=== PATIENT | male | born 1960 | race Caucasian/White ===

== ENCOUNTER 2020-12-21 11:27 | Outpatient (CLI) | payer BC, SELFPAY ==
[2020-12-21 11:56] LABS: Hematocrit 41.3 % (42.0-52.0); Hemoglobin 14.1 g/dL (14.0-18.0); Mean Corpuscular HGB Conc 34.1 g/dl (32-36); Mean Corpuscular Volume 90.8 fl (80-100); Mean Platelet Volume 9.7 fl (7.4-10.4); Platelet Count Result 222 k/mm3 (150-375); Red Blood Count 4.55 M/mm3 (4.6-6.20); Red Cell Distribution Width 12.3 % (11.5-14.5)
[2020-12-21 12:10] LABS: Alanine Aminotransferase 42 U/L (4-50); Albumin Level 4.8 g/dL (3.5-5.1); Alkaline Phosphatase 64 U/L (38-126); Anion Gap 10 mmol/L (8-16); Aspartate Amino Transferase 41 U/L (17-59); Bilirubin,Total 1.1 mg/dL (0.2-1.3); Blood Urea Nitrogen 17 mg/dL (9-20); Calcium 9.5 mg/dL (8.4-10.2); Carbon Dioxide 25 mmol/L (22-30); Chloride 103 mmol/L (98-107); Cholesterol 132 mg/dL (0-200); Estimated Glomerular Filt Rate > 60; Glucose 162 mg/dL (75-110); HDL Direct 49 mg/dL; Potassium 4.9 mmol/L (3.4-5.0); Sodium 138 mmol/L (137-145); Triglycerides 174 mg/dL (<150)
[2020-12-21 12:21] LABS: LDL Cholesterol Direct 62 mg/dL
[2020-12-21 12:40] LABS: Prostate Specific Antigen 0.9 ng/mL (< OR = 4.0)
== END 2020-12-21 11:28 | disposition home or self-care (01) ==
LOC: ANHLAB 11:29
PROVIDERS: PCP Family Medicine; Visit Provider Nurse Practitioner Family
DX: I10 Essential (primary) hypertension (principal); Z12.5 Encounter for screening for malignant neoplasm of prostate
CPT/HCPCS: 36415; 80053; 80061; 84153; 85027; G0103

== ENCOUNTER 2021-07-31 09:08 | Outpatient (CLI) | payer BC, SELFPAY ==
[2021-07-31 09:28] LABS: Hematocrit 37.3 % (42.0-52.0); Hemoglobin 12.1 g/dL (14.0-18.0); Mean Corpuscular HGB Conc 32.4 g/dl (32-36); Mean Corpuscular Hemoglobin 30.6 pg (26-34); Mean Corpuscular Volume 94.2 fl (80-100); Mean Platelet Volume 9.6 fl (7.4-10.4); Platelet Count Result 214 k/mm3 (150-375); Red Blood Count 3.96 M/mm3 (4.6-6.20); Red Cell Distribution Width 12.9 % (11.5-14.5); White Blood Count 8.1 K/mm3 (4.5-10.0)
[2021-07-31 10:05] LABS: Anion Gap 12 mmol/L (8-16); Blood Urea Nitrogen 43 mg/dL (9-20); Calcium 9.3 mg/dL (8.4-10.2); Carbon Dioxide 20 mmol/L (22-30); Chloride 107 mmol/L (98-107); Cholesterol 145 mg/dL (0-200); Estimated Glomerular Filt Rate > 60; Glucose 183 mg/dL (65-110); HDL Direct 40 mg/dL; Sodium 139 mmol/L (137-145); Triglycerides 390 mg/dL (<150)
[2021-07-31 10:14] LABS: LDL Cholesterol Direct 48 mg/dL
[2021-07-31 10:37] LABS: Prostate Specific Antigen 0.9 ng/mL (< OR = 4.0)
== END 2021-07-31 09:09 | disposition home or self-care (01) ==
PROVIDERS: PCP Family Medicine; Visit Provider Nurse Practitioner Family
DX: N28.9 Disorder of kidney and ureter, unspecified (principal); Z12.5 Encounter for screening for malignant neoplasm of prostate; I10 Essential (primary) hypertension; F41.9 Anxiety disorder, unspecified
CPT/HCPCS: 36415; 80048; 80061; 84153; 84443; 85027

== ENCOUNTER 2021-11-13 08:01 | Outpatient (CLI) | payer BC, SELFPAY ==
[2021-11-13 09:19] LABS: Cholesterol 163 mg/dL (0-200); HDL Direct 40 mg/dL; Triglycerides 407 mg/dL (<150)
[2021-11-13 09:29] LABS: LDL Cholesterol Direct 75 mg/dL
[2021-11-13 09:52] LABS: Prostate Specific Antigen 0.8 ng/mL (< OR = 4.0)
== END 2021-11-13 08:02 | disposition home or self-care (01) ==
PROVIDERS: PCP Family Medicine; Visit Provider Nurse Practitioner Family
DX: R79.89 Other specified abnormal findings of blood chemistry (principal); E78.2 Mixed hyperlipidemia; Z12.5 Encounter for screening for malignant neoplasm of prostate
CPT/HCPCS: 36415; 80061; 84153; G0103

== ENCOUNTER 2022-07-18 09:09 | Outpatient (CLI) | payer BC, SELFPAY ==
[2022-07-18 09:58] LABS: Hematocrit 36.5 % (42.0-52.0); Mean Corpuscular HGB Conc 32.9 g/dl (32-36); Mean Corpuscular Hemoglobin 30.2 pg (26-34); Mean Corpuscular Volume 91.9 fl (80-100); Platelet Count Result 226 k/mm3 (150-375); Red Blood Count 3.97 M/mm3 (4.6-6.20); Red Cell Distribution Width 12.8 % (11.5-14.5); White Blood Count 9.8 K/mm3 (4.5-10.0)
[2022-07-18 10:10] LABS: Alanine Aminotransferase 21 U/L (6-50); Albumin Level 4.7 g/dL (3.5-5.1); Alkaline Phosphatase 63 U/L (38-126); Anion Gap 14 mmol/L (8-16); Aspartate Amino Transferase 30 U/L (17-59); Blood Urea Nitrogen 44 mg/dL (9-20); Calcium 9.2 mg/dL (8.4-10.2); Carbon Dioxide 18 mmol/L (22-30); Chloride 101 mmol/L (98-107); Cholesterol 130 mg/dL (0-200); Estimated Glomerular Filt Rate 44; Glucose 170 mg/dL (65-110); HDL Direct 35 mg/dL; Potassium 5.1 mmol/L (3.4-5.0); Sodium 133 mmol/L (137-145); Triglycerides 313 mg/dL (<150)
[2022-07-18 10:21] LABS: LDL Cholesterol Direct 37 mg/dL
[2022-07-18 10:39] LABS: Hemoglobin A1C 6.9 % (<5.7)
[2022-07-18 11:24] LABS: Creatinine Urine 113.4 mg/dL
[2022-07-18 11:29] LABS: MALB Creatinine Ratio 36.2 mg/g (0-30)
== END 2022-07-18 09:10 | disposition home or self-care (01) ==
LOC: ANHLAB 09:10
PROVIDERS: PCP Family Medicine; Visit Provider Nurse Practitioner Family
DX: E11.9 Type 2 diabetes mellitus without complications (principal); F41.1 Generalized anxiety disorder; M10.9 Gout, unspecified; Z12.5 Encounter for screening for malignant neoplasm of prostate; E78.2 Mixed hyperlipidemia; I10 Essential (primary) hypertension
CPT/HCPCS: 36415; 80053; 80061; 82043; 83036; 84153; 84443; 84550; 85027; G0103

== ENCOUNTER 2022-12-31 00:26 | Day surgery (SDC) | payer BC, SELFPAY ==
[2022-12-18 09:36] VITALS: BMI 32.8
--- NOTE | 2022-12-28 15:30 | PM.HPGS ---
History of Present Illness History of Present Illness Consent: Risks, benefits, and alternatives have been discussed and questions answered. Patient agrees to proceed with procedure. Chief complaint: neoplasm screening Narrative: Leroy Ariza is a 62 year old male Referred for colon cancer screening. His last colonoscopy was a little over 2 years ago. He states that he has had polyps removed in the past. He has also had multiple episodes of diverticulitis, most recently just a few months ago. Review of Systems Review of Systems: All systems reviewed & are unremarkable except as noted in HPI and below PMFSH Past Medical History Medical History Arthritis of shoulder region, left BMI 32.0-32.9,adult BMI 33.0-33.9,adult BMI 34.0-34.9,adult Claustrophobia Diabetes Right rotator cuff tendinitis Family History Family History Mother Hypertension Family history of Alzheimer's disease Father Family history of heart disease in male family member before age 55 Sibling Hypertension Other Cerebrovascular accident Diabetes mellitus Family history of gout Family history of malignant neoplasm Social History Social History Smoking status: Never smoker Second hand tobacco smoke exposure: Yes Alcohol intake: current Substance use: never Substance use type: does not use Lack of Transportation: No Lack of Food: Never True Current Housing: I Have Housing Concerned About Future Housing: No Difficulty Paying Gas/Electric Bills: No Difficulty Paying for Meds: No Currently Unemployed: No Education: High School Diploma/GED Difficulty w/ Childcare or Family Care: No Living arrangements: with family Occupation/Education: occupation 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 Gender identity (if verbalized by the patient): Male Spiritual care concerns: No Meds Home Medications and Allergies Home Medications Medication Instructions Recorded Confirmed Type rosuvastatin 40 mg tablet 40 mg PO DAILY #90 tabs 09/18/22 12/31/22 Rx bupropion HCl 150 mg 24 hr tablet, 150 mg PO QAM #90 tabs 10/07/22 12/31/22 Rx extended release tramadol 50 mg tablet See Rx Instructions PO .COMPLEX 12/06/22 12/31/22 Rx PRN pain #120 tabs allopurinol 100 mg tablet 100 mg PO DAILY 12/18/22 12/31/22 History carvedilol 12.5 mg tablet 12.5 mg PO BID 12/18/22 12/31/22 History meloxicam 15 mg tablet 15 mg PO DAILY 12/18/22 12/31/22 History tamsulosin 0.4 mg capsule 0.4 mg PO DAILY 12/18/22 12/31/22 History clonazepam 0.5 mg tablet 0.5 mg PO TID PRN anxiety #90 tabs 12/31/22 12/31/22 Rx icosapent ethyl 1 gram capsule 2 g PO BID #360 caps 12/31/22 12/31/22 Rx lisinopril 40 mg tablet 40 mg PO DAILY #90 tabs 12/31/22 12/31/22 Rx metformin 500 mg tablet,extended 1,000 mg PO DAILY #180 tabs 12/31/22 12/31/22 Rx release 24 hr Allergies Allergy/AdvReac Type Severity Reaction Status Date / Time codeine Allergy Unknown Unknown Verified 12/31/22 07:40 naproxen Allergy Unknown Unknown Verified 12/31/22 07:40 Exam Const: General: alert Orientation/consciousness: patient oriented x3 Resp: Auscultation: clear to auscultation bilaterally Cardio: Rhythm: regular rhythm GI: GI Palp: Yes Soft to palpation and No Tenderness to palpation present (GI) Neuro: General: patient oriented x3 Assessment and Plan Assessment and plan (1) Encounter for screening colonoscopy: Code(s): Z12.11 - Encounter for screening for malignant neoplasm of colon Status: Acute Assessment and Plan: Colonoscopy with possible biopsy or polypectomy or cautery or injection of substances.
[2022-12-31 11:15] VITALS: BP 141/86; PULSE 86; RESP 18; TEMP 36.3; O2SAT 99; BMI 32.8
[2022-12-31] MEDS: LACTATED RINGERS 1,000 ML 150 ML IV CONT (11:29)
[2022-12-31 11:30] LABS: Glucose Point of Care 181 mg/dl (65-105)
[2022-12-31 12:25] VITALS: BP 118/75; PULSE 85; RESP 20; O2SAT 96
[2022-12-31 12:35] VITALS: BP 129/85; PULSE 80; RESP 15; O2SAT 97
[2022-12-31 12:45] VITALS: BP 131/88; PULSE 78; RESP 17; O2SAT 98
== END 2022-12-31 12:55 | disposition home or self-care (01) ==
PROVIDERS: PCP Family Medicine; Visit Provider Internal Medicine Gastroenterology
PROC: 0DJD8ZZ Inspection of Lower Intestinal Tract, Via Natural or Artificial Opening Endoscopic (ICD-10-PCS; CPT 45378; principal; 2022-12-31 12:30)
DX: Z12.11 Encounter for screening for malignant neoplasm of colon (principal); K57.30 Diverticulosis of large intestine without perforation or abscess without bleeding; Z86.010 Personal history of colon polyps; E11.9 Type 2 diabetes mellitus without complications; Z79.84 Long term (current) use of oral hypoglycemic drugs
CPT/HCPCS: 45378; 82948; J2704; J7120

== ENCOUNTER 2023-05-14 08:38 | Outpatient (CLI) | payer BC, SELFPAY ==
[2023-05-14 09:04] LABS: Hematocrit 36.4 % (42.0-52.0); Hemoglobin 11.6 g/dL (14.0-18.0); Mean Corpuscular HGB Conc 31.9 g/dl (32-36); Mean Corpuscular Hemoglobin 30.1 pg (26-34); Mean Corpuscular Volume 94.5 fl (80-100); Mean Platelet Volume 9.6 fl (7.4-10.4); Platelet Count Result 199 k/mm3 (150-375); Red Blood Count 3.85 M/mm3 (4.6-6.20); Red Cell Distribution Width 12.5 % (11.5-14.5); White Blood Count 7.2 K/mm3 (4.5-10.0)
[2023-05-14 09:14] LABS: Alanine Aminotransferase 31 U/L (6-50); Albumin Level 4.8 g/dL (3.5-5.1); Alkaline Phosphatase 74 U/L (38-126); Anion Gap 11 mmol/L (8-16); Aspartate Amino Transferase 31 U/L (17-59); Bilirubin,Total 0.9 mg/dL (0.2-1.3); Blood Urea Nitrogen 31 mg/dL (9-20); Calcium 9.2 mg/dL (8.4-10.2); Carbon Dioxide 22 mmol/L (22-30); Chloride 105 mmol/L (98-107); Cholesterol 116 mg/dL (0-200); Estimated Glomerular Filt Rate > 60; Glucose 184 mg/dL (65-110); HDL Direct 40 mg/dL; Sodium 138 mmol/L (137-145); Triglycerides 255 mg/dL (<150)
[2023-05-14 09:17] LABS: Iron 98 ug/dL (49-181)
[2023-05-14 09:25] LABS: LDL Cholesterol Direct 41 mg/dL
[2023-05-14 09:27] LABS: Percent Iron Saturation 23 % (20-50)
== END 2023-05-14 08:39 | disposition home or self-care (01) ==
LOC: ANHLAB 08:39
PROVIDERS: PCP Family Medicine; Visit Provider Nurse Practitioner Family
DX: F41.9 Anxiety disorder, unspecified (principal); D64.9 Anemia, unspecified; I10 Essential (primary) hypertension; E78.2 Mixed hyperlipidemia; Z12.5 Encounter for screening for malignant neoplasm of prostate
CPT/HCPCS: 36415; 80053; 80061; 83540; 83550; 84153; 84443; 85027; G0103

== ENCOUNTER 2023-07-05 13:44 | Inpatient (IN) | payer BC, SELFPAY ==
[2023-07-05] VITALS (26 sets, daily range): BP systolic 102–132; BP diastolic 64–81; PULSE 95–112; RESP 14–28; TEMP 36.6; O2SAT 96–100; BMI 33.3
--- NOTE | ~2023-07-05 | XR_ITS ---
EXAMINATION: XR chest 2V DATE: 07/05/2023 14:43 INDICATION: Increasing shortness of breath TECHNIQUE: Frontal and lateral views of the chest are obtained COMPARISON: 07/19/2020 FINDINGS: The lungs are free of acute opacities. No pleural effusion or pneumothorax. The cardiomedia stinal silhouette is normal. There is mild thoracic spondylosis. There is advanced osteoarthritis of the left glenohumeral joint. IMPRESSION: 1. No acute cardiopulmonary abnormality. Reviewed, dictated and finalized at location F.
--- NOTE | ~2023-07-05 | XR_ITS ---
EXAMINATION: XR abdomen obstructive series DATE: 07/05/2023 14:43 INDICATION: Constipation. TECHNIQUE: Upright and supine views of the abdomen on 3 radiographs were obtained. COMPARISON: None. FINDINGS: There are no dilated loops of bowel. There is a moderate volume of stool in the colon. No f ree intraperitoneal gas. IMPRESSION: 1. Nonobstructive bowel gas pattern. Reviewed, dictated and finalized at location B.
--- NOTE | ~2023-07-05 | US_ITS ---
Renal-Bladder ultrasound Clinical History: Acute kidney injury Technique: Real-time sonographic imaging of the kidneys and urinary bladder was performed. Findings: The right kidney measures 13.2 cm in length and the left kidney measures 15.2 cm. There is no hydronephrosis or renal calculus identified. Renal cortical echogenicity is within normal limits. Prominent bilateral renal cysts are present, measuring up to 4.9 cm in diameter on the right, and 6.7 cm on the left.. The urinary bladder is partially distended at the time of this exam. No intraluminal echoes are ident ified. No abnormal wall thickening is seen. Impression: No hydronephrosis. Bilateral renal cysts, as detailed above. Reviewed, dictated and finalized at location M. Impression: No hydronephrosis. Bilateral renal cysts, as detailed above.
--- NOTE | 2023-07-05 13:52 | ECG_ITS ---
Measurements Intervals [place] Rate: 110 P: 32 ID: 156 QRS: 38 QRSD: 90 T: 26 QT: 298 QTc: 405 Interpretive Statements SINUS TACHYCARDIA ABNORMAL RHYTHM ECG NO PREVIOUS ECG AVAILABLE FOR COMPARISON Electronically Signed On 07-06-2023 8:47:29 CDT by Carla Goodwin M.D.
[2023-07-05 14:05] LABS: Basophils Absolute Auto 0.1 K/mm3 (0.0-0.1); Basophils Percent Auto 0.4 % (0.2-1.2); Eosinophils Absolute Auto 0.1 K/mm3 (0-0.3); Eosinophils Percent Auto 0.4 % (0-4.4); Hematocrit 39.7 % (42.0-52.0); Hemoglobin 13.5 g/dL (14.0-18.0); Immature Granulocyte Absolute 0.07 K/mm3 (0.00-0.031); Immature Granulocyte Percent A 0.5 % (0-0.5); Lymphocytes Absolute Auto 2.21 K/mm3 (0.9-3.2); Lymphocytes Percent Auto 15.6 % (18.3-44.2); Mean Corpuscular Hemoglobin 30.5 pg (26-34); Mean Corpuscular Volume 89.8 fl (80-100); Mean Platelet Volume 9.8 fl (7.4-10.4); Monocytes Absolute Auto 1.2 K/mm3 (0.1-0.6); Monocytes Percent Auto 8.6 % (2.6-8.5); Neutrophils Absolute Auto 10.5 K/mm3 (1.3-6.7); Neutrophils Percent Auto 74.5 % (45.5-73.1); Platelet Count Result 248 k/mm3 (150-375); Red Blood Count 4.42 M/mm3 (4.6-6.20); Red Cell Distribution Width 12.6 % (11.5-14.5); White Blood Count 14.1 K/mm3 (4.5-10.0)
[2023-07-05 14:17] LABS: Alanine Aminotransferase 33 U/L (6-50); Albumin Level 5.8 g/dL (3.5-5.1); Alkaline Phosphatase 79 U/L (38-126); Anion Gap 21 mmol/L (8-16); Aspartate Amino Transferase 32 U/L (17-59); Bilirubin,Total 1.4 mg/dL (0.2-1.3); Blood Urea Nitrogen 79 mg/dL (9-20); Calcium 10.3 mg/dL (8.4-10.2); Carbon Dioxide 14 mmol/L (22-30); Chloride 100 mmol/L (98-107); Estimated Glomerular Filt Rate 14; Glucose 194 mg/dL (65-110); Potassium 5.6 mmol/L (3.4-5.0); Sodium 135 mmol/L (137-145)
--- NOTE | 2023-07-05 14:27 | ED.GENADULT ---
HPI - General Adult General Chief complaint: Shortness of Breath/Dyspnea Stated complaint: SOB Time Seen by Provider: 07/05/23 14:08 History of Present Illness HPI narrative: 62-year-old male present to the emergency department for evaluation of shortness of breath, lower leg pain and constipation. Patient reports he has been eating and drinking okay but does admit to drinking multiple sodas a day rather than water. Patient does report having some urinary retention and decreased urinary caliber. Patient denies any new medications. Related Data Home Medications Medication Instructions Recorded Confirmed meloxicam 15 mg tablet 15 mg PO DAILY 12/18/22 07/05/23 allopurinol 100 mg tablet 100 mg PO DAILY 07/05/23 07/05/23 carvedilol 12.5 mg tablet 12.5 mg PO DAILY 07/05/23 07/05/23 Allergies Allergy/AdvReac Type Severity Reaction Status Date / Time codeine Allergy Unknown Unknown Verified 07/05/23 14:07 naproxen Allergy Unknown Unknown Verified 07/05/23 14:07 Review of Systems Review of Systems: All systems reviewed & are unremarkable except as noted in HPI and below PMFSH Past Medical History Medical History (Updated 07/05/23 @ 17:17 by Aisha Vargas NP) Anxiety disorder, unspecified Arthritis of shoulder region, left BMI 32.0-32.9,adult BMI 33.0-33.9,adult BMI 34.0-34.9,adult BPH (benign prostatic hyperplasia) Claustrophobia Diabetes Essential (primary) hypertension Gout, unspecified Iron deficiency anemia Other hyperlipidemia Right rotator cuff tendinitis Type 2 diabetes mellitus without complications Surgical History Surgical History (Updated 07/05/23 @ 17:16 by Aisha Vargas NP) H/O colonoscopy with polypectomy History of cataract surgery Family History Family History Mother Hypertension Family history of Alzheimer's disease Father Family history of heart disease in male family member before age 55 Acute myocardial infarction Sibling Hypertension Other Cerebrovascular accident Diabetes mellitus Family history of gout Family history of malignant neoplasm Social History Social History (Updated 07/05/23 @ 17:19 by Aisha Vargas NP) Social History: [employer]iam [employer] other. 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 Gender identity (if verbalized by the patient): Male Spiritual care concerns: No Exam Narrative: APPEARANCE: Well appearing, no pain, no distress, well-nourished. HEAD: normocephalic, atraumatic. EYES: PERRLA/EOMI, conjunctivae clear. NOSE: Normal no drainage EARS:TMS clear with good light reflex. THROAT: Pharynx clear, no exudate. NECK: Supple. No adenopathy, no masses. RESPIRATORY: Airway patent, respirations nonlabored. Clear to auscultation bilaterally, no rales, rhonchi, wheezing. CARDIOVASCULAR: Regular rate and rhythm without murmurs rubs or gallops. ABDOMINAL: Soft, nontender, nondistended, normal bowel sounds MUSCULOSKELETAL: Moves all extremities. Strength/ROM intact, No edema, No calf tenderness. NEURO: Alert. Cranial nerves II through XII intact. Grossly intact SKIN: Warm, dry. Normal Color Course Course Emergency Course: 62-year-old male presented the ED for evaluation of worsening chronic shoulder pain, constipation and leg cramping. Patient was found to have acute on chronic kidney
[2023-07-05] MEDS: SODIUM CHLORIDE 0.9% IV 1,000 ML 999 ML IV CONT (15:06)
[2023-07-05 15:40] LABS: Creatine Kinase 380 U/L (55-170)
[2023-07-05 15:54] LABS: Glucose Point of Care 163 mg/dl (65-105)
[2023-07-05] MEDS: SODIUM ZIRCONIUM CYCLOSILICATE 10 GM POWD.PACK PO (16:03)
[2023-07-05] MEDS: DEXTROSE 50% 25 GM/50 ML SYRINGE IV PUSH (16:03)
[2023-07-05] MEDS: HYDROmorphone HCL INJ (*CRX) 1 MG/ML SYR IV PUSH (16:03)
[2023-07-05] MEDS: INSULIN HUMAN REGULAR (*BKC) 100 UNITS/ML 7 UNITS IV PUSH (16:03)
[2023-07-05] MEDS: LACTATED RINGERS 1,000 ML 100 ML IV CONT (16:52)
--- NOTE | 2023-07-05 17:11 | PM.IMHP ---
H&P: HPI History of Present Illness Date/Time: 07/05/23 17:11 Chief Complaint: Shortness of breath Narrative: This is a 62-year-old male patient who has a history of having acute kidney injury in the past. The patient states that he was outside today working any feels that he may have gotten overheated. However the patient has been drinking several sodas instead of water today. The patient reported that he also has some urinary retention and decreased urinary output. The patient stated that he would do a little bit of work any feel short of breath and could not complete his work today. Therefore he came to the emergency room. His white count is 14.1. H&H is 13.5 and 39.7. Sodium is 134. His potassium was 5.6 is now 4.9. BUN is 79 and remained 79 creatinine was 4.4 and is now 3.4. GFR is 14 initially and now 18. Glucose is 194. Calcium was 10.3 now 9.1. Abdominal x-ray was read as nonobstructive bowel pattern. The patient is complaining of constipation since he takes narcotics for pain he has been having problems with constipation he is supposed to take MiraLax but did not. Patient has chronic left shoulder pain and has not been able to get shoulder surgery. Chest x-ray today shows no acute cardiopulmonary abnormality. The patient was given IV fluids, Dilaudid, IV insulin, Lokelma, Relistor, D50, and IV fluids in the emergency room. The patient is being admitted to observation status on the date of service of 07/05/2023. Review of Systems Review of Systems: All systems reviewed & are unremarkable except as noted in HPI and below Constitutional: Constitutional: Reports as per HPI and Reports no additional constitutional complaints Eyes: Eyes: Reports as per HPI and Reports no additional eye complaints ENT: Reports system reviewed and no additional complaints, except as documented and Reports Normal hearing present Cardiovascular: Cardiovascular: Reports no additional cardiovascular complaints Respiratory: Respiratory: Reports no additional respiratory complaints and Reports no additional respiratory complaints Gastrointestinal: Gastrointestinal: Reports as per HPI and Reports no additional gastrointestinal complaints Musculoskeletal: Musculoskeletal: Reports no additional musculoskeletal complaints Integumentary/Breasts: Skin/Breast: Reports system reviewed and no additional complaints, except as docu and Reports as per HPI Neurologic: Reports system reviewed and no additional complaints, except as documented, Reports as per HPI and Reports Normal hearing present Psychiatric: Psychiatric: Reports no additional psychiatric complaints and Reports as per HPI Endocrine: Endocrine: Reports no additional endocrine complaints Hematologic/Lymphatic: Hematologic/Lymphatic: Reports no additional hematologic/lymphatic complaints Allergic/Immunologic: Allergic/Immunologic: Reports no additional allergic/immunologic complaints [facility] Past Medical History Medical History (Updated 07/05/23 @ 23:25 by Aisha Vargas NP) Anxiety disorder, unspecified Arthritis of shoulder region, left BMI 32.0-32.9,adult BMI 33.0-33.9,adult BMI 34.0-34.9,adult BPH (benign prostatic hyperplasia) Claustrophobia Depression Diabetes Diverticulitis Essential (primary) hypertension Gout, unspecified Iron deficiency anemia Other hyperlipidemia Right rotator cuff tendinitis Type 2 diabetes mellitus without complications Surgical History Surgical History (Updated 07/05/23 @ 23:25 by Aisha Vargas NP) H/O colonoscopy with polypectomy History of cataract surgery History of removal of pigmented skin lesion BCC Family History Family History Mother Hypertension Family history of Alzheimer's disease Father Family history of heart disease in male family member before age 55 Acute myocardial infarction Sibling Hypertension Other Cerebrovascular accident D
[2023-07-05] MEDS: METHYLNALTREXONE 12 MG/0.6 ML VIAL SUB-Q (18:24)
[2023-07-05] MEDS: polyethylene glycoL 3350 17 GM POWD.PACK PO (18:26)
[2023-07-05 18:34] LABS: Glucose Point of Care 216 mg/dl (65-105)
--- NOTE | 2023-07-05 19:51 | ADMGEN ---
This patient, Leroy Ariza, was admitted to Medical Room 345-01. Patient/family oriented to hospital policies and general routines including ID bracelet, bed and alarms, visiting hours, pain management, procedures, bathroom and other care routines, personal items, smoking policy, room service/diet, and visiting hours. Information on how to activate the Rapid Response Team has been discussed. Patient/Family are encouraged to report perceived risks to care and to ask questions if they do not understand what they are told or what they should do.
[2023-07-05 19:57] LABS: Anion Gap 16 mmol/L (8-16); Blood Urea Nitrogen 79 mg/dL (9-20); Calcium 9.1 mg/dL (8.4-10.2); Carbon Dioxide 16 mmol/L (22-30); Chloride 102 mmol/L (98-107); Estimated CRCL calculation 25 ml/min; Estimated Glomerular Filt Rate 18; Glucose 201 mg/dL (65-110); Potassium 4.9 mmol/L (3.4-5.0); Sodium 134 mmol/L (137-145)
[2023-07-05 23:02] LABS: Potassium Urine Random 57.9 meq/L; Sodium Urine Random 9 meq/L
[2023-07-06] VITALS (13 sets, daily range): BP systolic 111–138; BP diastolic 58–75; PULSE 76–100; RESP 14–18; TEMP 36.7–37.1; O2SAT 96–99
--- NOTE | 2023-07-06 | ECHO_ITS ---
Patient Info Name: Leroy Ariza Age: 62 years : 1960 Gender: Male Ht: 70 in Wt: 235 lbs BSA: 2.33 m2 HR: 100 bpm BP: 116 / 64 mmHg Heart Rhythm: Sinus Rhythm Technical Quality: Good Exam Date: 07/06/2023 9:53 AM Exam Location: [facility] Patient Status: Inpatient Admit Date: 07/06/2023 Staff Ordering Physician: Aisha Vargas NP Project Geophysicist: Mack Valentine RDCS Attending Provider: Placido Ring MD Referring Physician: Sam GARCIA; Exam Type: CA echo doppler color flow Study Info Indications - murmur Complete two-dimensional, color flow and Doppler transthoracic echocardiogram is performed. Summary 1. Complete two-dimensional, color flow and Doppler transthoracic echocardiogram is performed. 2. Normal left ventricular size with mild concentric hypertrophy. Good systolic function of all segments. Ejection fraction 55-60%. Normal diastolic function. 3. Right ventricle appears mildly dilated. There is more than the average respiratory variation in right ventricular size, as well as flattening of the intraventricular septum with respiration. Consider pulmonary disease, or cardiac constriction. May be a normal variant as well. 4. Minimal pulmonic stenosis. The velocity through the pulmonic valve is mildly elevated at 1.6 m/sec (ULN 1.2 m/sec). 5. Trivial tricuspid regurgitation. 6. Unable to accurately estimate pulmonary pressure on this study. 7. Dilated inferior vena cava with <50% collapse upon inspiration consistent with elevated right atrial pressure, 10 mmHg. 8. Normal sinus rhythm. Left Ventricle Left ventricular chamber dimension is normal. Left ventricular systolic function is normal, estimated at 55-60%. There is mildly increased left ventricular wall thickness. Left ventricular septal wall motion is normal. The left ventricular diastolic function is normal. Right Ventricle Right ventricular chamber dimension is mildly enlarged. Right ventricular systolic function is normal. Left Atria Left atrial chamber dimension is normal. Right Atria Right atrial chamber dimension is normal. Aortic Valve The aortic valve is trileaflet. There is no aortic valve sclerosis. There is no aortic valve stenosis. There is no aortic valve regurgitation. Pulmonic Valve The pulmonic valve is normal. There is mild pulmonic valve stenosis. There is no pulmonic regurgitation. Mitral Valve The mitral valve has normal leaflets. There is no mitral valve stenosis. There is no mitral valve regurgitation. Tricuspid Valve The tricuspid valve leaflets are normal. There is no significant tricuspid valve stenosis. There is no tricuspid valve regurgitation. No pulmonary hypertension, estimated pulmonary arterial systolic pressure is 14 mmHg. Pericardium/Pleural The pericardium appears normal. There is no pericardial effusion. Inferior Vena Cava Dilated inferior vena cava with <50% collapse upon inspiration consistent with elevated right atrial pressure, 10 mmHg. Aorta The aortic root size at the sinus of Valsalva is normal. The prox ascending aorta size is normal. Left Ventricular Outflow Tract Name Value Normal LVOT 2D LVOT Diameter 2.1 cm LVOT Doppler LVOT Pea
[2023-07-06] MEDS: clonazePAM (*CRX) 0.5 MG TABLET PO ×2 (00:10→20:19)
[2023-07-06] MEDS: HYDROmorphone HCL INJ (*CRX) 1 MG/ML SYR 0.5 MG IV PUSH (00:11)
[2023-07-06] MEDS: LACTATED RINGERS 1,000 ML 100 ML IV CONT ×3 (03:10→20:20)
[2023-07-06 05:44] LABS: Basophils Percent Auto 0.5 % (0.2-1.2); Eosinophils Absolute Auto 0.2 K/mm3 (0-0.3); Eosinophils Percent Auto 2.5 % (0-4.4); Hematocrit 32.2 % (42.0-52.0); Hemoglobin 10.7 g/dL (14.0-18.0); Immature Granulocyte Absolute 0.05 K/mm3 (0.00-0.031); Immature Granulocyte Percent A 0.6 % (0-0.5); Lymphocytes Absolute Auto 3.04 K/mm3 (0.9-3.2); Lymphocytes Percent Auto 34.7 % (18.3-44.2); Mean Corpuscular HGB Conc 33.2 g/dl (32-36); Mean Corpuscular Hemoglobin 30.3 pg (26-34); Mean Corpuscular Volume 91.2 fl (80-100); Mean Platelet Volume 9.9 fl (7.4-10.4); Monocytes Percent Auto 10.9 % (2.6-8.5); Neutrophils Absolute Auto 4.5 K/mm3 (1.3-6.7); Neutrophils Percent Auto 50.8 % (45.5-73.1); Platelet Count Result 190 k/mm3 (150-375); Red Blood Count 3.53 M/mm3 (4.6-6.20); Red Cell Distribution Width 12.7 % (11.5-14.5); White Blood Count 8.8 K/mm3 (4.5-10.0)
[2023-07-06 06:02] LABS: Lactic Acid Reflex 0.8 mmol/L (0.7-2.0)
[2023-07-06 06:03] LABS: Alanine Aminotransferase 25 U/L (6-50); Albumin Level 4.3 g/dL (3.5-5.1); Alkaline Phosphatase 59 U/L (38-126); Anion Gap 11 mmol/L (8-16); Aspartate Amino Transferase 25 U/L (17-59); Bilirubin,Total 1.1 mg/dL (0.2-1.3); Blood Urea Nitrogen 69 mg/dL (9-20); Calcium 8.8 mg/dL (8.4-10.2); Carbon Dioxide 15 mmol/L (22-30); Chloride 106 mmol/L (98-107); Estimated CRCL calculation 34 ml/min; Estimated Glomerular Filt Rate 26; Glucose 139 mg/dL (65-110); Magnesium 1.7 mg/dL (1.6-2.3); Potassium 4.7 mmol/L (3.4-5.0); Sodium 132 mmol/L (137-145)
[2023-07-06 07:06] LABS: Hemoglobin A1C 6.8 % (<5.7)
[2023-07-06 08:06] LABS: Glucose Point of Care 174 mg/dl (65-105)
[2023-07-06] MEDS: carvediloL 12.5 MG TABLET PO ×2 (08:11→20:19)
[2023-07-06] MEDS: TAMSULOSIN HCL 0.4 MG CAPSULE PO (08:11)
[2023-07-06] MEDS: buPROPion HCL XL (24 HR) 150 MG TABCR PO (08:11)
[2023-07-06] MEDS: OMEGA 3 POLYUNSAT FATTY ACIDS 1 GM CAP 2 GM PO ×2 (08:12→16:44)
[2023-07-06] MEDS: polyethylene glycoL 3350 17 GM POWD.PACK PO (08:13)
[2023-07-06] MEDS: HYDROcodone/acetaminophen (*CRX) 5-325 MG TABLET 1 TAB PO ×2 (08:23→17:28)
[2023-07-06 12:06] LABS: Glucose Point of Care 251 mg/dl (65-105)
[2023-07-06] MEDS: INSULIN ASPART (*BKC) 100 UNITS/ML SUB-Q ×2 (12:09→17:23)
--- NOTE | 2023-07-06 13:04 | PM.IMPN ---
Progress Note: A&P Assessment and Plan (1) ADAM (acute kidney injury): Code(s): N17.9 - Acute kidney failure, unspecified Status: Acute Assessment and Plan: Patient presented to the ED due to becoming overheated. UA was found to have a BUN and creatinine of 79/4.4. Patient's baseline creatinine is between 0.8 and 1.2. The patient stated he has had 2 episodes in the past where he is had acute renal failure. Patient was started on IV fluids and today BUN and creatinine are 69/2.5 Renal ultrasound ordered The patient's allopurinol, metformin, lisinopril, and meloxicam on hold at this time into to the acute renal failure. (2) Acute hyperkalemia: Code(s): E87.5 - Hyperkalemia Status: Acute Assessment and Plan: The patient was given regular insulin, D50 and Lokelma in the emergency room now his potassium is back to normal. Continue with IV fluids. (3) Essential (primary) hypertension: Code(s): I10 - Essential (primary) hypertension Status: Acute Assessment and Plan: P.r.n. hydralazine (4) Type 2 diabetes mellitus without complications: Qualifiers: Diabetes mellitus watermaster insulin use: without watermaster use Qualified Code(s): E11.9 - Type 2 diabetes mellitus without complications Code(s): E11.9 - Type 2 diabetes mellitus without complications Status: Acute Assessment and Plan: Metformin is on hold due to the acute renal failure. Accu-Cheks AC and HS with sliding scale insulin. Hemoglobin A1c 6.8 (5) Depression: Code(s): F32.A - Depression, unspecified Status: Acute Assessment and Plan: Continue with bupropion (6) Arthritis of shoulder region, left: Code(s): M19.012 - Primary osteoarthritis, left shoulder Status: Acute Assessment and Plan: The patient is chronically on pain medication. I did give him Relistor as he was complaining of narcotic induced constipation. Subjective Date/time seen: 07/06/23 13:04 Interval history: Patient feeling much better today. Patient is having no difficulty with urinating. He has mild aching back pain but is well managed. He will most likely be able to discharge tomorrow depending on his kidney function. Is having no abdominal pain nausea or vomiting. Review of Systems Review of Systems: All systems reviewed & are unremarkable except as noted in HPI and below Exam Narrative: GENERAL: Comfortable, no acute distress HENMT: moist mucous membranes EYES: EOM intact b/l NECK: no lymphadenopathy RESPIRATORY: clear to auscultation CARDIO: RRR GI: soft, nontender, bowel sounds present SKIN: no rashes EXTREMITIES: no edema, redness or tenderness Objective Data Vital Signs Vital Signs: Vital Signs - 24 hr 07/05/23 13:47 07/05/23 13:55 07/05/23 14:24 Temperature 97.8 F Pulse Rate 112 H 111 H 104 H Respiratory Rate 28 H 23 H 17 Blood Pressure 103/80 103/80 Pulse Oximetry 96 99 98 Oxygen Delivery Room Air 07/05/23 14:47 07/05/23 15:09 07/05/23 15:10 Temperature Pulse Rate 103 H 100 100 Respiratory Rate 18 14 17 Blood Pressure Pulse Oximetry 98 100 99 Oxygen Delivery 07/05/23 15:12 07/05/23 15:19 07/05/23 15:30 Temperature Pulse Rate 98 95 97 Respiratory Rate 20 16 24 H Blood Pressure Pulse Oximetry 99 100 100 Oxygen Delivery 07/05/23 15:31 07/05/23 15:45 07/05/23 16:00 Temperature Pulse Rate 96 97 95 Respiratory Rate 17 16 17 Blood Pressure 104/71 Pulse Oximetry 100 100 99 Oxygen Delivery 07/05/23 16:01 07/05/23 16:16 07/05/23 16:30 Temperature Pulse Rate 96 98 99 Respiratory Rate 19 22 H 14 Blood Pressure 106/67 Pulse Oximetry 98 99 99 Oxygen Delivery 07/05/23 16:31 07/05/23 16:45 07/05/23 17:00 Temperature Pulse Rate 99 96 95 Respiratory Rate 23 H 18 14 Blood Pressure 106/68 Pulse Oximetry 99 99
[2023-07-06 17:14] LABS: Glucose Point of Care 254 mg/dl (65-105)
[2023-07-06] MEDS: ROSUVASTATIN 10 MG TABLET 40 MG PO (20:19)
[2023-07-06 21:51] LABS: Glucose Point of Care 187 mg/dl (65-105)
[2023-07-07] VITALS: PULSE 76
[2023-07-07] MEDS: HYDROcodone/acetaminophen (*CRX) 5-325 MG TABLET 1 TAB PO (02:28)
[2023-07-07 04:07] VITALS: PULSE 72
[2023-07-07 05:40] VITALS: BP 111/62; PULSE 81; RESP 16; TEMP 36.8; O2SAT 97
[2023-07-07 05:40] LABS: Basophils Percent Auto 0.5 % (0.2-1.2); Eosinophils Absolute Auto 0.2 K/mm3 (0-0.3); Eosinophils Percent Auto 2.6 % (0-4.4); Hematocrit 33.1 % (42.0-52.0); Hemoglobin 10.6 g/dL (14.0-18.0); Immature Granulocyte Absolute 0.03 K/mm3 (0.00-0.031); Immature Granulocyte Percent A 0.4 % (0-0.5); Lymphocytes Absolute Auto 2.61 K/mm3 (0.9-3.2); Lymphocytes Percent Auto 32.9 % (18.3-44.2); Mean Corpuscular Hemoglobin 30.2 pg (26-34); Mean Corpuscular Volume 94.3 fl (80-100); Monocytes Absolute Auto 0.8 K/mm3 (0.1-0.6); Monocytes Percent Auto 9.7 % (2.6-8.5); Neutrophils Absolute Auto 4.3 K/mm3 (1.3-6.7); Neutrophils Percent Auto 53.9 % (45.5-73.1); Platelet Count Result 185 k/mm3 (150-375); Red Blood Count 3.51 M/mm3 (4.6-6.20); Red Cell Distribution Width 12.7 % (11.5-14.5); White Blood Count 7.9 K/mm3 (4.5-10.0)
[2023-07-07 06:16] LABS: Anion Gap 12 mmol/L (8-16); Blood Urea Nitrogen 48 mg/dL (9-20); Carbon Dioxide 19 mmol/L (22-30); Chloride 109 mmol/L (98-107); Estimated CRCL calculation 60 ml/min; Estimated Glomerular Filt Rate 51; Glucose 171 mg/dL (65-110); Potassium 4.8 mmol/L (3.4-5.0); Sodium 140 mmol/L (137-145)
[2023-07-07 08:00] VITALS: PULSE 79
[2023-07-07 08:50] VITALS: BP 138/72; PULSE 73
--- NOTE | 2023-07-07 08:51 | PC.NURSE ---
Patient called RN into room and states I want to see a doctor now. I want to leave.
[2023-07-07 08:57] VITALS: PULSE 73
[2023-07-07] MEDS: TAMSULOSIN HCL 0.4 MG CAPSULE PO (08:57)
[2023-07-07] MEDS: buPROPion HCL XL (24 HR) 150 MG TABCR PO (08:57)
[2023-07-07] MEDS: carvediloL 12.5 MG TABLET PO (08:57)
[2023-07-07] MEDS: OMEGA 3 POLYUNSAT FATTY ACIDS 1 GM CAP 2 GM PO (08:59)
[2023-07-07] MEDS: LACTATED RINGERS 1,000 ML 100 ML IV CONT (09:04)
[2023-07-07 09:37] LABS: Glucose Point of Care 190 mg/dl (65-105)
--- NOTE | 2023-07-07 10:43 | PM.DS ---
DS: Admitting Diagnosis Discharge Date 07/07/23 Admitting Diagnosis ADAM DS: Discharge Diagnosis Discharge Diagnosis (1) ADAM (acute kidney injury): Code(s): N17.9 - Acute kidney failure, unspecified Status: Acute (2) Acute hyperkalemia: Code(s): E87.5 - Hyperkalemia Status: Acute (3) Essential (primary) hypertension: Code(s): I10 - Essential (primary) hypertension Status: Acute (4) Type 2 diabetes mellitus without complications: Qualifiers: Diabetes mellitus oil heaterman insulin use: without care home use Qualified Code(s): E11.9 - Type 2 diabetes mellitus without complications Code(s): E11.9 - Type 2 diabetes mellitus without complications Status: Acute (5) Depression: Code(s): F32.A - Depression, unspecified Status: Acute (6) Arthritis of shoulder region, left: Code(s): M19.012 - Primary osteoarthritis, left shoulder Status: Acute DS: Summary Hospital Course Hospital Course: This is a 62-year-old male with past medical history of multiple acute kidney injuries due to dehydration. He presented to the ER on 07/05/2023 due to having decreased urine output. Patient had been drinking several sodas that day. He also experience feelings of shortness of breath and fatigue. His BUN and creatinine on presentation was 79 /4.4. he was also hypokalemic with a potassium of 5.6 Abdominal x-ray read as nonobstructive bowel pattern. Renal ultrasound ordered and he was started on IV fluids, pain medication p.r.n. and Lokelma. Patient's labs improved significantly over 48 hours. Patient's meloxicam, metformin and lisinopril were all held. Renal ultrasound revealing no hydronephrosis and bilateral renal cysts. On the day of discharge patient's BUN and creatinine are 48/1.4. Discussed with patient that he needs to continue hydrating and ordered a follow-up lab to be done in approximately 3 days. Patient's lisinopril and meloxicam discontinued to discharge and recommended he follow-up with his primary regarding his metformin. Did not start patient on new blood pressure medication due to blood pressure being within normal limits while he was hospitalized. His labs and vital signs are stable and he is medically clear for discharge. Time Spent with Patient Time attestation: Total time spent providing and/or coordinating discharge services: Exam Narrative: GENERAL: Comfortable, no acute distress HENMT: moist mucous membranes EYES: EOM intact b/l NECK: no lymphadenopathy RESPIRATORY: clear to auscultation CARDIO: RRR GI: soft, nontender, bowel sounds present SKIN: no rashes EXTREMITIES: no edema, redness or tenderness DS: Data Data Completed and Pending Labs on day of discharge: Labs from last 24 hours 07/07/23 07/07/23 07/06/23 09:02 05:25 20:12 WBC 7.9 RBC 3.51 L Hgb 10.6 L Hct 33.1 L MCV 94.3 MCH 30.2 MCHC 32.0 RDW 12.7 Plt Count 185 MPV 10.0 Immature Gran % (Auto) 0.4 Neut % (Auto) 53.9 Lymph % (Auto) 32.9 Woods % (Auto) 9.7 H Eos % (Auto) 2.6 Baso % (Auto) 0.5 Lymph # (Auto) 2.61 Woods # (Auto) 0.8 H Eos # (Auto) 0.2 Baso # (Auto) 0.0 Abs Immat Gran (auto) 0.03 Absolute Neuts (auto) 4.3 Absolute Nucleated RBC 0.0 Nucleated RBC % 0.0 Sodium 140 Potassium 4.8 Chloride 109 H Carbon Dioxide 19 L Anion Gap 12 BUN 48 H D Creatinine 1.40 H Estim Creat Clear Calc 60 Estimated GFR 51 L Glucose 171 H POC Capillary Glucose 190 H 187 H Calcium 9.0 07/06/23 07/06/23 17:08 11:56 WBC RBC Hgb Hct MCV MCH MCHC RDW Plt Count MPV Immature Gran % (Auto) Neut % (Auto) Lymph % (Auto) Woods % (Auto) Eos % (Auto) Baso % (Auto) Lymph # (Auto) Woods # (Auto) Eos # (Auto) Baso # (Auto) Abs Immat Gran (auto) Absolute Neuts (auto) Absolute Nucleated RBC Nucleated RBC %
[2023-07-09 18:24] LABS: Osmolality, Urine 503 mOsm/kg (50-1200)
== END 2023-07-07 12:10 | disposition home or self-care (01) | DRG 684 ==
LOC: ANHED 15:49 → ANH3MEDSUR 16:59 → ANH3MED 19:06
PROVIDERS: Nurse Practitioner; Admitting Provider Internal Medicine; Emergency Provider Emergency Medicine; PCP Family Medicine; Visit Provider Internal Medicine Critical Care Medicine
DX: N17.9 Acute kidney failure, unspecified (principal); D50.9 Iron deficiency anemia, unspecified; E87.6 Hypokalemia; E11.9 Type 2 diabetes mellitus without complications; E78.5 Hyperlipidemia, unspecified; F32.A Depression, unspecified; F41.8 Other specified anxiety disorders; I10 Essential (primary) hypertension; M10.9 Gout, unspecified; M19.012 Primary osteoarthritis, left shoulder; N40.0 Benign prostatic hyperplasia without lower urinary tract symptoms; Z79.84 Long term (current) use of oral hypoglycemic drugs
CPT/HCPCS: 36415; 71046; 74019; 76775; 80048; 80053; 82550; 82948; 83036; 83605; 83735; 83935; 84133; 84300; 84443; 85025; 93005; 93306; 96361; 96374; 96375; 99285; A9270; G0378; J1170; J1815; J2212; J7030; J7120

== ENCOUNTER 2023-07-23 14:16 | Outpatient (CLI) | payer BC, SELFPAY ==
[2023-07-23 14:37] LABS: Hematocrit 37.9 % (42.0-52.0); Hemoglobin 12.5 g/dL (14.0-18.0); Mean Corpuscular Hemoglobin 30.6 pg (26-34); Mean Corpuscular Volume 92.9 fl (80-100); Mean Platelet Volume 9.8 fl (7.4-10.4); Platelet Count Result 236 k/mm3 (150-375); Red Blood Count 4.08 M/mm3 (4.6-6.20); Red Cell Distribution Width 12.7 % (11.5-14.5); White Blood Count 7.9 K/mm3 (4.5-10.0)
[2023-07-23 14:51] LABS: Anion Gap 13 mmol/L (8-16); Blood Urea Nitrogen 30 mg/dL (9-20); Calcium 9.4 mg/dL (8.4-10.2); Carbon Dioxide 26 mmol/L (22-30); Chloride 100 mmol/L (98-107); Estimated Glomerular Filt Rate 56; Glucose 232 mg/dL (65-110); Potassium 4.6 mmol/L (3.4-5.0); Sodium 139 mmol/L (137-145)
[2023-07-23 16:01] LABS: Iron 94 ug/dL (49-181)
[2023-07-23 16:11] LABS: Percent Iron Saturation 22 % (20-50)
== END 2023-07-23 14:17 | disposition home or self-care (01) ==
LOC: ANHLAB 14:17
PROVIDERS: PCP Family Medicine; Visit Provider Nurse Practitioner Family
DX: N18.9 Chronic kidney disease, unspecified (principal); D64.9 Anemia, unspecified
CPT/HCPCS: 36415; 80048; 83540; 83550; 85027

== ENCOUNTER 2023-10-25 15:04 | Outpatient (CLI) | payer BC, SELFPAY ==
[2023-10-25 16:06] LABS: Anion Gap 17 mmol/L (8-16); Blood Urea Nitrogen 26 mg/dL (9-20); Calcium 9.7 mg/dL (8.4-10.2); Carbon Dioxide 22 mmol/L (22-30); Chloride 101 mmol/L (98-107); Estimated Glomerular Filt Rate > 60; Glucose 219 mg/dL (65-110); Sodium 140 mmol/L (137-145)
== END 2023-10-25 15:05 | disposition home or self-care (01) ==
LOC: ANHLAB 15:06
PROVIDERS: PCP Family Medicine; Visit Provider Nurse Practitioner Family
DX: N28.9 Disorder of kidney and ureter, unspecified (principal)
CPT/HCPCS: 36415; 80048

== ENCOUNTER 2024-01-16 13:42 | Outpatient (CLI) | payer OTHER, SELFPAY ==
[2024-01-16 16:36] LABS: Anion Gap 12 mmol/L (8-16); Blood Urea Nitrogen 29 mg/dL (9-20); Calcium 9.4 mg/dL (8.4-10.2); Carbon Dioxide 22 mmol/L (22-30); Chloride 104 mmol/L (98-107); Estimated Glomerular Filt Rate > 60; Glucose 172 mg/dL (65-110); Potassium 4.2 mmol/L (3.4-5.0); Sodium 138 mmol/L (137-145)
== END 2024-01-16 13:43 | disposition home or self-care (01) ==
PROVIDERS: PCP Family Medicine; Visit Provider Physician Assistant Medical
DX: N17.9 Acute kidney failure, unspecified (principal)
CPT/HCPCS: 36415; 80048

== ENCOUNTER 2024-02-04 05:14 | Emergency (ER) | payer OTHER, SELFPAY ==
[2024-02-04 05:15] VITALS: BP 153/88; PULSE 86; RESP 18; TEMP 36.6; O2SAT 99
[2024-02-04 05:51] VITALS: BP 153/88; PULSE 86; RESP 18; O2SAT 99
--- NOTE | 2024-02-04 07:16 | ED.GENADULT ---
HPI - General Adult General Chief complaint: Unspecified Stated complaint: uvular swelling Time Seen by Provider: 02/04/24 07:05 History of Present Illness HPI narrative: Patient is a 63-year-old male with history of hypertension, diabetes, gout here with throat swelling. Patient states that around 5:30 a.m. this morning he woke up and began coughing. He felt like something was stuck in the back of his throat. He then noted that the tissue hanging from the back of his throat seemed to be swollen and he was able to chew on it with his tongue. This prompted him to come to the emergency department for evaluation. He denies any sore throat, notes that his tonsils are usually large at baseline. He denies any recent changes in medications. Denies any difficulty breathing, rash, nausea, vomiting. No known allergen exposure. No recent illness. He is on lisinopril for his hypertension. No prior history of reaction to this medication. Related Data Allergies Allergy/AdvReac Type Severity Reaction Status Date / Time naproxen Allergy Unknown Rash Verified 02/04/24 05:52 codeine AdvReac Unknown Nausea Verified 02/04/24 07:46 Review of Systems Review of Systems: All systems reviewed & are unremarkable except as noted in HPI and below [facility] Past Medical History Medical History (Updated 02/04/24 @ 10:04 by Maritza Verma MD) ADAM (acute kidney injury) Anxiety disorder, unspecified Arthritis of shoulder region, left BMI 32.0-32.9,adult BMI 33.0-33.9,adult BMI 34.0-34.9,adult BPH (benign prostatic hyperplasia) Claustrophobia Contusion of right elbow Depression Diabetes Diverticulitis Essential (primary) hypertension Gout, unspecified Iron deficiency anemia Other hyperlipidemia Right rotator cuff tendinitis Traumatic rupture of right proximal biceps tendon Type 2 diabetes mellitus without complications Surgical History Surgical History H/O colonoscopy with polypectomy History of cataract surgery History of removal of pigmented skin lesion BCC Family History Family History Mother Hypertension Family history of Alzheimer's disease Father Family history of heart disease in male family member before age 55 Acute myocardial infarction Sibling Hypertension Other Cerebrovascular accident Diabetes mellitus Family history of gout Family history of malignant neoplasm Social History Social History Social History: He lives with his significant other standing. 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 He is lifelong nonsmoker. He does not use any alcohol marijuana or illicit drugs. Code status full code Smoking status: Never smoker Second hand tobacco smoke exposure: Yes Alcohol intake: former Substance use: never Substance use type: marijuana Lack of Transportation: No Lack of Food: Never True Current Housing: I Have Housing Concerned About Future Housing: No Difficulty Paying Gas/Electric Bills: No Difficulty Paying for Meds: No Currently Unemployed: No Education: Trade/Vocational Certificate Difficulty w/ Childcare or Family Care: No Living arrangements: with family Occupation/Education: occupation Additional occupation/education comments: [employer] contractor. Gender identity (if verbalized by the patient): Male Spiritual care concerns: No Exam Narrative: GENERAL: Well-appearing, well-nourished, and in no acute distress. HEAD: Normocephalic, atraumatic. EYES: PERRLA and EOMI. ENT: Nares clear. Mucous membranes moist. Uvular edema present, uvula midline. Tonsils large, mild exudates present bilaterally, no erythema. No tongue swelling, no lip swelling. No stridor. NECK: Supple. CHEST: Clear to auscultation. No respiratory distress. HEART: Regul
[2024-02-04] MEDS: FAMOTIDINE 20 MG TABLET 40 MG PO (08:00)
[2024-02-04] MEDS: dexAMETHasone SOD PHOS INJ 10 MG/ML 1 ML VIAL BY MOUTH (08:00)
[2024-02-04] MEDS: diphenhydrAMINE HCl CAP 25 MG CAPSULE 50 MG PO (08:00)
[2024-02-04 08:06] VITALS: BP 123/86; PULSE 79; RESP 18; TEMP 36.8; O2SAT 95
[2024-02-04 08:23] LABS: Strep Group A RT-PCR NOT DETECTED (Negative)
[2024-02-04 08:35] LABS: Influenza A QL RT-PCR Negative (Negative); Influenza B QL RT-PCR Negative (Negative); RSV RNA, RT-PCR Negative (Negative); SARS-CoV-2 RNA PCR Negative (Negative)
[2024-02-04 10:39] VITALS: RESP 16
== END 2024-02-04 10:40 | disposition home or self-care (01) ==
PROVIDERS: Emergency Provider Student in an Organized Health Care Education/Training Program; PCP Family Medicine
DX: K13.79 Other lesions of oral mucosa (principal); Z20.822 Contact with and (suspected) exposure to COVID-19; E11.9 Type 2 diabetes mellitus without complications; M10.9 Gout, unspecified; I10 Essential (primary) hypertension; D50.9 Iron deficiency anemia, unspecified; E78.49 Other hyperlipidemia; F41.9 Anxiety disorder, unspecified; F32.A Depression, unspecified; Z98.49 Cataract extraction status, unspecified eye
CPT/HCPCS: 87637; 87651; 99283; A9270; J1100

== ENCOUNTER 2024-05-15 22:29 | Emergency (ER) | payer OTHER, SELFPAY ==
[2024-05-15] VITALS (7 sets, daily range): BP systolic 143–174; BP diastolic 89–94; PULSE 80–85; RESP 14–18; TEMP 37; O2SAT 94–97
--- NOTE | ~2024-05-15 | CT_ITS ---
EXAMINATION: CT abdomen pelvis w con DATE: 05/16/2024 00:51 INDICATION: Right upper quadrant and epigastric abdominal pain. TECHNIQUE: Computed tomography (CT) of the abdomen and pelvis was performed with 100 mL Omnipaque 350 intravenous contrast. Automated exposure control and iterative reconstruction technique were employe d. The dose-length product was 1212.65 mGy-cm. COMPARISON: CT abdomen pelvis 12/25/2019 FINDINGS: The visualized portions of the lung bases demonstrate mild atelectasis. No pleural effusion . The heart size is normal. There are coronary artery calcifications. No pericardial effusion. There is mild intrahepatic biliary duct dilatation. The common duct is dilated to 13 mm. The gallbladder is normal in size. Calcifications in the spleen are consistent with old granulomatous disease. The panc reas and adrenal glands are normal. There are cysts in the kidneys measuring up to 7.0 cm on the left . There is cortical thinning in the kidneys. There is diverticulosis of the colon without evidence of diverticulitis. There are no dilated loops of bowel. The appendix is normal. There are no pathologic ally enlarged lymph nodes. There is no free intraperitoneal fluid. There is severe lumbar spondylosis and mild thoracic spondylosis. IMPRESSION: 1. Intrahepatic and extrahepatic biliary duct dilatation, worsened from 12/25/2019. Reviewed, dictated and finalized at location E. IMPRESSION: 1. Intrahepatic and extrahepatic biliary duct dilatation, worsened from 12/25/19 20.
--- NOTE | ~2024-05-15 | XR_ITS ---
XR chest 2V Ordering provider: Leodan Thibodeaux MD History: 63 years Male with . chest pain . Comparison: July 05, 2023 FINDINGS: MEDIASTINUM: The cardiac silhouette is not enlarged. LUNGS: No effusion or pneumothorax. Prominent markings in the lower lobes with minimal opacification suggestive of atelectasis versus pneumonia. OTHER: No free air under the diaphragm. ... Left shoulder arthroplasty. IMPRESSION: Bilateral basilar atelectasis versus pneumonia more on the left side. Reviewed, dictated and finalized at location A.
--- NOTE | 2024-05-15 22:30 | ECG_ITS ---
Test Date: 2024-05-15 22:37:03 Measurements Intervals [place] Rate: 79 P: 40 VT: 179 QRS: 42 QRSD: 89 T: 45 QT: 354 QTc: 408 Interpretive Statements SINUS RHYTHM No previous ECG available for comparison Electronically Signed On 05-17-2024 12:52:03 CDT by Dony Dutton M.D.
[2024-05-15 22:49] LABS: Basophils Percent Auto 0.6 % (0.2-1.2); Eosinophils Absolute Auto 0.1 K/mm3 (0-0.3); Hemoglobin 13.8 g/dL (14.0-18.0); Immature Granulocyte Absolute 0.05 K/mm3 (0.00-0.031); Immature Granulocyte Percent A 0.7 % (0-0.5); Lymphocytes Absolute Auto 1.78 K/mm3 (0.9-3.2); Lymphocytes Percent Auto 25.3 % (18.3-44.2); Mean Corpuscular HGB Conc 33.7 g/dl (32-36); Mean Corpuscular Hemoglobin 30.4 pg (26-34); Mean Corpuscular Volume 90.3 fl (80-100); Mean Platelet Volume 9.4 fl (7.4-10.4); Monocytes Absolute Auto 0.6 K/mm3 (0.1-0.6); Monocytes Percent Auto 8.7 % (2.6-8.5); Neutrophils Absolute Auto 4.4 K/mm3 (1.3-6.7); Neutrophils Percent Auto 62.7 % (45.5-73.1); Platelet Count Result 192 k/mm3 (150-375); Red Blood Count 4.54 M/mm3 (4.6-6.20)
--- NOTE | 2024-05-15 22:59 | PC.NURSE ---
pt told pt to take aspirin cryptanalyst
[2024-05-15 23:00] LABS: Prothrombin Time 13.3 Seconds (11.1-14.7)
[2024-05-15] MEDS: ASPIRIN 81 MG CHEWABLE TABLET 324 MG PO (23:00)
[2024-05-15 23:01] LABS: Partial Thromboplastin Time 35.6 Seconds (22.3-36.8)
[2024-05-15 23:06] LABS: Alanine Aminotransferase 85 U/L (6-50); Alkaline Phosphatase 100 U/L (38-126); Anion Gap 11 mmol/L (4-12); Aspartate Amino Transferase 161 U/L (17-59); Bilirubin,Total 1.3 mg/dL (0.2-1.3); Blood Urea Nitrogen 32 mg/dL (9-20); Calcium 9.5 mg/dL (8.4-10.2); Carbon Dioxide 29 mmol/L (22-30); Chloride 101 mmol/L (98-107); Estimated CRCL calculation 72 ml/min; Estimated Glomerular Filt Rate > 60; Glucose 203 mg/dL (65-110); Lipase 239 U/L (23-300); Potassium 3.9 mmol/L (3.4-5.0); Sodium 141 mmol/L (137-145)
[2024-05-15 23:18] LABS: Troponin I < 0.012 ng/mL (0.000-0.034)
[2024-05-16] VITALS (9 sets, daily range): BP systolic 136–149; BP diastolic 80–88; PULSE 68–82; RESP 11–18; O2SAT 96–98
--- NOTE | 2024-05-16 00:28 | PC.NURSE ---
pt still in ct at this time, unable to medicate.
[2024-05-16] MEDS: SODIUM CHLORIDE 0.9% IV 1,000 ML 999 ML IV CONT (00:42)
[2024-05-16] MEDS: FAMOTIDINE 20 MG/2 ML VIAL IV PUSH (00:43)
--- NOTE | 2024-05-16 00:47 | PC.NURSE ---
Pt refused medication and reports i cant take anything that is available over the counter or my insurance will not pay for it. I just got a bill from when i was here for an allergic reaction for the benadryl and something else that i was given here because the insurance company said i couldve just taken it over the counter.
[2024-05-16 01:02] LABS: Ethanol < 10 mg/dL (<10)
[2024-05-16 01:18] LABS: Amphetamine Screen Urine Negative (Negative); Barbiturate Screen Urine Negative (Negative); Benzodiazepines Screen Urine Negative (Negative); Cannabinoid Screen Urine Positive (Negative); Cocaine Screen Urine Negative (Negative); Methadone Screen Urine Negative (Negative); Opiate Screen Urine Positive (Negative); Phencyclidine Screen Urine Negative (Negative)
--- NOTE | 2024-05-16 01:27 | ED.GENADULT ---
HPI - General Adult General Chief complaint: Chest Pain Stated complaint: chest pain Time Seen by Provider: 05/15/24 23:24 History of Present Illness HPI narrative: This is a 63-year-old male presenting with chief complaint of chest pain. Patient says that this chest but really appears to be epigastric area. He describes it as an achy pain it started after eating 3 chili cheese dogs. It is nonradiating you out 10 intensity and improving. He says he has never experienced pain like this before. No exacerbating alleviating factors. Associated with nausea and down diaphoresis. No vomiting exertional component shortness of breath or radiation. Patient says he has been having significant heartburn or last week. Related Data Allergies Allergy/AdvReac Type Severity Reaction Status Date / Time naproxen Allergy Unknown Rash Verified 05/15/24 22:39 codeine AdvReac Unknown Nausea Verified 05/15/24 22:39 [facility] Past Medical History Medical History ADAM (acute kidney injury) Anxiety disorder, unspecified Arthritis of shoulder region, left BMI 33.0-33.9,adult BMI 34.0-34.9,adult BPH (benign prostatic hyperplasia) Claustrophobia Contusion of right elbow Depression Diabetes Diverticulitis Essential (primary) hypertension Gout, unspecified Iron deficiency anemia Other hyperlipidemia Right rotator cuff tendinitis Traumatic rupture of right proximal biceps tendon Type 2 diabetes mellitus without complications Surgical History Surgical History H/O colonoscopy with polypectomy History of cataract surgery History of removal of pigmented skin lesion BCC Hx of shoulder surgery Family History Family History Mother Hypertension Family history of Alzheimer's disease Diverticulitis Father Family history of heart disease in male family member before age 55 Acute myocardial infarction Sibling Hypertension Diverticulitis Other Cerebrovascular accident Diabetes mellitus Family history of gout Family history of malignant neoplasm Social History Social History Social History: He lives with his significant other standing. 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 He is lifelong nonsmoker. He does not use any alcohol marijuana or illicit drugs. Code status full code Smoking status: Never smoker Second hand tobacco smoke exposure: Yes Alcohol intake: former Substance use: never Substance use type: does not use Do You Feel Safe in your Home?: Yes Lack of Transportation: No Lack of Food: Never True Current Housing: I Have Housing Concerned About Future Housing: No Difficulty Paying Gas/Electric Bills: No Difficulty Paying for Meds: No Currently Unemployed: No Education: Trade/Vocational Certificate Difficulty w/ Childcare or Family Care: No Living arrangements: with family Additional living arrangements comments: Fiancee Occupation/Education: retired Additional occupation/education comments: [employer] contractor. Gender identity (if verbalized by the patient): Male Spiritual care concerns: No Exam Narrative: APPEARANCE: No apparent distress. Head: atraumatic. EYES: EOMI, NOSE: Atraumatic NECK: Trachea midline RESPIRATORY: No increased rate of breathingClear to auscultation CARDIOVASCULAR: RRR, no peripheral edema ABDOMINAL: soft, tenderness across the epigastric area, no guarding rebound MUSCULOSKELETAl: No obvious deformities NEURO: Alert. Moving 4/4 extremities SKIN:: Warm, dry. Normal color PSYCHIATRIC: Normal affect Course Vital Signs Vital signs: Vital Signs Temperature 98.6 F 05/15/24 22:34 Pulse Rate 81 05/15/24 22:34 Respiratory Rate 14 05/15/24 22:34 Blood
[2024-05-16 01:43] LABS: Troponin I < 0.012 ng/mL (0.000-0.034)
--- NOTE | 2024-05-16 01:49 | PC.NURSE ---
Patient refused 3 hour EKG
== END 2024-05-16 02:46 | disposition home or self-care (01) ==
PROVIDERS: Emergency Provider Emergency Medicine; PCP Family Medicine
DX: K30 Functional dyspepsia (principal); I10 Essential (primary) hypertension; E11.9 Type 2 diabetes mellitus without complications; E78.49 Other hyperlipidemia; D50.9 Iron deficiency anemia, unspecified; M10.9 Gout, unspecified; F41.9 Anxiety disorder, unspecified; F32.A Depression, unspecified; Z86.010 Personal history of colon polyps; Z98.49 Cataract extraction status, unspecified eye; Z79.899 Other long term (current) drug therapy
CPT/HCPCS: 36415; 71046; 74177; 80053; 80307; 83690; 84484; 85025; 85610; 85730; 93005; 96361; 96374; 99284; A9270; J7030; Q9967

== ENCOUNTER 2024-05-27 10:06 | Outpatient (CLI) | payer OTHER, SELFPAY ==
[2024-05-27 10:41] LABS: Hematocrit 40.7 % (42.0-52.0); Hemoglobin 13.6 g/dL (14.0-18.0); Mean Corpuscular HGB Conc 33.4 g/dl (32-36); Mean Corpuscular Hemoglobin 30.4 pg (26-34); Mean Corpuscular Volume 91.1 fl (80-100); Mean Platelet Volume 9.1 fl (7.4-10.4); Platelet Count Result 218 k/mm3 (150-375); Red Blood Count 4.47 M/mm3 (4.6-6.20); Red Cell Distribution Width 12.9 % (11.5-14.5); White Blood Count 7.2 K/mm3 (4.5-10.0)
[2024-05-27 10:47] LABS: Hemoglobin A1C 6.8 % (<5.7)
[2024-05-27 10:51] LABS: Alanine Aminotransferase 340 U/L (6-50); Albumin Level 4.9 g/dL (3.5-5.1); Alkaline Phosphatase 168 U/L (38-126); Anion Gap 13 mmol/L (4-12); Aspartate Amino Transferase 200 U/L (17-59); Bilirubin,Total 1.1 mg/dL (0.2-1.3); Blood Urea Nitrogen 29 mg/dL (9-20); Calcium 9.4 mg/dL (8.4-10.2); Carbon Dioxide 22 mmol/L (22-30); Chloride 101 mmol/L (98-107); Estimated Glomerular Filt Rate 55; Glucose 270 mg/dL (65-110); Potassium 4.3 mmol/L (3.4-5.0); Sodium 136 mmol/L (137-145)
[2024-05-27 11:20] LABS: Prostate Specific Antigen 1.8 ng/mL (< OR = 4.0)
== END 2024-05-27 10:07 | disposition home or self-care (01) ==
LOC: ANHLAB 10:07
PROVIDERS: PCP Family Medicine; Visit Provider Nurse Practitioner Family
DX: R79.89 Other specified abnormal findings of blood chemistry (principal); Z12.5 Encounter for screening for malignant neoplasm of prostate; E55.9 Vitamin D deficiency, unspecified; E11.9 Type 2 diabetes mellitus without complications; E78.49 Other hyperlipidemia; I10 Essential (primary) hypertension
CPT/HCPCS: 36415; 80053; 83036; 84153; 84443; 85027; G0103

== ENCOUNTER 2024-06-03 12:21 | Outpatient (CLI) | payer OTHER, SELFPAY ==
[2024-06-03 13:00] LABS: Alanine Aminotransferase 250 U/L (6-50); Alkaline Phosphatase 128 U/L (38-126); Aspartate Amino Transferase 129 U/L (17-59); Bilirubin,Total 1.1 mg/dL (0.2-1.3)
[2024-06-03 13:13] LABS: Iron 78 ug/dL (49-181)
[2024-06-03 13:22] LABS: Percent Iron Saturation 22 % (20-50)
[2024-06-03 13:45] LABS: Hepatitis B Surface Antigen Negative (Negative)
[2024-06-03 13:50] LABS: HAV RESULT Negative (Negative); Hepatitis B Core IgM Result Negative (Negative)
[2024-06-03 14:02] LABS: Hepatitis C Virus Antibody Negative (Negative)
[2024-06-03 14:05] LABS: Folic Acid 8.8 ng/mL (2.76->20)
[2024-06-10 15:38] LABS: GGT 442 U/L
== END 2024-06-03 12:22 | disposition home or self-care (01) ==
LOC: ANHLAB 12:23
PROVIDERS: PCP Family Medicine; Visit Provider Nurse Practitioner Family
DX: D64.9 Anemia, unspecified (principal); R74.8 Abnormal levels of other serum enzymes; R10.2 Pelvic and perineal pain
CPT/HCPCS: 36415; 80074; 80076; 82607; 82746; 82977; 83540; 83550

== ENCOUNTER 2024-06-05 10:46 | Observation (INO) | payer OTHER, SELFPAY ==
--- NOTE | ~2024-06-05 | US_ITS ---
EXAMINATION: US abdomen limited DATE: 06/05/2024 11:57 INDICATION: Right upper quadrant abdominal pain and elevated liver enzymes. TECHNIQUE: Multiple grayscale and Doppler ultrasound images of the abdomen were obtained. COMPARISON: CT dated 05/16/2024 FINDINGS: The pancreatic head and body are normal in appearance. The pancreatic tail is not visualized. Visual ized portion of the proximal inferior vena cava and aorta are normal. Liver has normal echogenicity a nd contour, with a smooth surface. No liver lesion identified. No intrahepatic biliary duct dilation suspected. Portal venous flow was seen in the hepatopetal, normal direction and has normal Doppler wa veform. The gallbladder is normal in appearance. There is no cholelithiasis. The common bile duct me asures 5-6 mm, which is normal. Sonographic Santiago sign was reported as negative by the fast food shift lead. 5.1 cm anechoic cyst at the upper pole of the right kidney. IMPRESSION: 1. Resolution of prior intra and extrahepatic biliary ductal dilation. Gallbladder is normal with no evident cholelithiasis. 2. 5.1 cm right renal cyst. Reviewed, dictated and finalized at location B. IMPRESSION: 1. Resolution of prior intra and extrahepatic biliary ductal dilation. Gallblad josias is normal with no evident cholelithiasis. 2. 5.1 cm right renal cyst.
--- NOTE | ~2024-06-05 | CT_ITS ---
EXAMINATION: CT abdomen pelvis w con DATE: 06/05/2024 12:51 INDICATION: Abdominal pain, nausea and vomiting. Constipation. TECHNIQUE: Computed tomography (CT) of the abdomen and pelvis was performed with 100 mL Omnipaque-350 intravenous contrast. Automated exposure control and iterative reconstruction technique were employe d. The dose-length product was 1242.38 mGy-cm. COMPARISON: None FINDINGS: Mild dependent atelectasis in bilateral lower lobes. Heart size is normal. Atherosclerotic coronary a rtery calcific a gutierrez and aortic valve calcification. Unchanged mild central intrahepatic ductal or d uctal dilation. There is also no significant change in dilation the common bile duct which measures u p to 12 mm in maximal diameter. There is new moderate peripancreatic inflammatory stranding which ext ends into the left anterior pararenal space and caudally along the root of the mesentery consistent w ith acute interstitial pancreatitis. No loculated peripancreatic fluid collections. Pancreatic parenc hymal enhancement appears relatively homogeneous. A few splenic calcific a gutierrez consistent with old g ranulomatous disease. Bilateral adrenal glands are normal. There are bilateral renal cysts larger on the left measuring up to 8.5 cm. Nonobstructing bilateral nephrolithiasis with 2 mm stone at the uppe r pole the right kidney and a couple 1-2 mm stones in the upper pole the left kidney. There is modera te colonic diverticulosis with a transverse and descending colon predominance without adjacent inflam matory stranding to suggest diverticulitis. Small bowel and appendix are normal. Bladder is normal. N o abscess or free intraperitoneal gas or fluid. Severe spondylosis at the lumbosacral junction with m ild to moderate spondylosis in the more cephalad lumbar and lower thoracic spine. IMPRESSION: 1. Acute interstitial pancreatitis. 2. Stable appearance of chronic intra and extrahepatic biliary ductal dilation. Reviewed, dictated and finalized at location B.
[2024-06-05 10:47] VITALS: BP 172/104; PULSE 110; RESP 20; TEMP 36.4; O2SAT 98
--- NOTE | 2024-06-05 11:44 | PC.NURSE ---
US at bedside
--- NOTE | 2024-06-05 11:53 | ED.GENADULT ---
HPI - General Adult General Chief complaint: Abdominal Pain Stated complaint: multiple complaints Time Seen by Provider: 06/05/24 10:58 History of Present Illness HPI narrative: Patient is a 63-year-old gentleman who presents emergency department with chief complaint of abdominal pain. Patient reports he has pain in the upper abdomen reports that radiates to his back reports that he has a prior history of elevated liver enzymes patient reports he still has his gallbladder denies fever reports no diarrhea Related Data Allergies Allergy/AdvReac Type Severity Reaction Status Date / Time naproxen Allergy Unknown Rash Verified 05/25/24 08:27 codeine AdvReac Unknown Nausea Verified 05/25/24 08:27 Review of Systems Review of Systems: A 10 system review of systems was completed on the patient and is negative except for what is stated in the HPI. Nursing and ancillary documentation was reviewed. [facility] Past Medical History Medical History ADAM (acute kidney injury) Anxiety disorder, unspecified Arthritis of shoulder region, left BMI 33.0-33.9,adult BPH (benign prostatic hyperplasia) Claustrophobia Contusion of right elbow Depression Diabetes Diverticulitis Essential (primary) hypertension Gout, unspecified Iron deficiency anemia Other hyperlipidemia Right rotator cuff tendinitis Traumatic rupture of right proximal biceps tendon Type 2 diabetes mellitus without complications Surgical History Surgical History H/O colonoscopy with polypectomy History of cataract surgery History of removal of pigmented skin lesion BCC Hx of shoulder surgery Family History Family History Mother Hypertension Family history of Alzheimer's disease Diverticulitis Father Family history of heart disease in male family member before age 55 Acute myocardial infarction Sibling Hypertension Diverticulitis Other Cerebrovascular accident Diabetes mellitus Family history of gout Family history of malignant neoplasm Social History Social History Social History: He lives with his significant other standing. 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 He is lifelong nonsmoker. He does not use any alcohol marijuana or illicit drugs. Code status full code Smoking status: Never smoker Second hand tobacco smoke exposure: Yes Alcohol intake: former Substance use: never Substance use type: does not use Do You Feel Safe in your Home?: Yes Lack of Transportation: No Lack of Food: Never True Current Housing: I Have Housing Concerned About Future Housing: No Difficulty Paying Gas/Electric Bills: No Difficulty Paying for Meds: No Currently Unemployed: No Education: Trade/Vocational Certificate Difficulty w/ Childcare or Family Care: No Living arrangements: with family Additional living arrangements comments: Fiancee Occupation/Education: retired 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 Gender identity (if verbalized by the patient): Male Spiritual care concerns: No Exam Narrative: GENERAL: Well-appearing, well-nourished, and in no acute distress. HEAD: Normocephalic, atraumatic. EYES: PERRLA and EOMI. ENT: Nares clear, no rhinorrhea or epistaxis. Mucous membranes moist. NECK: Supple. CHEST: Clear to auscultation. No respiratory distress. HEART: Regular rate and rhythm. No murmur heard. Normal peripheral pulses. ABDOMEN: Soft, tenderness to palpation in the epigastric region, nondistended, normal active bowel sounds. EXTREMITIES: Normal range of motion. No edema. SKIN: Warm, dry, no rash. NEURO: No focal deficits. Alert and oriented x3. PSYCH: Normal mood and affect.
[2024-06-05] MEDS: SODIUM CHLORIDE 0.9% IV 1,000 ML 999 ML IV CONT (12:13)
[2024-06-05] MEDS: ONDANSETRON INJ 4 MG/2 ML VIAL IV PUSH (12:13)
[2024-06-05] MEDS: MORPHINE SULFATE (*CRX) 4 MG/ML INJ IV PUSH ×2 (12:13→13:58)
[2024-06-05 12:19] LABS: Basophils Percent Auto 0.2 % (0.2-1.2); Eosinophils Percent Auto 0.1 % (0-4.4); Hematocrit 42.2 % (42.0-52.0); Hemoglobin 14.8 g/dL (14.0-18.0); Immature Granulocyte Absolute 0.09 K/mm3 (0.00-0.031); Immature Granulocyte Percent A 0.7 % (0-0.5); Lymphocytes Absolute Auto 0.78 K/mm3 (0.9-3.2); Mean Corpuscular HGB Conc 35.1 g/dl (32-36); Mean Corpuscular Hemoglobin 30.5 pg (26-34); Mean Corpuscular Volume 86.8 fl (80-100); Mean Platelet Volume 9.4 fl (7.4-10.4); Monocytes Absolute Auto 0.9 K/mm3 (0.1-0.6); Monocytes Percent Auto 6.6 % (2.6-8.5); Neutrophils Absolute Auto 11.3 K/mm3 (1.3-6.7); Neutrophils Percent Auto 86.4 % (45.5-73.1); Platelet Count Result 257 k/mm3 (150-375); Red Blood Count 4.86 M/mm3 (4.6-6.20); Red Cell Distribution Width 12.6 % (11.5-14.5); White Blood Count 13.1 K/mm3 (4.5-10.0)
[2024-06-05 12:22] VITALS: BP 151/98; PULSE 92; RESP 18; O2SAT 97
--- NOTE | 2024-06-05 12:22 | PC.NURSE ---
Pt gone to the restroom here several times. when asked to provide urine sample by multiple ed staff, pt states he cannot pee I went too many times this morning . Pt educated on importance and time frame of the urine sample.
[2024-06-05 12:31] LABS: Albumin Level 5.4 g/dL (3.5-5.1); Alkaline Phosphatase 190 U/L (38-126); Anion Gap 16 mmol/L (4-12); Aspartate Amino Transferase 558 U/L (17-59); Bilirubin,Total 2.3 mg/dL (0.2-1.3); Blood Urea Nitrogen 26 mg/dL (9-20); Calcium 9.6 mg/dL (8.4-10.2); Carbon Dioxide 24 mmol/L (22-30); Chloride 98 mmol/L (98-107); Estimated CRCL calculation 71 ml/min; Estimated Glomerular Filt Rate > 60; Glucose 228 mg/dL (65-110); Lactic Acid Reflex 1.2 mmol/L (0.7-2.0); Potassium 3.9 mmol/L (3.4-5.0); Sodium 138 mmol/L (137-145)
[2024-06-05 12:59] LABS: Alanine Aminotransferase 780 U/L (6-50); Lipase 7658 U/L (23-300)
[2024-06-05 13:52] VITALS: BP 175/92; PULSE 98; RESP 20
[2024-06-05] MEDS: SODIUM CHLORIDE 0.9% IV 1,000 ML 125 ML IV CONT (13:58)
[2024-06-05 14:00] LABS: Appearance Urine Clear (Clear); Bacteria Urine None Seen /hpf; Bilirubin Urine Negative (Negative); Blood Urine Trace (Negative); Color Urine Yellow (Yellow); Glucose Urine UA 3+ mg/dL (Negative); Ketones Urine Trace mg/dL (Negative); Leukocyte Esterase Ur Negative LEU/UL (Negative); Need Manual Microscopic Reviewed; Nitrate Urine Negative (Negative); Non Pathogenic Casts 0-2; Protein Urine 1+ mg/dL (Negative); RBC Urine 0-2 /hpf (0-2); Specific Grav Ur > 1.045 (1.001-1.035); Squamous Epithelial Cell Urine None Seen /hpf (Few); Urobilinogen Urine 0.2 mg/dL (<2.0); WBC Urine 0-5 /hpf (0-3); pH Urine 5.5 (5.0-9.0)
[2024-06-05 14:01] LABS: Add Urine Microscopic? YES
--- NOTE | 2024-06-05 14:37 | PM.IMHP ---
H&P: HPI History of Present Illness Date/Time: 06/05/24 14:37 Chief Complaint: Nausea, Vomiting, Abdominal Pain Narrative: 63 y/o M presents here with nausea, vomiting, and abdominal known with PMH of anxiety, arthritis, BPH, depression, diabetes, diverticulitis, HTN, gout, MARIA ANTONIA, and HLD. The patient presents here from home for further evaluation nausea, vomiting, abdominal pain, and constipation. HPI obtained through chart review, patient elected to leave AMA prior to completion. Patient reported here from home for further evaluation of multiple medical complaints. Reported to farrowing manager that he had been experiencing nausea, vomiting, abdominal pain and cramping, constipation, and kidney pain. Patient also reported that his liver function was abnormal. The patient was seen by his PCP on 05/25/2024 for his Medicare wellness visit. Lab work from this visit showed no leukocytosis, hemoglobin 13.6, glucose 270, A1c 6.8, AST 200, ALT 340, alk-phos 168, and total bilirubin 1.1. Lab work was repeated on 06/03 which showed total bilirubin 1.1, AST 129, ALT 250, alk-phos 128. Initial VS at presentation: 97.6? F, HR 110, RR 20, 172/104, and 98% on RA. ED workup showed: WBC 13.1, hemoglobin 14.8, creatinine 1.1 and normal GFR, glucose 228, total bilirubin 2.3, AST 558, ALT 780, alk-phos 190, lipase 7658. UA showed 1+ protein, 3+ glucose, trace ketones. Abdominal ultrasound showed a dilated cystic duct, dilation of the common bile duct, and a 5.1 cm right renal cyst. CT of the abdomen/pelvis showed acute interstitial pancreatitis and stable appearance of chronic intra and extrahepatic biliary ductal dilation. Review of Systems Review of Systems: Unable to complete, elected to leave AMA. [facility] Past Medical History Medical History (Updated 06/05/24 @ 14:45 by Tahmina Avery APRN) ADAM (acute kidney injury) Anxiety disorder, unspecified Arthritis of shoulder region, left BPH (benign prostatic hyperplasia) Chronic kidney disease, unspecified Claustrophobia Depression Diabetes Diverticulitis Essential (primary) hypertension Gout, unspecified Iron deficiency anemia Low testosterone Other hyperlipidemia Right rotator cuff tendinitis Traumatic rupture of right proximal biceps tendon Type 2 diabetes mellitus without complications Vitamin B 12 deficiency Vitamin D deficiency Surgical History Surgical History H/O colonoscopy with polypectomy History of cataract surgery History of removal of pigmented skin lesion BCC Hx of shoulder surgery Family History Family History Mother Hypertension Family history of Alzheimer's disease Diverticulitis Father Family history of heart disease in male family member before age 55 Acute myocardial infarction Sibling Hypertension Diverticulitis Other Cerebrovascular accident Diabetes mellitus Family history of gout Family history of malignant neoplasm Social History Social History Social History: He lives with his significant other standing. 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 He is lifelong nonsmoker. He does not use any alcohol marijuana or illicit drugs. Code status full code Smoking status: Never smoker Second hand tobacco smoke exposure: Yes Alcohol intake: former Substance use: never Substance use type: opiates Do You Feel Safe in your Home?: Yes Lack of Transportation: No Lack of Food: Never True Current Housing: I Have Housing Concerned About Future Housing: No Difficulty Paying Gas/Electric Bills: No Difficulty Paying for Meds: No Currently Unemployed: No Education: Decline to Answer Difficulty w/ Childcare or Family Care: No Living arrangements: with family Additional living arran
--- NOTE | 2024-06-05 16:14 | PC.NURSE ---
RN was informed by junior legal secretary that pt wanted to leave AMA and nurse advised and educated pt on the risk of dc without being seen. Pt agreed to stay at this point.
[2024-06-05 16:15] VITALS: BP 167/90; PULSE 101; RESP 16; TEMP 36.7; O2SAT 96
[2024-06-05 16:25] VITALS: BMI 33.0
--- NOTE | 2024-06-05 16:31 | PC.NURSE ---
This patient, Leroy Ariza, was admitted to 3 Med Surg Room 332-01. Patient/family oriented to hospital policies and general routines including ID bracelet, bed and alarms, visiting hours, pain management, procedures, bathroom and other care routines, personal items, smoking policy, room service/diet, and visiting hours. Information on how to activate the Rapid Response Team has been discussed. Patient/Family are encouraged to report perceived risks to care and to ask questions if they do not understand what they are told or what they should do.
[2024-06-05 17:27] LABS: Glucose Point of Care 169 mg/dl (65-105)
[2024-06-05 17:30] VITALS: O2SAT 96
--- NOTE | 2024-06-05 19:15 | PC.NURSE ---
Pt called out for nurse because he states that he was ready to leave so nurse educated him again about leaving without being seen and pt stated I have been waiting all day and I am ready to go. RN obtain pt AMA form and pt signed and was educated and informed about risk again. Provider was also called and informed about the pt leaving.
== END 2024-06-05 18:56 | disposition left against medical advice (07) ==
LOC: ANHED 13:36 → ANH3MEDSUR 15:38
PROVIDERS: Admitting Provider Family Medicine; Emergency Provider Emergency Medicine; PCP Family Medicine; Visit Provider Family Medicine
DX: K85.90 Acute pancreatitis without necrosis or infection, unspecified (principal); R74.8 Abnormal levels of other serum enzymes; I10 Essential (primary) hypertension; E11.9 Type 2 diabetes mellitus without complications; D50.9 Iron deficiency anemia, unspecified; E78.49 Other hyperlipidemia; N40.0 Benign prostatic hyperplasia without lower urinary tract symptoms; F41.9 Anxiety disorder, unspecified; F32.A Depression, unspecified; M10.9 Gout, unspecified; Z79.84 Long term (current) use of oral hypoglycemic drugs
CPT/HCPCS: 36415; 74177; 76705; 80053; 81001; 82948; 83605; 83690; 85025; 96361; 96374; 96375; 96376; 99285; G0378; J2270; J2405; J7030; Q9967

== ENCOUNTER 2024-06-08 13:19 | Inpatient (IN) | payer OTHER, SELFPAY ==
[2024-06-08] VITALS (11 sets, daily range): BP systolic 141–159; BP diastolic 77–98; PULSE 99–118; RESP 16–27; TEMP 37.1–38.6; O2SAT 93–98
--- NOTE | ~2024-06-08 | CT_ITS ---
EXAMINATION: CT abdomen pelvis w con DATE: 06/08/2024 17:24 INDICATION: Abdominal pain. Pancreatitis. TECHNIQUE: Computed tomography (CT) of the abdomen and pelvis was performed with 100 mL Omnipaque 350 intravenous contrast. Automated exposure control and iterative reconstruction technique were employe d. The dose-length product was 1336.30 mGy-cm. COMPARISON: CT abdomen pelvis 06/05/2024, 05/16/2024, 12/25/2019 FINDINGS: The visualized portions of the lung bases demonstrate mild atelectasis. No pleural effusion . The heart size is normal. There are coronary artery calcifications. No pericardial effusion. There is mild intrahepatic biliary duct dilatation. The common duct is dilated to 13 mm. The gallbladder is normal. Calcifications in the spleen are consistent with old granulomatous disease. There is fat str anding around the pancreas, consistent with acute interstitial pancreatitis. The adrenal glands are n ormal. There are cysts in the kidneys measuring up to 6.9 cm on the left. There is diverticulosis of the colon without evidence of diverticulitis. The appendix is normal. There are no pathologically enl arged lymph nodes. There is no free intraperitoneal fluid. There is severe lower lumbar spondylosis. IMPRESSION: 1. Acute interstitial pancreatitis, stable from 06/05/2024. 2. Mild intrahepatic and extrahepatic biliary duct dilatation, stable from 05/16/2024 and worsened fro m 12/25/2019. Reviewed, dictated and finalized at location E. IMPRESSION: 1. Acute interstitial pancreatitis, stable from 06/05/2024. 2. Mild intrahepatic and extrahepatic biliary duct dilatation, stable from 05/16 and worsened from 12/25/2019.
--- NOTE | ~2024-06-08 | XR_ITS ---
EXAMINATION: XR ERCP DATE: 06/10/2024 12:46 INDICATION: Dilated common bile duct. TECHNIQUE: 11 spot fluoroscopic images of the right upper quadrant were obtained during endoscopic re trograde cholangiopancreatography (ERCP). Fluoroscopy exposure time was 90. COMPARISON: CT abdomen and pelvis 06/08/2024 FINDINGS: The endoscope is in the second portion of the duodenum. There is contrast opacification of the common duct. There is balloon sweeping of the common duct. IMPRESSION: 1. Balloon sweeping of the common duct. Please refer to the ERCP procedure note for additional detail s. Reviewed, dictated and finalized at location E. IMPRESSION: 1. Balloon sweeping of the common duct. Please refer to the ERCP procedure note for additional details.
--- NOTE | ~2024-06-08 | MR_ITS ---
EXAMINATION: MR MRCP wo/w con/w 3D wo ind DATE: 06/09/2024 17:45 INDICATION: Pancreatitis. Dilated common bile duct. TECHNIQUE: Magnetic resonance imaging (MRI) of the abdomen was performed without and with 20 mL Multi Jackelyn intravenous contrast. Sequences included coronal T2-weighted FS FSE, coronal T2-weighted FSE, a xial T1-weighted LAVA, coronal FS FIESTA, axial dual-echo T1-weighted SPGR, coronal lava-FLEX, sagitt al T2-weighted FSE, axial T2-weighted FSE, and axial DWI. Thick-slab T2-weighted FSE images were obta ined for magnetic resonance cholangiopancreatography (MRCP). Maximum intensity projection 3-D reconst ructions of the volumetric data were created by the technologist. Postcontrast sequences included cor onal LAVA-flex and time course of axial T1-weighted LAVA. COMPARISON: CT abdomen pelvis 06/08/2024 FINDINGS: ABDOMEN MRI: There is diffuse hepatic steatosis. There is mild intrahepatic biliary duct dilatation. The gallbladder is distended. There are sludge and small stones in the gallbladder. The spleen is nor mal. There is fat stranding around the pancreas. The adrenal glands are normal. There are cysts in th e kidneys measuring up to 7.2 cm on the left. There are no dilated loops of bowel. There is diverticu losis of the colon without evidence of diverticulitis. ABDOMEN MRCP: The common duct is dilated to 12 mm. There are sludge and small stones in the common du ct. IMPRESSION: 1. Acute interstitial pancreatitis. 2. Mild intrahepatic and extrahepatic biliary duct dilatation and gallbladder distention. Sludge and small stones in the common duct and gallbladder. Reviewed, dictated and finalized at location E. IMPRESSION: 1. Acute interstitial pancreatitis. 2. Mild intrahepatic and extrahepatic biliary duct dilatation and gallbladder d istention. Sludge and small stones in the common duct and gallbladder.
--- NOTE | ~2024-06-08 | XR_ITS ---
EXAMINATION: XR chest 1V portable DATE: 06/13/2024 09:01 INDICATION: Worsening leukocytosis TECHNIQUE: frontal view of the chest was obtained. COMPARISON: Chest radiograph dated 05/15/[address] dated 06/08/2024 FINDINGS: Persistent mild linear and streaky discoid atelectasis at the bilateral lower lobes as seen on the re cent prior CT. No other airspace opacities, pulmonary edema, pleural effusion or pneumothorax. The ca rdiomediastinal silhouette is normal. Reverse left total shoulder arthroplasty. IMPRESSION: 1. Persistent mild discoid atelectasis/scarring at the bilateral lower lobes. Reviewed, dictated and finalized at location A.
--- NOTE | ~2024-06-08 | XR_ITS ---
Supine and upright views of the abdomen Clinical history: Ileus Findings: Bowel gas pattern is nonspecific. No evidence for obstruction or free air. No abnormal mass lesion or calcification is seen. Osseous structures are intact. Impression: Nonspecific bowel gas pattern. Reviewed, dictated and finalized at [facility]. Impression: Nonspecific bowel gas pattern.
--- NOTE | 2024-06-08 13:25 | PC.NURSE ---
Patient drinking soda during triage. Patient asked to not eat or drink anything until seen and evaluated by EDP. Patient refusing to stop drinking.
--- NOTE | 2024-06-08 15:38 | ED.ABDPAIN ---
HPI - Abdominal Pain General Chief Complaint: Abdominal Pain Stated Complaint: pancreatitis Time Seen by Provider: 06/08/24 15:38 Source: patient and family Mode of arrival: ambulatory Limitations: no limitations History of Present Illness HPI narrative: 63 years old white male came to the ED by private car complaining of diffuse anterior abdominal pain started 5-6 days ago associated with nausea and vomiting, was hospitalized for acute pancreatitis 3 days ago, patient is telling me that he signed AMA because the did not give him his anxiety medication. Patient is telling me that he did not eat or drink over the last 6 days, no bowel movement since, his back because pain is still there Related Data Home Medications Medication Instructions Recorded Confirmed dapagliflozin propanediol 10 mg 10 mg PO BID 06/05/24 06/08/24 tablet (Farxiga) Allergies Allergy/AdvReac Type Severity Reaction Status Date / Time naproxen Allergy Unknown Rash Verified 06/08/24 16:03 codeine AdvReac Unknown Nausea Verified 06/08/24 16:03 Review of Systems Review of Systems: All systems reviewed & are unremarkable except as noted in HPI and below PMFSH Past Medical History Medical History ADAM (acute kidney injury) Anxiety disorder, unspecified Arthritis of shoulder region, left BPH (benign prostatic hyperplasia) Chronic kidney disease, unspecified Claustrophobia Depression Diabetes Diverticulitis Essential (primary) hypertension Gout, unspecified Iron deficiency anemia Low testosterone Other hyperlipidemia Right rotator cuff tendinitis Traumatic rupture of right proximal biceps tendon Type 2 diabetes mellitus without complications Vitamin B 12 deficiency Vitamin D deficiency Surgical History Surgical History H/O colonoscopy with polypectomy History of cataract surgery History of removal of pigmented skin lesion BCC Hx of shoulder surgery Family History Family History Mother Hypertension Family history of Alzheimer's disease Diverticulitis Father Family history of heart disease in male family member before age 55 Acute myocardial infarction Sibling Hypertension Diverticulitis Other Cerebrovascular accident Diabetes mellitus Family history of gout Family history of malignant neoplasm Social History Social History Social History: He lives with his significant other standing. 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 He is lifelong nonsmoker. He does not use any alcohol marijuana or illicit drugs. Code status full code Smoking status: Never smoker Second hand tobacco smoke exposure: Yes Alcohol intake: former Substance use: never Substance use type: opiates Do You Feel Safe in your Home?: Yes Lack of Transportation: No Lack of Food: Never True Current Housing: I Have Housing Concerned About Future Housing: No Difficulty Paying Gas/Electric Bills: No Difficulty Paying for Meds: No Currently Unemployed: No Education: Decline to Answer Difficulty w/ Childcare or Family Care: No Living arrangements: with family Additional living arrangements comments: Fiancee Occupation/Education: retired Additional occupation/education comments: [employer] contractor. Gender identity (if verbalized by the patient): Male Spiritual care concerns: No Exam Narrative: General appearance: Well-developed, well-nourished Skin: Normal color Head: Normocephalic, nontraumatic Eyes: Clear conjunctiva ENT: Oropharynx normal, ears normal, nose normal Neck: Supple, nontender Chest and respiratory: Airway patent, no respiratory distress, no accessory muscle use Heart: Regular rate/rhythm Abdomen: Soft, diffuse tenderness mainly epig
[2024-06-08] MEDS: SODIUM CHLORIDE 0.9% IV 2,000 ML 999 ML IV CONT (16:04)
[2024-06-08] MEDS: ONDANSETRON INJ 4 MG/2 ML VIAL IV PUSH (16:05)
[2024-06-08] MEDS: HYDROmorphone HCL INJ (*CRX) 1 MG/ML SYR 0.5 MG IV PUSH ×2 (16:08→19:41)
[2024-06-08 16:17] LABS: Basophils Absolute Auto 0.1 K/mm3 (0.0-0.1); Basophils Percent Auto 0.4 % (0.2-1.2); Eosinophils Absolute Auto 0.1 K/mm3 (0-0.3); Eosinophils Percent Auto 0.8 % (0-4.4); Hematocrit 36.5 % (42.0-52.0); Hemoglobin 12.2 g/dL (14.0-18.0); Immature Granulocyte Absolute 0.08 K/mm3 (0.00-0.031); Immature Granulocyte Percent A 0.6 % (0-0.5); Lymphocytes Absolute Auto 1.22 K/mm3 (0.9-3.2); Lymphocytes Percent Auto 8.7 % (18.3-44.2); Mean Corpuscular HGB Conc 33.4 g/dl (32-36); Mean Corpuscular Hemoglobin 30.6 pg (26-34); Mean Corpuscular Volume 91.5 fl (80-100); Mean Platelet Volume 9.4 fl (7.4-10.4); Monocytes Absolute Auto 1.2 K/mm3 (0.1-0.6); Monocytes Percent Auto 8.5 % (2.6-8.5); Neutrophils Absolute Auto 11.3 K/mm3 (1.3-6.7); Platelet Count Result 232 k/mm3 (150-375); Red Blood Count 3.99 M/mm3 (4.6-6.20); Red Cell Distribution Width 12.9 % (11.5-14.5)
[2024-06-08 16:32] LABS: Alanine Aminotransferase 166 U/L (6-50); Albumin Level 4.4 g/dL (3.5-5.1); Alkaline Phosphatase 145 U/L (38-126); Anion Gap 16 mmol/L (4-12); Aspartate Amino Transferase 37 U/L (17-59); Bilirubin,Total 1.5 mg/dL (0.2-1.3); Blood Urea Nitrogen 20 mg/dL (9-20); Carbon Dioxide 22 mmol/L (22-30); Chloride 93 mmol/L (98-107); Estimated CRCL calculation 87 ml/min; Estimated Glomerular Filt Rate > 60; Glucose 141 mg/dL (65-110); Lipase 173 U/L (23-300); Potassium 3.9 mmol/L (3.4-5.0); Sodium 131 mmol/L (137-145)
[2024-06-08 18:00] LABS: Appearance Urine Clear (Clear); Bacteria Urine None Seen /hpf; Bilirubin Urine Negative (Negative); Blood Urine Trace (Negative); Color Urine Yellow (Yellow); Glucose Urine UA 3+ mg/dL (Negative); Ketones Urine 2+ mg/dL (Negative); Leukocyte Esterase Ur Negative LEU/UL (Negative); Nitrate Urine Negative (Negative); Non Pathogenic Casts 0-2; Protein Urine 2+ mg/dL (Negative); RBC Urine 0-2 /hpf (0-2); Specific Grav Ur 1.021 (1.001-1.035); Squamous Epithelial Cell Urine None Seen /hpf (Few); Urobilinogen Urine 0.2 mg/dL (<2.0); WBC Urine 0-5 /hpf (0-3)
[2024-06-08 18:04] LABS: Add Urine Microscopic? YES
--- NOTE | 2024-06-08 19:24 | ADMGEN ---
This patient, Leroy Ariza, was admitted to 3 Med Surg Room 301-01. Patient/family oriented to hospital policies and general routines including ID bracelet, bed and alarms, visiting hours, pain management, procedures, bathroom and other care routines, personal items, smoking policy, room service/diet, and visiting hours. Information on how to activate the Rapid Response Team has been discussed. Patient/Family are encouraged to report perceived risks to care and to ask questions if they do not understand what they are told or what they should do.
[2024-06-08] MEDS: SODIUM CHLORIDE 0.9% IV 1,000 ML 125 ML IV CONT (19:41)
[2024-06-08] MEDS: HYDROcodone/acetaminophen (*CRX) 5-325 MG TABLET 1 TAB PO (22:27)
[2024-06-08] MEDS: clonazePAM (*CRX) 0.5 MG TABLET PO (22:27)
--- NOTE | 2024-06-08 23:13 | PM.IMHP ---
H&P: HPI History of Present Illness Date/Time: 06/08/24 23:13 Chief Complaint: Abdominal pains Narrative: 63 y/o M presents here with nausea, vomiting, and abdominal known with PMH of anxiety, arthritis, BPH, depression, diabetes, diverticulitis, HTN, gout, MARIA ANTONIA, and HLD. Pt recently left AMA on 06/05/24 because he was not given his anxiety medications. Pt returned today with severe abdominal pains 09/10. associated with nausea and vomiting pt has not been able to eat much these past few days and has not had a bowel movement for 3-4 days. The patient was seen by his PCP on 05/25/2024 for his Medicare wellness visit. Lab work from this visit showed no leukocytosis, hemoglobin 13.6, glucose 270, A1c 6.8, AST 200, ALT 340, alk-phos 168, and total bilirubin 1.1. Lab work was repeated on 06/03 which showed total bilirubin 1.1, AST 129, ALT 250, alk-phos 128. today his labs show sodium 131, edgar 1.5, alt 166, alk phos 145, [place] [id number], hb 12 hbaic is 6.8, urine is positive for glucose and ketones and protein US GB shows - . Resolution of prior intra and extrahepatic biliary ductal dilation. Gallbladder is normal with no evident cholelithiasis. 2. 5.[address] cm right renal cyst. CT abdo shows - 1. Acute interstitial pancreatitis, stable from 06/05/2024. 2. Mild intrahepatic and extrahepatic biliary duct dilatation, stable from 05/16/2024 and worsened from 12/25/2019 Pt denies alcholol mentions itchy rash on his arms and legs and abdomen Pt has a known history of DM and takes farxiga Review of Systems Review of Systems: Severe Epigastric abdominal pain, constipation, loss of appetite and nausea Rash on arms and legs and abdomen All other 12 systems are reviwed and negative apart from pertinent complaints above PMFSH Past Medical History Medical History ADAM (acute kidney injury) Anxiety disorder, unspecified Arthritis of shoulder region, left BPH (benign prostatic hyperplasia) Chronic kidney disease, unspecified Claustrophobia Depression Diabetes Diverticulitis Essential (primary) hypertension Gout, unspecified Iron deficiency anemia Low testosterone Other hyperlipidemia Right rotator cuff tendinitis Traumatic rupture of right proximal biceps tendon Type 2 diabetes mellitus without complications Vitamin B 12 deficiency Vitamin D deficiency Surgical History Surgical History H/O colonoscopy with polypectomy History of cataract surgery History of removal of pigmented skin lesion BCC Hx of shoulder surgery Family History Family History Mother Hypertension Family history of Alzheimer's disease Diverticulitis Father Family history of heart disease in male family member before age 55 Acute myocardial infarction Sibling Hypertension Diverticulitis Other Cerebrovascular accident Diabetes mellitus Family history of gout Family history of malignant neoplasm Social History Social History Social History: He lives with his significant other standing. 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 He is lifelong nonsmoker. He does not use any alcohol marijuana or illicit drugs. Code status full code Smoking status: Never smoker Second hand tobacco smoke exposure: Yes Alcohol intake: former Substance use: never Substance use type: opiates Do You Feel Safe in your Home?: Yes Lack of Transportation: No Lack of Food: Never True Current Housing: I Have Housing Concerned About Future Housing: No Difficulty Paying Gas/Electric Bills: No Difficulty Paying for Meds: No Currently Unemployed: No Education: High School Diploma/GED Difficulty w/ Childcare or Family Care: No Living arrangements: with family
[2024-06-09] MEDS: HYDROmorphone HCL INJ (*CRX) 1 MG/ML SYR 0.5 MG IV PUSH (03:13)
[2024-06-09] MEDS: ONDANSETRON INJ 4 MG/2 ML VIAL IV PUSH ×2 (03:17→23:13)
[2024-06-09] MEDS: SODIUM CHLORIDE 0.9% IV 1,000 ML 125 ML IV CONT ×2 (03:18→10:19)
[2024-06-09] MEDS: HYDROcodone/acetaminophen (*CRX) 5-325 MG TABLET 1 TAB PO ×3 (04:42→18:29)
[2024-06-09] MEDS: MORPHINE SULFATE (*CRX) 2 MG/ML INJ IV PUSH ×3 (04:43→18:13)
[2024-06-09 05:46] LABS: Basophils Absolute Auto 0.1 K/mm3 (0.0-0.1); Basophils Percent Auto 0.4 % (0.2-1.2); Eosinophils Absolute Auto 0.1 K/mm3 (0-0.3); Eosinophils Percent Auto 0.7 % (0-4.4); Hematocrit 35.8 % (42.0-52.0); Hemoglobin 11.4 g/dL (14.0-18.0); Immature Granulocyte Absolute 0.09 K/mm3 (0.00-0.031); Immature Granulocyte Percent A 0.6 % (0-0.5); Lymphocytes Absolute Auto 1.42 K/mm3 (0.9-3.2); Lymphocytes Percent Auto 10.2 % (18.3-44.2); Mean Corpuscular HGB Conc 31.8 g/dl (32-36); Mean Corpuscular Volume 94.2 fl (80-100); Mean Platelet Volume 9.3 fl (7.4-10.4); Monocytes Absolute Auto 1.3 K/mm3 (0.1-0.6); Monocytes Percent Auto 9.2 % (2.6-8.5); Neutrophils Percent Auto 78.9 % (45.5-73.1); Platelet Count Result 219 k/mm3 (150-375); Red Cell Distribution Width 12.7 % (11.5-14.5)
[2024-06-09 06:00] LABS: Alanine Aminotransferase 116 U/L (6-50); Albumin Level 3.9 g/dL (3.5-5.1); Alkaline Phosphatase 143 U/L (38-126); Anion Gap 17 mmol/L (4-12); Aspartate Amino Transferase 26 U/L (17-59); Bilirubin,Total 1.3 mg/dL (0.2-1.3); Blood Urea Nitrogen 16 mg/dL (9-20); Calcium 8.5 mg/dL (8.4-10.2); Carbon Dioxide 20 mmol/L (22-30); Chloride 98 mmol/L (98-107); Estimated CRCL calculation 87 ml/min; Estimated Glomerular Filt Rate > 60; Glucose 110 mg/dL (65-110); Potassium 3.7 mmol/L (3.4-5.0); Sodium 135 mmol/L (137-145)
[2024-06-09 07:50] LABS: Glucose Point of Care 113 mg/dl (65-105)
--- NOTE | 2024-06-09 08:03 | P.PNIM_ITS ---
Progress Note: A&P Assessment and Plan (1) Acute pancreatitis: Code(s): K85.90 - Acute pancreatitis without necrosis or infection, unspecified Status: Acute (2) Type 2 diabetes mellitus without complications: Qualifiers: Diabetes mellitus correction insulin use: without petroleum terminal plant operator use Qualified Code(s): E11.9 - Type 2 diabetes mellitus without complications Code(s): E11.9 - Type 2 diabetes mellitus without complications Status: Acute (3) Essential (primary) hypertension: Code(s): I10 - Essential (primary) hypertension Status: Acute (4) Constipation: Code(s): K59.00 - Constipation, unspecified Status: Acute (5) Elevated liver enzymes: Code(s): R74.8 - Abnormal levels of other serum enzymes Status: Acute (6) Rash: Code(s): R21 - Rash and other nonspecific skin eruption Status: Acute (7) Dilation of biliary tract: Code(s): K83.8 - Other specified diseases of biliary tract Status: Acute Plan Pancreatitis * elevated Lipase POA * IV fluids * pain control * NPO advance when tolerated * PPI * Leukocytosis coverage with IV Zosyn * Lipase daily * Farxiga D/C Biliary dilation/elevated LFTS * Surgery/GI consulted * USGB ordered showing Mild intrahepatic and extrahepatic biliary duct dilatation, stable from 05/16/2024 and worsened from 12/25/2019 * WBC 14 * Fever 101.3 * Zosyn IV * LFTS down trending * MRCP/ERCP??? Constipation * Chronic narcotic use * IV fluids * Stool softener * Lactulose Q6hr until BM * KUB no ileus * Encourage ambulation Diabetes * Accu-Cheks a.c. HS * sliding scale insulin * D/C Farxiga due to acute pancreatitis * resume patient's home long-acting * Hemoglobin A1c goal less than 7 pending * lipid panel pending * Diabetic diet * Optimize Robe inhibitors and statins. * Watch for hypoglycemia/hypoglycemic protocol ordered Hypertension * mildly hypertensive * resume home medications * BP per unit protocol Rash * itchy rash on arms and legs and abdomen * denies bites or cuts * ? dermatitis ? cellulitis add oral doxycycline * Doxycycline p.o. was initiated HX BPH: resumed flomax HX Anxiety: Resumed home medication clonazepam/Lexapro HX chronic narcotic use Code status: Full code per patient DVT prophylaxis: Lovenox Stress ulcer prophylaxis: Pepcid PT/OT notes: ambulatory Disposition: Patient was admitted for acute pancreatitis biliary dilation and constipation patient disease surgery and GI possible ERCP/MRCP will continue with NPO status and IV fluids with pain control pending recommendation. Patient is ambulatory and likely discharge back to home when medically stable. Time Spent With Patient Time with patient: 15 - 25 minutes Subjective Date/time seen: 06/09/24 08:03 Interval history: Admission: Medical Record Chief Complaint: Abdominal pains Narrative: 63 y/o M presents here with nausea, vomiting, and abdominal known with PMH of anxiety, arthritis, BPH, depression, diabetes, diverticulitis, HTN, gout, MARIA ANTONIA, and HLD. Pt recently left AMA on 06/05/24 because he was not given his anxiety medications. Pt returned today with severe abdominal pains 10/10. associated with nausea and vomiting pt has not been able to eat much these past few days and has not had a bowel movement for 3-4 days. The patient was seen by his PC
--- NOTE | 2024-06-09 08:03 | PM.IMPN ---
Progress Note: A&P Assessment and Plan (1) Acute pancreatitis: Code(s): K85.90 - Acute pancreatitis without necrosis or infection, unspecified Status: Acute (2) Type 2 diabetes mellitus without complications: Qualifiers: Diabetes mellitus adjunct faculty for medical terminology insulin use: without adjunct faculty for medical terminology use Qualified Code(s): E11.9 - Type 2 diabetes mellitus without complications Code(s): E11.9 - Type 2 diabetes mellitus without complications Status: Acute (3) Essential (primary) hypertension: Code(s): I10 - Essential (primary) hypertension Status: Acute (4) Constipation: Code(s): K59.00 - Constipation, unspecified Status: Acute (5) Elevated liver enzymes: Code(s): R74.8 - Abnormal levels of other serum enzymes Status: Acute (6) Rash: Code(s): R21 - Rash and other nonspecific skin eruption Status: Acute (7) Dilation of biliary tract: Code(s): K83.8 - Other specified diseases of biliary tract Status: Acute Plan Pancreatitis elevated Lipase POA IV fluids pain control NPO advance when tolerated PPI Leukocytosis coverage with IV Zosyn Lipase daily Farxiga D/C Biliary dilation/elevated LFTS Surgery/GI consulted USGB ordered showing Mild intrahepatic and extrahepatic biliary duct dilatation, stable from 05/16/2024 and worsened from 12/25/2019 WBC 14 Fever 101.3 Zosyn IV LFTS down trending MRCP/ERCP??? Constipation Chronic narcotic use IV fluids Stool softener Lactulose Q6hr until BM KUB no ileus Encourage ambulation Diabetes Accu-Cheks a.c. HS sliding scale insulin D/C Farxiga due to acute pancreatitis resume patient's home long-acting Hemoglobin A1c goal less than 7 pending lipid panel pending Diabetic diet Optimize Robe inhibitors and statins. Watch for hypoglycemia/hypoglycemic protocol ordered Hypertension mildly hypertensive resume home medications BP per unit protocol Rash itchy rash on arms and legs and abdomen denies bites or cuts ? dermatitis ? cellulitis add oral doxycycline Doxycycline p.o. was initiated HX BPH: resumed flomax HX Anxiety: Resumed home medication clonazepam/Lexapro HX chronic narcotic use Code status: Full code per patient DVT prophylaxis: Lovenox Stress ulcer prophylaxis: Pepcid PT/OT notes: ambulatory Disposition: Patient was admitted for acute pancreatitis biliary dilation and constipation patient disease surgery and GI possible ERCP/MRCP will continue with NPO status and IV fluids with pain control pending recommendation. Patient is ambulatory and likely discharge back to home when medically stable. Time Spent With Patient Time with patient: 15 - 25 minutes Subjective Date/time seen: 06/09/24 08:03 Interval history: Admission: Medical Record Chief Complaint: Abdominal pains Narrative: 63 y/o M presents here with nausea, vomiting, and abdominal known with PMH of anxiety, arthritis, BPH, depression, diabetes, diverticulitis, HTN, gout, MARIA ANTONIA, and HLD. Pt recently left AMA on 06/05/24 because he was not given his anxiety medications. Pt returned today with severe abdominal pains 10/10. associated with nausea and vomiting pt has not been able to eat much these past few days and has not had a bowel movement for 3-4 days. The patient was seen by his PCP on 05/25/2024 for his Medicare wellness visit. Lab work from this visit showed no leukocytosis, hemoglobin 13.6, glucose 270, A1c 6.8, AST 200, ALT 340, alk-phos 168, and total bilirubin 1.1. Lab work was repeated on 06/03 which showed total bilirubin 1.1, AST 129, ALT 250, alk-phos 128. today his labs show sodium 131, edgar 1.5, alt 166, alk phos 145, [place] [id number], hb 12 hbaic is 6.8, urine is positive for glucose and ketones and protein 06/09/2024: Assumed Care Patient still reporting 10/10 pain, WBC 14 and elevated LFTS. Remain NPO pending consul
[2024-06-09 08:12] LABS: Lipase 202 U/L (23-300)
[2024-06-09 08:37] LABS: Cholesterol 89 mg/dL (0-200); HDL Direct 23 mg/dL; Triglycerides 144 mg/dL (<150)
[2024-06-09 08:48] LABS: LDL Cholesterol Direct 41 mg/dL
[2024-06-09] MEDS: OMEGA 3 POLYUNSAT FATTY ACIDS 1 GM CAP 2 GM PO ×2 (08:58→18:13)
[2024-06-09] MEDS: carvediloL 12.5 MG TABLET PO ×2 (08:58→21:01)
[2024-06-09] MEDS: allopurinoL 100 MG TABLET PO (08:59)
[2024-06-09] MEDS: DOXYCYCLINE HYCLATE 100 MG TABLET PO ×2 (08:59→21:01)
[2024-06-09] MEDS: FAMOTIDINE 20 MG TABLET PO ×2 (08:59→21:01)
[2024-06-09] MEDS: ENOXAPARIN 40 MG/0.4 ML SYRINGE SUB-Q (08:59)
[2024-06-09] MEDS: TAMSULOSIN HCL 0.4 MG CAPSULE PO (08:59)
[2024-06-09] MEDS: lisinopriL 20 MG TABLET 40 MG PO (08:59)
[2024-06-09] MEDS: buPROPion HCL XL (24 HR) 150 MG TABCR PO (08:59)
[2024-06-09] MEDS: ESCITALOPRAM OXALATE 10 MG TABLET PO (09:00)
[2024-06-09] MEDS: clonazePAM (*CRX) 0.5 MG TABLET PO ×2 (09:06→21:01)
[2024-06-09 11:35] LABS: Glucose Point of Care 100 mg/dl (65-105)
--- NOTE | 2024-06-09 13:01 | PM.CNGS ---
Assessment and Plan Assessment and plan (1) Acute pancreatitis: Code(s): K85.90 - Acute pancreatitis without necrosis or infection, unspecified Status: Acute Assessment and Plan: Patient presented with acute pancreatitis, elevated bilirubin, and biliary duct dilation on imaging. Abdominal pain improving, lipase normalized. Etiology of pancreatitis not entirely clear. He denies any alcohol use. Triglycerides normal. No cholelithiasis or sludge seen in the gallbladder on any ultrasound or CT scans over the past month. The biliary duct dilation and elevated bilirubin are certainly concerning for a biliary cause for his pancreatitis. Agree with GI consultation. Will also order an abdominal MRI to further evaluate. Continue medical management for his acute pancreatitis. Discussed with the patient that depending on further workup, if this appears to be biliary pancreatitis, then we would typically recommend a laparoscopic cholecystectomy eventually after the pancreatitis improves.Will follow along to decide further plan after GI evaluation and MRI. (2) Dilation of biliary tract: Code(s): K83.8 - Other specified diseases of biliary tract Status: Acute Assessment and Plan: Biliary duct dilation on CT and ultrasound but no gallstones or sludge. Will get MRI to further evaluate. GI consulted. (3) Elevated liver enzymes: Code(s): R74.8 - Abnormal levels of other serum enzymes Status: Acute Assessment and Plan: Elevated LFTs with bilirubin up to 2.3 when first evaluated in the ED on 06/05, but has trended down to normal today. See plan above. (4) Type 2 diabetes mellitus without complications: Qualifiers: Diabetes mellitus fdc insulin use: without fdc use Qualified Code(s): E11.9 - Type 2 diabetes mellitus without complications Code(s): E11.9 - Type 2 diabetes mellitus without complications Status: Acute (5) Essential (primary) hypertension: Code(s): I10 - Essential (primary) hypertension Status: Acute Plan I have discussed the patient's case and plan of care with Dr. Iniguez. Thank you for allowing us to see the patient in consultation and we will continue to follow along with you. History of Present Illness Consult details Consult date: 06/09/24 Reason for consult: other (Biliary dilatation) Requesting physician: Willow Wiggins MD Narrative: This is a 63-year-old man with a history of type 2 diabetes mellitus, hypertension, hyperlipidemia, and anxiety, who we have been asked to see in surgical consultation for biliary dilation in the setting of acute pancreatitis. He reports about 5 days ago having a large meal that included a foot long cookie. Not long after eating, he developed upper abdominal pain that radiated into his back and into his chest. He had associated nausea and vomiting. He reports another episode of similar pain that brought him into the ER about a month ago after eating chilli cheese dogs. Workup in May in the ER showed a normal WBC count, mildly elevated AST and ALT, and CT evidence of intrahepatic and extrahepatic biliary duct dilatation, worsened from a CT scan in 2019. His symptoms improved and he was discharged from the ER. After this more recent episode last week, he came into the ED for evaluation on 06/05/24. Labs showed a WBC count of 13,100, total bilirubin 2.3, AST 558, ALT 780, alk-phos 190, and lipase 7658. Right upper quadrant ultrasound showed a normal gallbladder with no cholelithiasis, but a dilated cystic duct of 5 mm and a dilated common bile duct of [address] scan of the abdomen and pelvis shows acute interstitial pancreatitis, and stable appearance of intra and extrahepatic biliary ductal dilation. Decision was made to admit the patient for treatment of his pancreatitis, but the patient left AMA because he was not receiving his anxiety medication. He followed up with his PCP yesterday. He continued to have persistent
[2024-06-09] MEDS: LACTULOSE 20 GM/30 ML UDC PO ×2 (13:26→18:13)
[2024-06-09 14:36] VITALS: BP 124/72; PULSE 79; RESP 18; TEMP 36.6; O2SAT 93
[2024-06-09 16:46] LABS: Glucose Point of Care 101 mg/dl (65-105)
[2024-06-09 20:00] VITALS: BP 136/69; PULSE 86; RESP 18; TEMP 37.3; O2SAT 98
[2024-06-09 20:36] LABS: Glucose Point of Care 147 mg/dl (65-105)
[2024-06-09 21:01] VITALS: PULSE 86
[2024-06-09] MEDS: SENNA/DOCUSATE SODIUM TABLET 1 TAB PO (21:01)
[2024-06-10] VITALS (12 sets, daily range): BP systolic 117–159; BP diastolic 71–92; PULSE 71–99; RESP 16–18; TEMP 36.8–37.4; O2SAT 94–100
[2024-06-10] MEDS: HYDROcodone/acetaminophen (*CRX) 5-325 MG TABLET 1 TAB PO ×4 (00:18→23:54)
--- NOTE | 2024-06-10 00:20 | PC.NURSE ---
Pt does not want cont Iv fluids r/t having to use the restroom too much. Educated on the reason fluids were ordered. Pt still demands they be stopped.
[2024-06-10] MEDS: MORPHINE SULFATE (*CRX) 2 MG/ML INJ IV PUSH ×4 (01:04→20:13)
[2024-06-10 07:02] LABS: Alanine Aminotransferase 88 U/L (6-50); Albumin Level 3.7 g/dL (3.5-5.1); Alkaline Phosphatase 181 U/L (38-126); Anion Gap 15 mmol/L (4-12); Aspartate Amino Transferase 35 U/L (17-59); Blood Urea Nitrogen 13 mg/dL (9-20); Calcium 8.9 mg/dL (8.4-10.2); Carbon Dioxide 21 mmol/L (22-30); Chloride 98 mmol/L (98-107); Estimated CRCL calculation 97 ml/min; Estimated Glomerular Filt Rate > 60; Glucose 123 mg/dL (65-110); Potassium 3.6 mmol/L (3.4-5.0); Sodium 134 mmol/L (137-145)
[2024-06-10 07:12] LABS: Basophils Percent Auto 0.3 % (0.2-1.2); Eosinophils Absolute Auto 0.1 K/mm3 (0-0.3); Hematocrit 36.8 % (42.0-52.0); Hemoglobin 11.8 g/dL (14.0-18.0); Immature Granulocyte Absolute 0.17 K/mm3 (0.00-0.031); Immature Granulocyte Percent A 1.4 % (0-0.5); Lymphocytes Absolute Auto 1.23 K/mm3 (0.9-3.2); Lymphocytes Percent Auto 9.8 % (18.3-44.2); Mean Corpuscular HGB Conc 32.1 g/dl (32-36); Mean Corpuscular Hemoglobin 30.2 pg (26-34); Mean Corpuscular Volume 94.1 fl (80-100); Mean Platelet Volume 9.8 fl (7.4-10.4); Monocytes Absolute Auto 1.3 K/mm3 (0.1-0.6); Monocytes Percent Auto 10.5 % (2.6-8.5); Neutrophils Absolute Auto 9.7 K/mm3 (1.3-6.7); Platelet Count Result 203 k/mm3 (150-375); Red Blood Count 3.91 M/mm3 (4.6-6.20); Red Cell Distribution Width 12.9 % (11.5-14.5); White Blood Count 12.6 K/mm3 (4.5-10.0)
[2024-06-10] MEDS: HYDROmorphone HCL INJ (*CRX) 1 MG/ML SYR 0.5 MG IV PUSH ×2 (07:37→21:52)
[2024-06-10] MEDS: SODIUM CHLORIDE 0.9% IV 1,000 ML 125 ML IV CONT ×2 (07:38→21:54)
[2024-06-10 08:23] LABS: Glucose Point of Care 147 mg/dl (65-105)
--- NOTE | 2024-06-10 09:11 | WPDGICN ---
Assessment and Plan Assessment and plan (1) Acute pancreatitis: Code(s): K85.90 - Acute pancreatitis without necrosis or infection, unspecified Status: Acute Assessment and Plan: Patient presented with acute pancreatitis, elevated bilirubin, and biliary duct dilation on imaging. CT scan showed intrahepatic and extrahepatic ductal dilation. Follow up MRCP with small stones and sludge in the bile duct and likely the cause of his pancreatitis. LFTs and lipase trending down but still reports significant abdominal pain. ERCP today. -He denies any alcohol use. -Triglycerides normal. -Continue medical management for his acute pancreatitis. D (2) Dilation of biliary tract: Code(s): K83.8 - Other specified diseases of biliary tract Status: Acute (3) Elevated liver enzymes: Code(s): R74.8 - Abnormal levels of other serum enzymes Status: Acute Assessment and Plan: Elevated LFTs with bilirubin up to 2.3 when first evaluated in the ED on 06/05, trending down. likely 2/2 to choledocholithiasis. continue to trend no prior hx of LFTs, Plan I have discussed the patient's case and plan of care with Dr. Iniguez. Thank you for allowing us to see the patient in consultation and we will continue to follow along with you. GI Consult Note Consult date/time: 06/10/24 09:11 Reason for consult: Pancreatitis HPI: Leroy Ariza is a 63 year old male who presented we were ask to for evaluation of acute pancreatitis. Past medical and surgical hx of anxiety, arthritis, BPH, chronic kidney disease, diabetes, depression, hypertension, gout, IgA, hyperlipidemia, rotator cuff tendinitis, ruptured right proximal biceps tendon, B12 deficiency, VIT D deficiency, colonoscopy polyps, cataract surgery, removal skin lesion, and shoulder surgery. He presented to [facility] on 06/08/2024 for c/o nausea, vomiting, epigastric abdominal pain, and back that had been going on for 5 days. He had 2 previous ER visit over the past month for similar symptoms (left AMA on 06/05/2024). He denies any prior hx of similar symptoms. Labs reviewed from 06/05/2024 showed a white count of 13.1 electrolytes showed a BUN of 26 creatinine 1.1 glucose was 228 lactate was 1.2 bilirubin was elevated at 2.3 AST was 558 ALT was 780 alk-phos is [address] scan showed acute interstitial pancreatitis. He elected to leave [facility] and returned to [facility] 3 days later when symptoms failed to improve. Labs from 06/08/2024 with a white blood cell count of 14.0, BUN of 13. Creatinine 0.8, total bilirubin 1.5, AST 37, ALT 167, alk phos 145, lipase 173. Triglycerides of 144. Repeat CT scan 06/08/2024 showed stable acute interstitial pancreatitis. Mild intrahepatic and extrahepatic ductal dilation stable from 05/16/2024 and worsened from 12/25/2019. MRCP she revealed mild intrahepatic and extrahepatic biliary duct dilatation and gallbladder distention. Sludge and small stones in the common bile duct and gallbladder. he denies any significant history of alcohol use. He denies any prior history of pancreatitis of family hx of pancreatic disease. Review of Systems Constitutional: Constitutional: Reports anorexia and Reports fatigue Eyes: Eyes: Denies change in vision ENT: Denies hoarseness Cardiovascular: Cardiovascular: Denies chest pain Respiratory: Respiratory: Denies cough Gastrointestinal: Gastrointestinal: Reports as per HPI Genitourinary: Genitourinary: Denies urinary frequency Musculoskeletal: Musculoskeletal: Denies abnormal gait and Denies myalgias Integumentary/Breasts: Skin/Breast: Denies rash and Denies jaundice Neurologic: Denies abnormal gait Psychiatric: Psychiatric: Denies change in appetite Endocrine: Endocrine: Denies fatigue Hematologic/Lymphatic: Hematologic/Lymphatic: Denies easy bruising Allergic/Immunologic: Allergic/Immunologic: Denies GI upset with certain foods PMFSH Past Medical H
[2024-06-10] MEDS: FAMOTIDINE 20 MG TABLET PO ×2 (09:13→20:14)
[2024-06-10] MEDS: ESCITALOPRAM OXALATE 10 MG TABLET PO (09:13)
[2024-06-10] MEDS: buPROPion HCL XL (24 HR) 150 MG TABCR PO (09:13)
[2024-06-10] MEDS: OMEGA 3 POLYUNSAT FATTY ACIDS 1 GM CAP 2 GM PO ×2 (09:13→17:28)
[2024-06-10] MEDS: carvediloL 12.5 MG TABLET PO ×2 (09:14→20:14)
[2024-06-10] MEDS: PIPERACILLN/TAZ 3.375GM/NS50ML 3.375 GM/50 ML BAG IVPB ×3 (09:14→20:27)
[2024-06-10] MEDS: ENOXAPARIN 40 MG/0.4 ML SYRINGE SUB-Q (09:14)
[2024-06-10] MEDS: allopurinoL 100 MG TABLET PO (09:14)
[2024-06-10] MEDS: lisinopriL 20 MG TABLET 40 MG PO (09:14)
[2024-06-10] MEDS: TAMSULOSIN HCL 0.4 MG CAPSULE PO (09:14)
--- NOTE | 2024-06-10 09:18 | P.PNIM_ITS ---
Progress Note: A&P Assessment and Plan (1) Acute pancreatitis: Code(s): K85.90 - Acute pancreatitis without necrosis or infection, unspecified Status: Acute (2) Type 2 diabetes mellitus without complications: Qualifiers: Diabetes mellitus fdc insulin use: without dean of student services use Qualified Code(s): E11.9 - Type 2 diabetes mellitus without complications Code(s): E11.9 - Type 2 diabetes mellitus without complications Status: Acute (3) Essential (primary) hypertension: Code(s): I10 - Essential (primary) hypertension Status: Acute (4) Constipation: Code(s): K59.00 - Constipation, unspecified Status: Acute (5) Elevated liver enzymes: Code(s): R74.8 - Abnormal levels of other serum enzymes Status: Acute (6) Rash: Code(s): R21 - Rash and other nonspecific skin eruption Status: Acute (7) Dilation of biliary tract: Code(s): K83.8 - Other specified diseases of biliary tract Status: Acute Plan Pancreatitis * elevated Lipase POA * IV fluids * pain control * NPO advance when tolerated * PPI * Leukocytosis coverage with IV Zosyn * Farxiga D/C Biliary dilation/elevated LFTS * Surgery/GI consulted * USGB ordered showing Mild intrahepatic and extrahepatic biliary duct dilatation, stable from 05/16/2024 and worsened from 12/25/2019 * WBC 14-->12.6 * Fever 101.4 on 06/08, afebrile since * Zosyn IV * LFTS down trending * MRCP shows acute interstitial pancreatitis and mild intrahepatic and extrahepatic biliary duct dilatation and gallbladder distention. Sludge and small stones in the common duct and gallbladder. * ERCP ordered Constipation * Chronic narcotic use * IV fluids * Stool softener * Lactulose Q6hr until BM * KUB no ileus * Encourage ambulation Diabetes * Accu-Cheks a.c. HS * sliding scale insulin * D/C Farxiga due to acute pancreatitis * resume patient's home long-acting * Hemoglobin A1c goal less than 7 pending * lipid panel shows triglycerides normal, total cholesterol 89, LDL 41, HDL 23 * Diabetic diet * Optimize Robe inhibitors and statins. * Watch for hypoglycemia/hypoglycemic protocol ordered * Non-anion gap metabolic acidosis (AG 15) 2/2 IV saline infusion Hypertension * mildly hypertensive * resume home medications * BP per unit protocol Rash * itchy rash on arms and legs and abdomen * denies bites or cuts * ? dermatitis ? cellulitis add oral doxycycline * Doxycycline p.o. was initiated HX BPH: resumed flomax HX Anxiety: Resumed home medication clonazepam/Lexapro HX chronic narcotic use Code status: Full code per patient DVT prophylaxis: Lovenox Stress ulcer prophylaxis: Protonix BID PT/OT notes: ambulatory Disposition: Patient was admitted for acute pancreatitis biliary dilation and constipation. ERCP completed and shows biliary sludge, gastritis, and duodenitis. Surgery will proceed with lap becky tomorrow. Patient is ambulatory and likely discharge back to home when medically stable. Subjective Date/time seen: 06/10/24 09:18 Interval history: 63 y/o M presents here with nausea, vomiting, and abdominal known with PMH of anxiety, arthritis, BPH, depression, diabetes, diverticulitis, HTN, gout, MARIA ANTONIA, and HLD. 06/10: Patient is seen in bed resting in bed after his ERCP. He states that his pain is slightly improved, 06/10 with pain medications. He has tolerated
--- NOTE | 2024-06-10 09:18 | PM.IMPN ---
Progress Note: A&P Assessment and Plan (1) Acute pancreatitis: Code(s): K85.90 - Acute pancreatitis without necrosis or infection, unspecified Status: Acute (2) Type 2 diabetes mellitus without complications: Qualifiers: Diabetes mellitus custodial insulin use: without rn long term care use Qualified Code(s): E11.9 - Type 2 diabetes mellitus without complications Code(s): E11.9 - Type 2 diabetes mellitus without complications Status: Acute (3) Essential (primary) hypertension: Code(s): I10 - Essential (primary) hypertension Status: Acute (4) Constipation: Code(s): K59.00 - Constipation, unspecified Status: Acute (5) Elevated liver enzymes: Code(s): R74.8 - Abnormal levels of other serum enzymes Status: Acute (6) Rash: Code(s): R21 - Rash and other nonspecific skin eruption Status: Acute (7) Dilation of biliary tract: Code(s): K83.8 - Other specified diseases of biliary tract Status: Acute Plan Pancreatitis elevated Lipase POA IV fluids pain control NPO advance when tolerated PPI Leukocytosis coverage with IV Zosyn Farxiga D/C Biliary dilation/elevated LFTS Surgery/GI consulted USGB ordered showing Mild intrahepatic and extrahepatic biliary duct dilatation, stable from 05/16/2024 and worsened from 12/25/2019 WBC 14-->12.6 Fever 101.4 on 06/08, afebrile since Zosyn IV LFTS down trending MRCP shows acute interstitial pancreatitis and mild intrahepatic and extrahepatic biliary duct dilatation and gallbladder distention. Sludge and small stones in the common duct and gallbladder. ERCP ordered Constipation Chronic narcotic use IV fluids Stool softener Lactulose Q6hr until BM KUB no ileus Encourage ambulation Diabetes Accu-Cheks a.c. HS sliding scale insulin D/C Farxiga due to acute pancreatitis resume patient's home long-acting Hemoglobin A1c goal less than 7 pending lipid panel shows triglycerides normal, total cholesterol 89, LDL 41, HDL 23 Diabetic diet Optimize Robe inhibitors and statins. Watch for hypoglycemia/hypoglycemic protocol ordered Non-anion gap metabolic acidosis (AG 15) 2/2 IV saline infusion Hypertension mildly hypertensive resume home medications BP per unit protocol Rash itchy rash on arms and legs and abdomen denies bites or cuts ? dermatitis ? cellulitis add oral doxycycline Doxycycline p.o. was initiated HX BPH: resumed flomax HX Anxiety: Resumed home medication clonazepam/Lexapro HX chronic narcotic use Code status: Full code per patient DVT prophylaxis: Lovenox Stress ulcer prophylaxis: Protonix BID PT/OT notes: ambulatory Disposition: Patient was admitted for acute pancreatitis biliary dilation and constipation. ERCP completed and shows biliary sludge, gastritis, and duodenitis. Surgery will proceed with lap becky tomorrow. Patient is ambulatory and likely discharge back to home when medically stable. Subjective Date/time seen: 06/10/24 09:18 Interval history: 63 y/o M presents here with nausea, vomiting, and abdominal known with PMH of anxiety, arthritis, BPH, depression, diabetes, diverticulitis, HTN, gout, MARIA ANTONIA, and HLD. 06/10: Patient is seen in bed resting in bed after his ERCP. He states that his pain is slightly improved, 06/10 with pain medications. He has tolerated clear liquids without increased pain, nausea, or vomiting. He reports having an episode of loose stool this morning. I confirmed with him that surgery is planning on lap choley tomorrow. Review of Systems Review of Systems: All systems reviewed & are unremarkable except as noted in HPI and below Exam Narrative: General: well appearing, appears stated age. HEENT: normocephalic, atraumatic. Mucous membranes moist. EOMI, PERRLA, bilateral sclera anicteric, no conjunctival injection. Neck supple without JVD, lymphadenopathy, or
[2024-06-10 11:03] LABS: Glucose Point of Care 134 mg/dl (65-105)
[2024-06-10] MEDS: LACTATED RINGERS 1,000 ML 150 ML IV CONT (11:05)
--- NOTE | 2024-06-10 11:25 | PM.PNGS ---
Progress Note: A&P Assessment and Plan (1) Acute pancreatitis: Code(s): K85.90 - Acute pancreatitis without necrosis or infection, unspecified Status: Acute Assessment and Plan: Pancreatitis is improving. Etiology appears to be biliary. MRCP showed sludge and small stones in the common duct and gallbladder. GI planning ERCP today Continue supportive care He will eventually need an interval laparoscopic cholecystectomy at some point. Will follow along. (2) Dilation of biliary tract: Code(s): K83.8 - Other specified diseases of biliary tract Status: Acute Assessment and Plan: MRCP showed sludge and gallstones in the common bile duct and gallbladder. See plan above. (3) Elevated liver enzymes: Code(s): R74.8 - Abnormal levels of other serum enzymes Status: Acute Assessment and Plan: Likely related to choledocholithiasis. LFTs trending down. GI planning ERCP. Plan I have discussed the patient's case and plan of care with Dr. Iniguez. Subjective Subjective Date/Time Seen: 06/10/24 11:25 Patient reports: no new complaints and tolerating liquids well (last night, currently NPO this morning for ERCP) Interval history: Patient feels his pain is well controlled this morning. No nausea or vomiting. He did well with clear liquids yesterday afternoon. Exam Const: General: comfortable and no acute distress Orientation/consciousness: patient oriented x3 GI: Inspection: non-distended GI Palp: Yes Soft to palpation, Yes Tenderness to palpation present (GI) (less tender today, TTP in the LUQ), Yes Guarding due to palpation present (GI) (voluntary guarding with palpation in the LUQ) and No Rebound tenderness present Percussion: Yes normal to percussion Auscultation: normal bowel sounds Objective Data Vital Signs Vital Signs: Vital Signs - 24 hr 06/09/24 14:36 06/09/24 20:00 06/09/24 21:01 Temperature 97.9 F 99.2 F Pulse Rate 79 86 86 Respiratory Rate 18 18 Blood Pressure 124/72 136/69 Pulse Oximetry 93 98 Oxygen Delivery Fraction of Inspired Oxygen 06/09/24 20:00 06/10/24 05:36 06/10/24 08:12 Temperature 98.7 F Pulse Rate 81 Respiratory Rate 16 Blood Pressure 143/71 H Pulse Oximetry 96 97 Oxygen Delivery Room Air Room Air Fraction of Inspired Oxygen 21 06/10/24 08:00 06/10/24 11:04 Temperature 98.4 F Pulse Rate 73 Respiratory Rate 16 Blood Pressure 126/73 Pulse Oximetry 96 Oxygen Delivery Room Air Room Air Fraction of Inspired Oxygen 21 Intake/Output Intake/Output: Intake & Output 06/07/24 06/08/24 06/09/24 06/10/24 23:59 23:59 23:59 23:59 Intake Total 1999 1829.2 1000 Balance 1999 1829.2 1000 Meds/Results Medications: Active Medications Generic Name Dose Route Start Last Admin Trade Name Freq PRN Reason Stop Dose Admin Acetaminophen 650 mg 06/08/24 21:52 Acetaminophen 325 Mg Tablet PO Q4H PRN Mild Pain (1-3) or Fever Hydrocodone Bitart/Acetaminophen 1 tab 06/08/24 21:47 06/10/24 09:13 Hydrocodone/Acetaminophen (*Crx) 5-325 Mg Tablet PO 1 tab Q6H PRN Administration pain 4-6 Allopurinol 100 mg 06/09/24 09:00 06/10/24 09:14 Allopurinol 100 Mg Tablet PO 100 mg DAILY JUNE Administration Bupropion HCl 150 mg 06/09/24 09:00 06/10/24 09:13 Bupropion Hcl Xl (24 Hr) 150 Mg Tabcr PO 150 mg QAM JUNE Administration Carvedilol 12.5 mg 06/09/24 09:00 06/10/24 09:14 Carvedilol 12.5 Mg Tablet PO 12.5 mg Q12HR JUNE Administration Clonazepam 0.5 mg 06/08/24 21:47 06/09/24 21:01 Clonazepam (*Crx) 0.5 Mg Tablet PO 0.5 mg TID PRN Administration anxiety Dextrose 12.5 gm 06/08/24 23:39 Dextrose 50% 25 Gm/50 Ml Syringe IV PUSH PRN PRN Hypoglycemia Protocol Enoxaparin Sodium 40 mg 06/09/24 09:00 06/10/24 09:14 Enoxaparin 40 Mg/0.4 Ml Syringe SUB-Q 40 mg DAILY JUNE Administration Escitalopram Oxalate
--- NOTE | 2024-06-10 11:30 | WPDANESEPPF ---
Anes - Initial Pre Proc Eval Procedure: Operation Date: 06/10/24 16:30 Proposed Procedures p Endoscopic Retro Cholangiopancreatogram - Reuben Brar MD Date/Time: 06/10/24 11:30 Surgeon: Airam Romero APRN Pre Op Diagnosis: Acute Pancreatitis Patient Data Age: 63 Gender: M Height: 1.78 m Weight: 104 kg Last Vital Signs Temp 98.4 F 06/10/24 11:04 Pulse 73 06/10/24 11:04 Resp 16 06/10/24 11:04 BP 126/73 06/10/24 11:04 Pulse Ox 96 06/10/24 11:04 O2 Del Method Room Air 06/10/24 11:04 FiO2 21 06/10/24 11:04 Allergies Allergy/AdvReac Type Severity Reaction Status Date / Time naproxen Allergy Unknown Rash Verified 06/10/24 11:02 codeine AdvReac Unknown Nausea Verified 06/10/24 11:02 Home Medications Medication Instructions Recorded Confirmed Type rosuvastatin 40 mg tablet 40 mg PO QHS #90 tabs 01/19/24 06/08/24 Rx tamsulosin 0.4 mg capsule 0.4 mg PO DAILY #90 caps 01/20/24 06/08/24 Rx carvedilol 12.5 mg tablet 12.5 mg PO BID #180 tabs 03/19/24 06/08/24 Rx bupropion HCl 150 mg 24 hr tablet, 150 mg PO QAM #90 tabs 03/27/24 06/08/24 Rx extended release escitalopram oxalate 10 mg tablet 10 mg PO DAILY #90 tabs 04/07/24 06/08/24 Rx (Lexapro) allopurinol 100 mg tablet 100 mg PO DAILY #90 tabs 04/16/24 06/08/24 Rx icosapent ethyl 1 gram capsule 2 g PO BID #360 caps 04/19/24 06/08/24 Rx hydrocodone 5 mg-acetaminophen 325 1 tablet PO Q6H PRN pain #120 tabs 05/07/24 06/08/24 Rx mg tablet famotidine 20 mg tablet (Pepcid) 20 mg PO BID 6 weeks #84 tabs 05/16/24 06/08/24 Rx clonazepam 0.5 mg tablet 0.5 mg PO TID PRN anxiety #90 tabs 05/20/24 06/08/24 Rx meloxicam 15 mg tablet 15 mg PO DAILY #90 tabs 05/20/24 06/08/24 Rx sildenafil 50 mg tablet 50 mg PO DAILY PRN sexual activity 05/25/24 06/08/24 Rx #7 tabs dapagliflozin propanediol 10 mg 10 mg PO BID 06/05/24 06/08/24 History tablet (Farxiga) lisinopril 10 mg tablet 40 mg PO DAILY #90 tabs 06/08/24 06/08/24 Rx Laboratory Tests 06/09/24 06/09/24 06/09/24 11:23 16:23 20:03 WBC RBC Hgb Hct MCV MCH MCHC RDW Plt Count MPV Immature Gran % (Auto) Neut % (Auto) Lymph % (Auto) [place] % (Auto) Eos % (Auto) Baso % (Auto) Lymph # (Auto) [place] # (Auto) Eos # (Auto) Baso # (Auto) Abs Immat Gran (auto) Absolute Neuts (auto) Absolute Nucleated RBC Nucleated RBC % Sodium Potassium Chloride Carbon Dioxide Anion Gap BUN Creatinine Estim Creat Clear Calc Estimated GFR Glucose POC Capillary Glucose 100 mg/dl 101 mg/dl 147 H mg/dl (65-105) (65-105) (65-105) Hemoglobin A1c Calcium Total Bilirubin AST ALT Alkaline Phosphatase Total Protein Albumin 06/10/24 06/10/24 06/10/24 06:00 06:12 07:52 WBC 12.6 H K/mm3 (4.5-10.0) RBC 3.91 L M/mm3 (4.6-6.20) Hgb 11.8 L g/dL (14.0-18.0) Hct 36.8 L % (42.0-52.0) MCV 94.1 fl (80-100) MCH 30.2 pg (26-34) MCHC 32.1 g/dl (32-36) RDW 12.9 % (11.5-14.5) Plt Count 203 k/mm3 (150-375) MPV 9.8 fl (7.4-10.4) Immature Gran % (Auto) 1.4 H % (0-0.5) Neut % (Auto) 77.0 H % (45.5-73.1) Lymph % (Auto) 9.8 L % (18.3-44.2) [place] % (Auto) 10.5 H % (2.6-8.5) Eos % (Auto) 1.0 % (0-4.4) Baso % (Auto) 0.3 % (0.2-1.2) Lymph # (Auto) 1.23 K/mm3 (0.9-3.2) [place] # (Auto) 1.3 H K/mm3
[2024-06-10 13:03] LABS: Glucose Point of Care 123 mg/dl (65-105)
[2024-06-10 16:56] LABS: Glucose Point of Care 136 mg/dl (65-105)
[2024-06-10] MEDS: LACTULOSE 20 GM/30 ML UDC PO (17:28)
[2024-06-10] MEDS: clonazePAM (*CRX) 0.5 MG TABLET PO (20:14)
[2024-06-10] MEDS: ONDANSETRON INJ 4 MG/2 ML VIAL IV PUSH ×2 (20:15→23:54)
[2024-06-10] MEDS: PANTOPRAZOLE SODIUM IV 40 MG VIAL IV PUSH (20:15)
[2024-06-10 20:18] LABS: Glucose Point of Care 235 mg/dl (65-105)
[2024-06-10 21:02] LABS: Hemoglobin A1C 7.2 % (<5.7)
[2024-06-11] VITALS (14 sets, daily range): BP systolic 116–164; BP diastolic 64–84; PULSE 75–102; RESP 14–19; TEMP 36.4–38.1; O2SAT 92–100
[2024-06-11] MEDS: PIPERACILLN/TAZ 3.375GM/NS50ML 3.375 GM/50 ML BAG IVPB ×4 (02:15→19:50)
[2024-06-11] MEDS: ONDANSETRON INJ 4 MG/2 ML VIAL IV PUSH (03:52)
[2024-06-11] MEDS: MORPHINE SULFATE (*CRX) 2 MG/ML INJ IV PUSH ×2 (03:55→08:52)
[2024-06-11] MEDS: HYDROmorphone HCL INJ (*CRX) 1 MG/ML SYR 0.5 MG IV PUSH (05:13)
[2024-06-11 06:31] LABS: Basophils Absolute Auto 0.1 K/mm3 (0.0-0.1); Basophils Percent Auto 0.5 % (0.2-1.2); Eosinophils Absolute Auto 0.1 K/mm3 (0-0.3); Hematocrit 30.9 % (42.0-52.0); Hemoglobin 10.1 g/dL (14.0-18.0); Immature Granulocyte Absolute 0.13 K/mm3 (0.00-0.031); Immature Granulocyte Percent A 1.2 % (0-0.5); Lymphocytes Absolute Auto 0.98 K/mm3 (0.9-3.2); Mean Corpuscular HGB Conc 32.7 g/dl (32-36); Mean Corpuscular Hemoglobin 29.5 pg (26-34); Mean Corpuscular Volume 90.4 fl (80-100); Mean Platelet Volume 9.5 fl (7.4-10.4); Monocytes Absolute Auto 1.2 K/mm3 (0.1-0.6); Monocytes Percent Auto 10.8 % (2.6-8.5); Neutrophils Absolute Auto 8.4 K/mm3 (1.3-6.7); Neutrophils Percent Auto 77.5 % (45.5-73.1); Platelet Count Result 194 k/mm3 (150-375); Red Blood Count 3.42 M/mm3 (4.6-6.20); Red Cell Distribution Width 12.8 % (11.5-14.5); White Blood Count 10.8 K/mm3 (4.5-10.0)
[2024-06-11 06:41] LABS: INR 1.2; Prothrombin Time 15.4 Seconds (11.1-14.7)
[2024-06-11 06:47] LABS: Alanine Aminotransferase 96 U/L (6-50); Albumin Level 3.2 g/dL (3.5-5.1); Alkaline Phosphatase 287 U/L (38-126); Anion Gap 11 mmol/L (4-12); Aspartate Amino Transferase 49 U/L (17-59); Bilirubin,Total 0.7 mg/dL (0.2-1.3); Blood Urea Nitrogen 11 mg/dL (9-20); Calcium 8.4 mg/dL (8.4-10.2); Carbon Dioxide 23 mmol/L (22-30); Chloride 99 mmol/L (98-107); Estimated CRCL calculation 97 ml/min; Estimated Glomerular Filt Rate > 60; Glucose 146 mg/dL (65-110); Potassium 3.1 mmol/L (3.4-5.0); Sodium 133 mmol/L (137-145)
--- NOTE | 2024-06-11 08:04 | P.PNIM_ITS ---
Progress Note: A&P Assessment and Plan (1) Acute pancreatitis: Code(s): K85.90 - Acute pancreatitis without necrosis or infection, unspecified Status: Acute (2) Type 2 diabetes mellitus without complications: Qualifiers: Diabetes mellitus penitentiary insulin use: without ferry terminal agent use Qualified Code(s): E11.9 - Type 2 diabetes mellitus without complications Code(s): E11.9 - Type 2 diabetes mellitus without complications Status: Acute (3) Essential (primary) hypertension: Code(s): I10 - Essential (primary) hypertension Status: Acute (4) Constipation: Code(s): K59.00 - Constipation, unspecified Status: Acute (5) Elevated liver enzymes: Code(s): R74.8 - Abnormal levels of other serum enzymes Status: Acute (6) Rash: Code(s): R21 - Rash and other nonspecific skin eruption Status: Acute (7) Dilation of biliary tract: Code(s): K83.8 - Other specified diseases of biliary tract Status: Acute Plan Pancreatitis * elevated Lipase POA * IV fluids * pain control * NPO advance when tolerated * PPI * Leukocytosis coverage with IV Zosyn * Farxiga D/C Biliary dilation/elevated LFTS * Surgery/GI consulted * USGB ordered showing Mild intrahepatic and extrahepatic biliary duct dilatation, stable from 05/16/2024 and worsened from 12/25/2019 * WBC 14-->12.6 * Fever 101.4 on 06/08, afebrile since * Zosyn IV * LFTS down trending * MRCP shows acute interstitial pancreatitis and mild intrahepatic and extrahepatic biliary duct dilatation and gallbladder distention. Sludge and small stones in the common duct and gallbladder. * ERCP ordered Constipation * Chronic narcotic use * IV fluids * Stool softener * Lactulose Q6hr until BM * KUB no ileus * Encourage ambulation Diabetes * Accu-Cheks a.c. HS * sliding scale insulin * D/C Farxiga due to acute pancreatitis * resume patient's home long-acting * Hemoglobin A1c goal less than 7 pending * lipid panel shows triglycerides normal, total cholesterol 89, LDL 41, HDL 23 * Diabetic diet * Optimize Robe inhibitors and statins. * Watch for hypoglycemia/hypoglycemic protocol ordered * Non-anion gap metabolic acidosis (AG 15) 2/2 IV saline infusion Hypertension * mildly hypertensive * resume home medications * BP per unit protocol Rash * itchy rash on arms and legs and abdomen * denies bites or cuts * ? dermatitis ? cellulitis add oral doxycycline * Doxycycline p.o. was initiated * He has outpatient follow up with dermatology HX BPH: resumed flomax HX Anxiety: Resumed home medication clonazepam/Lexapro HX chronic narcotic use Code status: Full code per patient DVT prophylaxis: Lovenox Stress ulcer prophylaxis: Protonix BID PT/OT notes: ambulatory Disposition: Patient was admitted for acute pancreatitis biliary dilation and constipation. ERCP completed and shows biliary sludge, gastritis, and duodenitis. Going for surgery today at 1300. Patient is ambulatory and likely discharge back to home when medically stable. Subjective Date/time seen: 06/11/24 08:04 Interval history: 63 y/o M presents here with nausea, vomiting, and abdominal known with PMH of anxiety, arthritis, BPH, depression, diabetes, diverticulitis, HTN, gout, MARIA ANTONIA, and HLD. 06/10: Patient is seen in bed resting in bed after his ERCP. He states that his pain is slightly improved, 06/10
--- NOTE | 2024-06-11 08:04 | PM.IMPN ---
Progress Note: A&P Assessment and Plan (1) Acute pancreatitis: Code(s): K85.90 - Acute pancreatitis without necrosis or infection, unspecified Status: Acute (2) Type 2 diabetes mellitus without complications: Qualifiers: Diabetes mellitus group home insulin use: without extermination inspector use Qualified Code(s): E11.9 - Type 2 diabetes mellitus without complications Code(s): E11.9 - Type 2 diabetes mellitus without complications Status: Acute (3) Essential (primary) hypertension: Code(s): I10 - Essential (primary) hypertension Status: Acute (4) Constipation: Code(s): K59.00 - Constipation, unspecified Status: Acute (5) Elevated liver enzymes: Code(s): R74.8 - Abnormal levels of other serum enzymes Status: Acute (6) Rash: Code(s): R21 - Rash and other nonspecific skin eruption Status: Acute (7) Dilation of biliary tract: Code(s): K83.8 - Other specified diseases of biliary tract Status: Acute Plan Pancreatitis elevated Lipase POA IV fluids pain control NPO advance when tolerated PPI Leukocytosis coverage with IV Zosyn Farxiga D/C Biliary dilation/elevated LFTS Surgery/GI consulted USGB ordered showing Mild intrahepatic and extrahepatic biliary duct dilatation, stable from 05/16/2024 and worsened from 12/25/2019 WBC 14-->12.6 Fever 101.4 on 06/08, afebrile since Zosyn IV LFTS down trending MRCP shows acute interstitial pancreatitis and mild intrahepatic and extrahepatic biliary duct dilatation and gallbladder distention. Sludge and small stones in the common duct and gallbladder. ERCP ordered Constipation Chronic narcotic use IV fluids Stool softener Lactulose Q6hr until BM KUB no ileus Encourage ambulation Diabetes Accu-Cheks a.c. HS sliding scale insulin D/C Farxiga due to acute pancreatitis resume patient's home long-acting Hemoglobin A1c goal less than 7 pending lipid panel shows triglycerides normal, total cholesterol 89, LDL 41, HDL 23 Diabetic diet Optimize Robe inhibitors and statins. Watch for hypoglycemia/hypoglycemic protocol ordered Non-anion gap metabolic acidosis (AG 15) 2/2 IV saline infusion Hypertension mildly hypertensive resume home medications BP per unit protocol Rash itchy rash on arms and legs and abdomen denies bites or cuts ? dermatitis ? cellulitis add oral doxycycline Doxycycline p.o. was initiated He has outpatient follow up with dermatology HX BPH: resumed flomax HX Anxiety: Resumed home medication clonazepam/Lexapro HX chronic narcotic use Code status: Full code per patient DVT prophylaxis: Lovenox Stress ulcer prophylaxis: Protonix BID PT/OT notes: ambulatory Disposition: Patient was admitted for acute pancreatitis biliary dilation and constipation. ERCP completed and shows biliary sludge, gastritis, and duodenitis. Going for surgery today at 1300. Patient is ambulatory and likely discharge back to home when medically stable. Subjective Date/time seen: 06/11/24 08:04 Interval history: 63 y/o M presents here with nausea, vomiting, and abdominal known with PMH of anxiety, arthritis, BPH, depression, diabetes, diverticulitis, HTN, gout, MARIA ANTONIA, and HLD. 06/10: Patient is seen in bed resting in bed after his ERCP. He states that his pain is slightly improved, 06/10 with pain medications. He has tolerated clear liquids without increased pain, nausea, or vomiting. He reports having an episode of loose stool this morning. I confirmed with him that surgery is planning on [facility] tomorrow. 06/11: No acute events overnight. He is resting in bed awaiting surgery at 1300. Review of Systems Review of Systems: All systems reviewed & are unremarkable except as noted in HPI and below Exam Narrative: General: well appearing, appears stated age. HEENT: normocephalic, atraumatic. Mucous membranes mo
[2024-06-11 08:20] LABS: Glucose Point of Care 199 mg/dl (65-105)
[2024-06-11] MEDS: ESCITALOPRAM OXALATE 10 MG TABLET PO (09:02)
[2024-06-11] MEDS: FAMOTIDINE 20 MG TABLET PO ×2 (09:02→19:50)
[2024-06-11] MEDS: buPROPion HCL XL (24 HR) 150 MG TABCR PO (09:02)
[2024-06-11] MEDS: lisinopriL 20 MG TABLET 40 MG PO (09:02)
[2024-06-11] MEDS: TAMSULOSIN HCL 0.4 MG CAPSULE PO (09:02)
[2024-06-11] MEDS: allopurinoL 100 MG TABLET PO (09:02)
[2024-06-11] MEDS: POTASSIUM CHLORIDE 20 MEQ ER TABLET 40 MEQ PO (09:02)
[2024-06-11] MEDS: carvediloL 12.5 MG TABLET PO ×2 (09:02→19:50)
[2024-06-11] MEDS: SODIUM CHLORIDE 0.9% IV 1,000 ML 125 ML IV CONT (09:02)
[2024-06-11] MEDS: PANTOPRAZOLE SODIUM IV 40 MG VIAL IV PUSH ×2 (09:03→19:50)
[2024-06-11] MEDS: ENOXAPARIN 40 MG/0.4 ML SYRINGE SUB-Q (09:06)
[2024-06-11 11:43] LABS: Glucose Point of Care 141 mg/dl (65-105)
--- NOTE | 2024-06-11 11:43 | PC.NURSE ---
Pt to surgery per WC accompanied by hospital staff.
[2024-06-11 12:19] LABS: Glucose Point of Care 142 mg/dl (65-105)
--- NOTE | 2024-06-11 12:26 | WPDHPUPDATE1 ---
History and Physical Update Update Date/Time: 06/11/24 12:26 History and Physical has been reviewed, including an updated exam of the patient. There are NO changes in the patient's condition. Risks, benefits, and alternatives have been discussed and questions answered. Patient agrees to proceed with procedure.
[2024-06-11] MEDS: fentaNYL CITRATE INJ (*CRX) 100 MCG/2 ML VIAL 25 MCG IV PUSH ×2 (13:05→13:11)
--- NOTE | 2024-06-11 13:20 | WPDANESEPPF ---
Anes - Initial Pre Proc Eval Procedure: Operation Date: 06/11/24 13:00 Proposed Procedures p Laparoscopic Cholecystectomy, Possible Open - Shadi Iniguez DO Date/Time: 06/11/24 13:20 Surgeon: Airam Romero APRN Pre Op Diagnosis: Acute Pancreatitis Patient Data Age: 63 Gender: M Height: 1.78 m Weight: 104 kg Last Vital Signs Temp 37.2 C 06/11/24 12:00 Pulse 79 06/11/24 12:00 Resp 16 06/11/24 12:00 BP 148/76 H 06/11/24 12:00 Pulse Ox 98 06/11/24 12:00 O2 Del Method Room Air 06/11/24 12:00 O2 Flow Rate 2 06/10/24 13:05 FiO2 21 06/11/24 08:00 Allergies Allergy/AdvReac Type Severity Reaction Status Date / Time naproxen Allergy Unknown Rash Verified 06/11/24 12:03 codeine AdvReac Unknown Nausea Verified 06/11/24 12:03 Home Medications Medication Instructions Recorded Confirmed Type rosuvastatin 40 mg tablet 40 mg PO QHS #90 tabs 01/19/24 06/08/24 Rx tamsulosin 0.4 mg capsule 0.4 mg PO DAILY #90 caps 01/20/24 06/08/24 Rx carvedilol 12.5 mg tablet 12.5 mg PO BID #180 tabs 03/19/24 06/08/24 Rx bupropion HCl 150 mg 24 hr tablet, 150 mg PO QAM #90 tabs 03/27/24 06/08/24 Rx extended release escitalopram oxalate 10 mg tablet 10 mg PO DAILY #90 tabs 04/07/24 06/08/24 Rx (Lexapro) allopurinol 100 mg tablet 100 mg PO DAILY #90 tabs 04/16/24 06/08/24 Rx icosapent ethyl 1 gram capsule 2 g PO BID #360 caps 04/19/24 06/08/24 Rx hydrocodone 5 mg-acetaminophen 325 1 tablet PO Q6H PRN pain #120 tabs 05/07/24 06/08/24 Rx mg tablet famotidine 20 mg tablet (Pepcid) 20 mg PO BID 6 weeks #84 tabs 05/16/24 06/08/24 Rx clonazepam 0.5 mg tablet 0.5 mg PO TID PRN anxiety #90 tabs 05/20/24 06/08/24 Rx meloxicam 15 mg tablet 15 mg PO DAILY #90 tabs 05/20/24 06/08/24 Rx sildenafil 50 mg tablet 50 mg PO DAILY PRN sexual activity 05/25/24 06/08/24 Rx #7 tabs dapagliflozin propanediol 10 mg 10 mg PO BID 06/05/24 06/08/24 History tablet (Farxiga) lisinopril 10 mg tablet 40 mg PO DAILY #90 tabs 06/08/24 06/08/24 Rx Laboratory Tests 06/10/24 06/10/24 06/10/24 06:00 16:43 19:51 WBC RBC Hgb Hct MCV MCH MCHC RDW Plt Count MPV Immature Gran % (Auto) Neut % (Auto) Lymph % (Auto) [place] % (Auto) Eos % (Auto) Baso % (Auto) Lymph # (Auto) [place] # (Auto) Eos # (Auto) Baso # (Auto) Abs Immat Gran (auto) Absolute Neuts (auto) Absolute Nucleated RBC Nucleated RBC % PT INR APTT Sodium Potassium Chloride Carbon Dioxide Anion Gap BUN Creatinine Estim Creat Clear Calc Estimated GFR Glucose POC Capillary Glucose 136 H mg/dl 235 H mg/dl (65-105) (65-105) Hemoglobin A1c 7.2 H % (<5.7) Calcium Total Bilirubin AST ALT Alkaline Phosphatase Total Protein Albumin Blood Type Antibody Screen 06/11/24 06/11/24 06/11/24 05:30 07:40 11:04 WBC 10.8 H K/mm3 (4.5-10.0) RBC 3.42 L M/mm3 (4.6-6.20) Hgb 10.1 L g/dL (14.0-18.0) Hct 30.9 L % (42.0-52.0) MCV 90.4 fl (80-100) MCH 29.5 pg (26-34) MCHC 32.7 g/dl (32-36) RDW 12.8 % (11.5-14.5) Plt Count 194 k/mm3 (150-375) MPV 9.5 fl (7.4-10.4) Immature Gran % (Auto) 1.2 H % (0-0.5) Neut % (Auto) 77.5 H % (45.5-73.1) Lymph % (Auto) 9.0 L % (18.3-44.2) [place] % (Auto) 10.8 H % (2.6-8.5) Eos % (Auto) 1.0 %
[2024-06-11] MEDS: ceFAZolin 2 GM/D5W 50 ML 2 GM/50 ML BAG IVPB (13:34)
[2024-06-11] MEDS: BUPIVACAINE/EPINEPHRINE 0.5% 50 ML VIAL 30 ML INFILTRATE (13:59)
--- NOTE | 2024-06-11 14:43 | W.PM.PROC2 ---
Procedure Note - Detailed Date of Procedure 06/11/24 Pre-op Diagnosis Acute Pancreatitis Post-op Diagnosis Other (Chronic cholecystitis) Procedure Performed Laparoscopic Cholecystectomy Surgeon Shadi Iniguez, DO Anesthesia General and Local (0.5% bupivacaine) Indications This is a 63-year-old man who presented to the emergency department with epigastric abdominal pain for several days. He was found to have some elevated liver enzymes and elevated lipase. Imaging showed evidence of acute pancreatitis. He was admitted for further treatment. An MRCP showed evidence of gallbladder sludge or cholelithiasis as well as a blockage in the distal common bile duct consistent with sludge or choledocholithiasis. He then underwent ERCP yesterday with sphincterotomy. Discussions were made with the patient about treatment options and decision was made to proceed with laparoscopic cholecystectomy, possible open. Findings Laparoscopic cholecystectomy was performed. The gallbladder appeared very elongated and dilated. There also pericholecystic adhesions around almost the entire gallbladder. The fundus of the gallbladder was visualized but the remainder appeared adherent with omentum. The cystic duct was somewhat dilated as well. The neck of the gallbladder tapered down to an area where the cystic duct appeared to about 5-7 mm wide. This appeared to be safe away from the common bile duct and therefore the gallbladder was removed at this location. The gallbladder wall showed chronic wall thickening. No other significant abnormalities were noted. The gallbladder was removed and sent to the lab for pathology. Description of Procedure Procedure as well as risks, benefits, and alternatives were discussed with patient. Written consent was obtained and placed in chart prior to procedure. The patient was brought back to surgical suite. Patient was placed in supine position on operating table. Time-out was done to confirm patient and procedure. Patient was then intubated by the anesthesia department. Abdomen was prepped and draped in sterile fashion using chlorhexidine prep. 0.5% bupivacaine with epinephrine was infiltrated at each site of incision. A 5 millimeter incision was made near the umbilicus, and a 5 millimeter Optiview trocar was advanced through the abdominal layers under direct visualization. Once inside the abdominal cavity, carbon dioxide was insufflated to create a pneumoperitoneum. The camera was inserted and the abdomen was inspected. No immediate abnormalities were identified. The patient was placed in reverse Trendelenburg position and rotated slightly to the left. An 11 millimeter incision was made in the subxiphoid region, and an 11 millimeter trocar was inserted under direct visualization. Two 5 millimeter incisions were made in the right upper quadrant, and two 5 millimeter trocars were inserted under direct visualization. The gallbladder was identified and grasped at the fundus and retracted superiorly. It was then grasped at the infundibulum retracted laterally. Careful dissection around the neck of the gallbladder was performed using blunt dissection with a [place] grasper and hook electrocautery. The cystic duct was identified, and a window was created behind it. The cystic artery was also identified and a window was created behind it. The critical view of safety was identified, visualizing the cystic duct running directly into the neck of the gallbladder, and the cystic artery running directly into the wall of the gallbladder. A 5 millimeter clip certified orthotic fitter was then used to place 2 clips proximally and 1 clip distally on both the cystic duct and cystic artery. They were then both transected using endoscopic scissors. Once safely away from the jennifer hepatitis, the gallbladder was dissected free from the liver bed using hook electrocautery. Hemostasis was achieved along the way. The gallbladder was removed completely and then removed thro
[2024-06-11] MEDS: LACTATED RINGERS 1,000 ML 30 ML IV CONT (14:52)
[2024-06-11 15:04] LABS: Glucose Point of Care 162 mg/dl (65-105)
[2024-06-11 16:04] LABS: Glucose Point of Care 151 mg/dl (65-105)
[2024-06-11] MEDS: oxyCODONE/ACETAMINOPHEN (*CRX) 10-325 MG TABLET 1 TAB PO (18:18)
--- NOTE | 2024-06-11 18:29 | WPDGIPROGNO ---
Progress Note: A&P Assessment and Plan (1) Gallstone pancreatitis: Code(s): K85.10 - Biliary acute pancreatitis without necrosis or infection Status: Acute Assessment and Plan: s/p ercp and now lap becky liquid diet, advance per surgery medical support (2) Choledocholithiasis with cholecystitis: Code(s): K80.40 - Calculus of bile duct with cholecystitis, unspecified, without obstruction Status: Acute Assessment and Plan: s/p ercp, no obvious stones but removed sludge (3) Dilation of biliary tract: Code(s): K83.8 - Other specified diseases of biliary tract Status: Acute (4) Elevated liver enzymes: Code(s): R74.8 - Abnormal levels of other serum enzymes Status: Acute Assessment and Plan: trending down (5) Abdominal pain: Code(s): R10.9 - Unspecified abdominal pain Status: Acute Subjective Date/time seen: 06/11/24 18:29 Interval history: s/p lap becky, some pain after surgery but overall comfortable yesterday had ERCP with sphincterotomy Review of Systems Review of Systems: All systems reviewed & are unremarkable except as noted in HPI and below Exam Const: General: comfortable and no acute distress HENMT: Face/Nose/Sinus: Normal nares present Eyes: General: appearance normal, both eyes and all related structures Neck: Neck: no JVD Resp: Auscultation: clear to auscultation bilaterally Cardio: Rate: regular rate Rhythm: regular rhythm GI: Inspection: non-distended GI Palp: Yes Soft to palpation and Yes Tenderness to palpation present (GI) (mild ttp, expected from recent surgery) Skin: General skin exam: normal color Neuro: General: gait normal Speech: normal speech Extrem: General: normal to inspection Psych: Mental Status: mental status grossly normal Objective Data Vital Signs Vital Signs: Vital Signs - 24 hr 06/10/24 20:14 06/10/24 20:00 06/10/24 20:00 Temperature 99.3 F Pulse Rate 74 99 Respiratory Rate 18 Blood Pressure 159/75 H Pulse Oximetry 96 Oxygen Delivery Room Air Oxygen Flow Rate Fraction of Inspired Oxygen 06/11/24 06:00 06/11/24 08:00 06/11/24 12:00 Temperature 98.7 F 99.0 F Pulse Rate 84 84 79 Respiratory Rate 14 14 16 Blood Pressure 145/76 H 148/76 H Pulse Oximetry 95 95 98 Oxygen Delivery Room Air Room Air Oxygen Flow Rate Fraction of Inspired Oxygen 06/11/24 14:52 06/11/24 15:00 06/11/24 15:05 Temperature 98.1 F Pulse Rate 80 84 Respiratory Rate 16 18 Blood Pressure 116/64 134/81 Pulse Oximetry 100 98 96 Oxygen Delivery Simple Face Mask Simple Face Mask Room Air Oxygen Flow Rate 8 8 Fraction of Inspired Oxygen 06/11/24 15:15 06/11/24 15:30 06/11/24 15:37 Temperature 97.5 F L Pulse Rate 82 80 83 Respiratory Rate 19 18 17 Blood Pressure 147/82 H 151/84 H 164/77 H Pulse Oximetry 92 96 96 Oxygen Delivery Room Air Room Air Oxygen Flow Rate Fraction of Inspired Oxygen 06/11/24 15:52 06/11/24 16:22 06/11/24 17:22 Temperature 98.1 F 98.3 F 100.5 F H Pulse Rate 81 84 85 Respiratory Rate 17 17 17 Blood Pressure 161/76 H 164/77 H 134/68 Pulse Oximetry 95 96 96 Oxygen Delivery Oxygen Flow Rate Fraction of Inspired Oxygen Intake/Output Intake/Output: Intake & Output 06/08/24 06/09/24 06/10/24 06/11/24 23:59 23:59 23:59 23:59 Intake Total 1999 1829.2 2590 1570 Output Total 3 950 Balance 1999 1829.2 2587 620 Meds/Results Medications: Active Medications Generic Name Dose Route Start Last Admin Trade Name Freq PRN Reason Stop Dose Admin Acetaminophen 650 mg 06/11/24 15:37 Acetaminophen 325 Mg Tablet PO Q6H PRN Pain Rated 1-3 Allopurinol 100 mg 06/09/24 09:00 06/11/24 09:02 Allopurinol 100 Mg Tablet PO 100 mg DAILY JUNE Administration Bupropion HCl 150 mg 06/09/24 09:00 06/11/24 09:02 Bupropion Hcl Xl (24 Hr) 150 Mg Tabcr PO 150 mg QAM JUNE A
[2024-06-11] MEDS: ACETAMINOPHEN 325 MG TABLET 650 MG PO (19:50)
[2024-06-11] MEDS: clonazePAM (*CRX) 0.5 MG TABLET PO (19:50)
[2024-06-11] MEDS: SENNA/DOCUSATE SODIUM TABLET 1 TAB PO (19:50)
[2024-06-11] MEDS: HYDROmorphone HCL INJ (*CRX) 1 MG/ML SYR IV PUSH (19:51)
[2024-06-11 21:47] LABS: Glucose Point of Care 213 mg/dl (65-105)
[2024-06-12] VITALS (8 sets, daily range): BP systolic 108–157; BP diastolic 69–85; PULSE 72–92; RESP 14–18; TEMP 36.5–37.7; O2SAT 94–99
[2024-06-12] MEDS: SODIUM CHLORIDE 0.9% IV 100 ML 10 ML (00:11)
[2024-06-12] MEDS: oxyCODONE/ACETAMINOPHEN (*CRX) 10-325 MG TABLET 1 TAB PO ×4 (00:16→19:59)
[2024-06-12] MEDS: HYDROmorphone HCL INJ (*CRX) 1 MG/ML SYR IV PUSH ×5 (01:39→23:31)
[2024-06-12] MEDS: PIPERACILLN/TAZ 3.375GM/NS50ML 3.375 GM/50 ML BAG IVPB ×4 (05:09→21:06)
[2024-06-12 05:52] LABS: Basophils Absolute Auto 0.1 K/mm3 (0.0-0.1); Basophils Percent Auto 0.5 % (0.2-1.2); Eosinophils Absolute Auto 0.2 K/mm3 (0-0.3); Eosinophils Percent Auto 1.8 % (0-4.4); Hematocrit 32.7 % (42.0-52.0); Hemoglobin 10.4 g/dL (14.0-18.0); Immature Granulocyte Absolute 0.12 K/mm3 (0.00-0.031); Immature Granulocyte Percent A 1.2 % (0-0.5); Lymphocytes Absolute Auto 1.09 K/mm3 (0.9-3.2); Lymphocytes Percent Auto 10.6 % (18.3-44.2); Mean Corpuscular HGB Conc 31.8 g/dl (32-36); Mean Corpuscular Hemoglobin 30.7 pg (26-34); Mean Corpuscular Volume 96.5 fl (80-100); Mean Platelet Volume 9.7 fl (7.4-10.4); Monocytes Absolute Auto 0.9 K/mm3 (0.1-0.6); Monocytes Percent Auto 8.3 % (2.6-8.5); Neutrophils Percent Auto 77.6 % (45.5-73.1); Platelet Count Result 162 k/mm3 (150-375); Red Blood Count 3.39 M/mm3 (4.6-6.20); White Blood Count 10.3 K/mm3 (4.5-10.0)
[2024-06-12 06:08] LABS: Alanine Aminotransferase 72 U/L (6-50); Albumin Level 3.2 g/dL (3.5-5.1); Alkaline Phosphatase 230 U/L (38-126); Anion Gap 11 mmol/L (4-12); Aspartate Amino Transferase 43 U/L (17-59); Bilirubin,Total 0.8 mg/dL (0.2-1.3); Blood Urea Nitrogen 9 mg/dL (9-20); Calcium 8.3 mg/dL (8.4-10.2); Carbon Dioxide 23 mmol/L (22-30); Chloride 98 mmol/L (98-107); Estimated CRCL calculation 109 ml/min; Estimated Glomerular Filt Rate > 60; Glucose 138 mg/dL (65-110); Potassium 3.3 mmol/L (3.4-5.0); Sodium 132 mmol/L (137-145)
--- NOTE | 2024-06-12 07:39 | WPDANESPN ---
Anes - Prog Note Post-Op Date/Time: 06/12/24 07:39 Cardiovascular status: normal Respiratory status: normal Airway patency: baseline Mental status: baseline Post-Op hydration status: normal Vital Signs: Last Vital Signs Temp 37.7 C H 06/12/24 04:00 Pulse 78 06/12/24 04:00 Resp 18 06/12/24 04:00 BP 124/74 06/12/24 04:00 Pulse Ox 94 06/12/24 04:00 O2 Del Method Room Air 06/11/24 15:30 O2 Flow Rate 8 06/11/24 15:00 FiO2 21 06/11/24 08:00 Pain Score (VAS): 05/11 I/O: Intake & Output 06/11/24 06/11/24 06/12/24 15:59 23:59 07:59 Intake Total 150 170 200 Output Total 200 Balance -50 170 200 Laboratory Tests 06/12/24 05:18 06/12/24 05:18 06/11/24 06/11/24 06/11/24 07:40 11:04 12:16 WBC RBC Hgb Hct MCV MCH MCHC RDW Plt Count MPV Immature Gran % (Auto) Neut % (Auto) Lymph % (Auto) [place] % (Auto) Eos % (Auto) Baso % (Auto) Lymph # (Auto) [place] # (Auto) Eos # (Auto) Baso # (Auto) Abs Immat Gran (auto) Absolute Neuts (auto) Absolute Nucleated RBC Nucleated RBC % Sodium Potassium Chloride Carbon Dioxide Anion Gap BUN Creatinine Estim Creat Clear Calc Estimated GFR Glucose POC Capillary Glucose 199 H 141 H 142 H Calcium Total Bilirubin AST ALT Alkaline Phosphatase Total Protein Albumin 06/11/24 06/11/24 06/11/24 15:03 15:48 20:38 WBC RBC Hgb Hct MCV MCH MCHC RDW Plt Count MPV Immature Gran % (Auto) Neut % (Auto) Lymph % (Auto) [place] % (Auto) Eos % (Auto) Baso % (Auto) Lymph # (Auto) [place] # (Auto) Eos # (Auto) Baso # (Auto) Abs Immat Gran (auto) Absolute Neuts (auto) Absolute Nucleated RBC Nucleated RBC % Sodium Potassium Chloride Carbon Dioxide Anion Gap BUN Creatinine Estim Creat Clear Calc Estimated GFR Glucose POC Capillary Glucose 162 H 151 H 213 H Calcium Total Bilirubin AST ALT Alkaline Phosphatase Total Protein Albumin 06/12/24 05:18 WBC 10.3 H RBC 3.39 L Hgb 10.4 L Hct 32.7 L MCV 96.5 D MCH 30.7 MCHC 31.8 L RDW 13.0 Plt Count 162 MPV 9.7 Immature Gran % (Auto) 1.2 H Neut % (Auto) 77.6 H Lymph % (Auto) 10.6 L [place] % (Auto) 8.3 Eos % (Auto) 1.8 Baso % (Auto) 0.5 Lymph # (Auto) 1.09 [place] # (Auto) 0.9 H Eos # (Auto) 0.2 Baso # (Auto) 0.1 Abs Immat Gran (auto) 0.12 H Absolute Neuts (auto) 8.0 H Absolute Nucleated RBC 0.000 Nucleated RBC % 0.0 Sodium 132 L Potassium 3.3 L Chloride 98 Carbon Dioxide 23 Anion Gap 11 BUN 9 Creatinine 0.70 Estim Creat Clear Calc 109 Estimated GFR > 60 Glucose 138 H POC Capillary Glucose Calcium 8.3 L Total Bilirubin 0.8 AST 43 ALT 72 H Alkaline Phosphatase 230 H Total Protein 6.0 L Albumin 3.2 L Post-procedural complaints: none Patient Feedback: Patient satisfied with anesthetic care.
[2024-06-12] MEDS: FAMOTIDINE 20 MG TABLET PO ×2 (08:07→20:00)
[2024-06-12] MEDS: clonazePAM (*CRX) 0.5 MG TABLET PO ×2 (08:07→13:25)
[2024-06-12] MEDS: TAMSULOSIN HCL 0.4 MG CAPSULE PO (08:07)
[2024-06-12] MEDS: ESCITALOPRAM OXALATE 10 MG TABLET PO (08:07)
[2024-06-12] MEDS: carvediloL 12.5 MG TABLET PO ×2 (08:07→19:59)
[2024-06-12] MEDS: lisinopriL 20 MG TABLET 40 MG PO (08:07)
[2024-06-12] MEDS: buPROPion HCL XL (24 HR) 150 MG TABCR PO (08:07)
[2024-06-12] MEDS: allopurinoL 100 MG TABLET PO (08:07)
[2024-06-12] MEDS: PANTOPRAZOLE SODIUM IV 40 MG VIAL IV PUSH ×2 (08:08→21:04)
[2024-06-12] MEDS: ACETAMINOPHEN 325 MG TABLET 650 MG PO (08:08)
[2024-06-12] MEDS: ENOXAPARIN 40 MG/0.4 ML SYRINGE SUB-Q (08:08)
[2024-06-12 08:16] LABS: Glucose Point of Care 137 mg/dl (65-105)
--- NOTE | 2024-06-12 08:22 | P.PNIM_ITS ---
Progress Note: A&P Assessment and Plan (1) Acute pancreatitis: Code(s): K85.90 - Acute pancreatitis without necrosis or infection, unspecified Status: Acute (2) Type 2 diabetes mellitus without complications: Qualifiers: Diabetes mellitus intermediate insulin use: without intermediate card tender use Qualified Code(s): E11.9 - Type 2 diabetes mellitus without complications Code(s): E11.9 - Type 2 diabetes mellitus without complications Status: Acute (3) Essential (primary) hypertension: Code(s): I10 - Essential (primary) hypertension Status: Acute (4) Constipation: Code(s): K59.00 - Constipation, unspecified Status: Acute (5) Elevated liver enzymes: Code(s): R74.8 - Abnormal levels of other serum enzymes Status: Acute (6) Rash: Code(s): R21 - Rash and other nonspecific skin eruption Status: Acute (7) Dilation of biliary tract: Code(s): K83.8 - Other specified diseases of biliary tract Status: Acute Plan Pancreatitis * elevated Lipase POA * pain control * PPI * Leukocytosis coverage with IV Zosyn * Farxiga D/C Biliary dilation/elevated LFTS * Surgery/GI consulted * USGB ordered showing Mild intrahepatic and extrahepatic biliary duct dilatation, stable from 05/16/2024 and worsened from 12/25/2019 * WBC 14-->12.6->10.3 * Fever 101.4 on 06/08, TMAX overnight 100.5 * Zosyn IV * LFTS down trending * MRCP shows acute interstitial pancreatitis and mild intrahepatic and extrahepatic biliary duct dilatation and gallbladder distention. Sludge and small stones in the common duct and gallbladder. * ERCP completed * POD 1 from lap becky--clear liquid diet, up to chair, incentive spirometer ordered Constipation * Chronic narcotic use * Stool softener--miralax and senna * KUB no ileus * Encourage ambulation Diabetes * Accu-Cheks a.c. HS * sliding scale insulin * D/C Farxiga due to acute pancreatitis * resume patient's home long-acting * Hemoglobin A1c goal less than 7 pending * lipid panel shows triglycerides normal, total cholesterol 89, LDL 41, HDL 23 * Diabetic diet * Optimize Robe inhibitors and statins. * Watch for hypoglycemia/hypoglycemic protocol ordered * Non-anion gap metabolic acidosis (AG 15) 2/2 IV saline infusion Hypertension * mildly hypertensive * resume home medications * BP per unit protocol Rash * itchy rash on arms and legs and abdomen * denies bites or cuts * ? dermatitis * He has outpatient follow up with dermatology HX BPH: resumed flomax HX Anxiety: Resumed home medication clonazepam/Lexapro HX chronic narcotic use Code status: Full code per patient DVT prophylaxis: Lovenox Stress ulcer prophylaxis: Protonix BID PT/OT notes: ambulatory Disposition: Patient was admitted for acute pancreatitis biliary dilation and constipation. ERCP completed and shows biliary sludge, gastritis, and duodenitis. Patient is postop day 1 after laparoscopic cholecystectomy. Advance to low-fat diet per surgery. White count slowly down trending. Did have a low-grade fever of 100.5 overnight. Hoping he will discharge tomorrow. Patient is ambulatory and likely discharge back to home when medically stable. Subjective Date/time seen: 06/12/24 08:22 Interval history: 63 y/o M presents here with nausea, vomiting, and abdominal known with PMH of anxiety, arthritis, BPH, depression, diabetes, diverticulitis, HTN,
--- NOTE | 2024-06-12 08:22 | PM.IMPN ---
Progress Note: A&P Assessment and Plan (1) Acute pancreatitis: Code(s): K85.90 - Acute pancreatitis without necrosis or infection, unspecified Status: Acute (2) Type 2 diabetes mellitus without complications: Qualifiers: Diabetes mellitus fpc insulin use: without exterminator termite use Qualified Code(s): E11.9 - Type 2 diabetes mellitus without complications Code(s): E11.9 - Type 2 diabetes mellitus without complications Status: Acute (3) Essential (primary) hypertension: Code(s): I10 - Essential (primary) hypertension Status: Acute (4) Constipation: Code(s): K59.00 - Constipation, unspecified Status: Acute (5) Elevated liver enzymes: Code(s): R74.8 - Abnormal levels of other serum enzymes Status: Acute (6) Rash: Code(s): R21 - Rash and other nonspecific skin eruption Status: Acute (7) Dilation of biliary tract: Code(s): K83.8 - Other specified diseases of biliary tract Status: Acute Plan Pancreatitis elevated Lipase POA pain control PPI Leukocytosis coverage with IV Zosyn Farxiga D/C Biliary dilation/elevated LFTS Surgery/GI consulted USGB ordered showing Mild intrahepatic and extrahepatic biliary duct dilatation, stable from 05/16/2024 and worsened from 12/25/2019 WBC 14-->12.6->10.3 Fever 101.4 on 06/08, TMAX overnight 100.5 Zosyn IV LFTS down trending MRCP shows acute interstitial pancreatitis and mild intrahepatic and extrahepatic biliary duct dilatation and gallbladder distention. Sludge and small stones in the common duct and gallbladder. ERCP completed POD 1 from lap becky--clear liquid diet, up to chair, incentive spirometer ordered Constipation Chronic narcotic use Stool softener--miralax and senna KUB no ileus Encourage ambulation Diabetes Accu-Cheks a.c. HS sliding scale insulin D/C Farxiga due to acute pancreatitis resume patient's home long-acting Hemoglobin A1c goal less than 7 pending lipid panel shows triglycerides normal, total cholesterol 89, LDL 41, HDL 23 Diabetic diet Optimize Robe inhibitors and statins. Watch for hypoglycemia/hypoglycemic protocol ordered Non-anion gap metabolic acidosis (AG 15) 2/2 IV saline infusion Hypertension mildly hypertensive resume home medications BP per unit protocol Rash itchy rash on arms and legs and abdomen denies bites or cuts ? dermatitis He has outpatient follow up with dermatology HX BPH: resumed flomax HX Anxiety: Resumed home medication clonazepam/Lexapro HX chronic narcotic use Code status: Full code per patient DVT prophylaxis: Lovenox Stress ulcer prophylaxis: Protonix BID PT/OT notes: ambulatory Disposition: Patient was admitted for acute pancreatitis biliary dilation and constipation. ERCP completed and shows biliary sludge, gastritis, and duodenitis. Patient is postop day 1 after laparoscopic cholecystectomy. Advance to low-fat diet per surgery. White count slowly down trending. Did have a low-grade fever of 100.5 overnight. Hoping he will discharge tomorrow. Patient is ambulatory and likely discharge back to home when medically stable. Subjective Date/time seen: 06/12/24 08:22 Interval history: 63 y/o M presents here with nausea, vomiting, and abdominal known with PMH of anxiety, arthritis, BPH, depression, diabetes, diverticulitis, HTN, gout, MARIA ANTONIA, and HLD. 06/10: Patient is seen in bed resting in bed after his ERCP. He states that his pain is slightly improved, 06/10 with pain medications. He has tolerated clear liquids without increased pain, nausea, or vomiting. He reports having an episode of loose stool this morning. I confirmed with him that surgery is planning on [facility] tomorrow. 06/11: No acute events overnight. He is resting in bed awaiting surgery at 1300. 06/12: Postop day 1 after laparoscopic cholecystectomy. States his abdominal pa
[2024-06-12] MEDS: polyethylene glycoL 3350 17 GM POWD.PACK PO (08:43)
[2024-06-12] MEDS: POTASSIUM CHLORIDE 20 MEQ ER TABLET 40 MEQ PO (08:43)
[2024-06-12 11:42] LABS: Glucose Point of Care 233 mg/dl (65-105)
[2024-06-12] MEDS: INSULIN ASPART (*BKC) 100 UNITS/ML SUB-Q (12:33)
--- NOTE | 2024-06-12 13:12 | WPDGIPROGNO ---
Progress Note: A&P Assessment and Plan (1) Gallstone pancreatitis: Code(s): K85.10 - Biliary acute pancreatitis without necrosis or infection Status: Acute Assessment and Plan: s/p ercp and lap becky tolerating diet per surgery medical support (2) Choledocholithiasis with cholecystitis: Code(s): K80.40 - Calculus of bile duct with cholecystitis, unspecified, without obstruction Status: Acute Assessment and Plan: s/p ercp, no obvious stones but removed sludge (3) Elevated liver enzymes: Code(s): R74.8 - Abnormal levels of other serum enzymes Status: Acute Assessment and Plan: trending down (4) Abdominal pain: Code(s): R10.9 - Unspecified abdominal pain Status: Acute Subjective Date/time seen: 06/12/24 13:12 Interval history: tolerating diet, less pain and comfortable mild low grade fever Review of Systems Review of Systems: All systems reviewed & are unremarkable except as noted in HPI and below Exam Const: General: comfortable and no acute distress HENMT: Face/Nose/Sinus: Normal nares present Eyes: General: appearance normal, both eyes and all related structures Neck: Neck: no JVD Resp: Auscultation: clear to auscultation bilaterally Cardio: Rate: regular rate Rhythm: regular rhythm GI: Inspection: non-distended GI Palp: Yes Soft to palpation and Yes Tenderness to palpation present (GI) (mild ttp, expected from recent surgery) Skin: General skin exam: normal color Neuro: General: gait normal Speech: normal speech Extrem: General: normal to inspection Psych: Mental Status: mental status grossly normal Objective Data Vital Signs Vital Signs: Vital Signs - 24 hr 06/11/24 14:52 06/11/24 15:00 06/11/24 15:05 Temperature 98.1 F Pulse Rate 80 84 Respiratory Rate 16 18 Blood Pressure 116/64 134/81 Pulse Oximetry 100 98 96 Oxygen Delivery Simple Face Mask Simple Face Mask Room Air Oxygen Flow Rate 8 8 06/11/24 15:15 06/11/24 15:30 06/11/24 15:37 Temperature 97.5 F L Pulse Rate 82 80 83 Respiratory Rate 19 18 17 Blood Pressure 147/82 H 151/84 H 164/77 H Pulse Oximetry 92 96 96 Oxygen Delivery Room Air Room Air Oxygen Flow Rate 06/11/24 15:52 06/11/24 16:22 06/11/24 17:22 Temperature 98.1 F 98.3 F 100.5 F H Pulse Rate 81 84 85 Respiratory Rate 17 17 17 Blood Pressure 161/76 H 164/77 H 134/68 Pulse Oximetry 95 96 96 Oxygen Delivery Oxygen Flow Rate 06/11/24 19:50 06/11/24 21:22 06/12/24 00:39 Temperature 97.8 F 97.7 F Pulse Rate 75 102 H 72 Respiratory Rate 18 18 Blood Pressure 140/71 108/70 Pulse Oximetry 100 95 Oxygen Delivery Oxygen Flow Rate 06/12/24 04:00 06/12/24 08:00 06/12/24 09:08 Temperature 99.9 F H 97.8 F Pulse Rate 78 Respiratory Rate 18 Blood Pressure 124/74 Pulse Oximetry 94 Oxygen Delivery Room Air Oxygen Flow Rate 06/12/24 09:22 Temperature 98.2 F Pulse Rate 76 Respiratory Rate 17 Blood Pressure 117/85 Pulse Oximetry 98 Oxygen Delivery Oxygen Flow Rate Intake/Output Intake/Output: Intake & Output 06/09/24 06/10/24 06/11/24 06/12/24 23:59 23:59 23:59 23:59 Intake Total 1829.2 2590 1620 1020 Output Total 3 950 Balance 1829.2 2587 670 1020 Meds/Results Medications: Active Medications Generic Name Dose Route Start Last Admin Trade Name Freq PRN Reason Stop Dose Admin Acetaminophen 650 mg 06/11/24 15:37 06/12/24 08:08 Acetaminophen 325 Mg Tablet PO 650 mg Q6H PRN Administration Pain Rated 1-3 Allopurinol 100 mg 06/09/24 09:00 06/12/24 08:07 Allopurinol 100 Mg Tablet PO 100 mg DAILY JUNE Administration Bupropion HCl 150 mg 06/09/24 09:00 06/12/24 08:07 Bupropion Hcl Xl (24 Hr) 150 Mg Tabcr PO 150 mg QAM JUNE Administration Carvedilol 12.5 mg 06/09/24 09:00 06/12/24 08:07 Carvedilol 12.5 Mg Tablet PO 12.5 mg Q12HR JUNE Administration Clonazepam 0
--- NOTE | 2024-06-12 14:58 | PM.PNGS ---
Progress Note: A&P Assessment and Plan (1) Gallstone pancreatitis: Code(s): K85.10 - Biliary acute pancreatitis without necrosis or infection Status: Acute Assessment and Plan: Doing well on POD#1. Had a low grade fever this AM. Continue IV antibiotics. Possibly home tomorrow if remaining afebrile today. (2) Elevated liver enzymes: Code(s): R74.8 - Abnormal levels of other serum enzymes Status: Acute Subjective Subjective Date/Time Seen: 06/12/24 14:58 Interval history: Pain controlled. Tolerating diet. Low grade fever this AM. Exam GI: Inspection: non-distended and incision (intact with glue) GI Palp: Yes Soft to palpation and Yes Tenderness to palpation present (GI) (incisional) Objective Data Vital Signs Vital Signs: Vital Signs - 24 hr 06/11/24 15:00 06/11/24 15:05 06/11/24 15:15 Temperature Pulse Rate 84 82 Respiratory Rate 18 19 Blood Pressure 134/81 147/82 H Pulse Oximetry 98 96 92 Oxygen Delivery Simple Face Mask Room Air Room Air Oxygen Flow Rate 8 06/11/24 15:30 06/11/24 15:37 06/11/24 15:52 Temperature 36.4 C L 36.7 C Pulse Rate 80 83 81 Respiratory Rate 18 17 17 Blood Pressure 151/84 H 164/77 H 161/76 H Pulse Oximetry 96 96 95 Oxygen Delivery Room Air Oxygen Flow Rate 06/11/24 16:22 06/11/24 17:22 06/11/24 19:50 Temperature 36.8 C 38.1 C H Pulse Rate 84 85 75 Respiratory Rate 17 17 Blood Pressure 164/77 H 134/68 Pulse Oximetry 96 96 Oxygen Delivery Oxygen Flow Rate 06/11/24 21:22 06/12/24 00:39 06/12/24 04:00 Temperature 36.6 C 36.5 C 37.7 C H Pulse Rate 102 H 72 78 Respiratory Rate 18 18 18 Blood Pressure 140/71 108/70 124/74 Pulse Oximetry 100 95 94 Oxygen Delivery Oxygen Flow Rate 06/12/24 08:00 06/12/24 09:08 06/12/24 09:22 Temperature 36.6 C 36.8 C Pulse Rate 76 Respiratory Rate 17 Blood Pressure 117/85 Pulse Oximetry 98 Oxygen Delivery Room Air Oxygen Flow Rate 06/12/24 13:22 Temperature 36.8 C Pulse Rate 76 Respiratory Rate 17 Blood Pressure 117/85 Pulse Oximetry 98 Oxygen Delivery Oxygen Flow Rate Intake/Output Intake/Output: Intake & Output 06/09/24 06/10/24 06/11/24 06/12/24 23:59 23:59 23:59 23:59 Intake Total 1829.2 2590 1620 1740 Output Total 3 950 Balance 1829.2 2587 670 1740 Meds/Results Medications: Active Medications Generic Name Dose Route Start Last Admin Trade Name Freq PRN Reason Stop Dose Admin Acetaminophen 650 mg 06/11/24 15:37 06/12/24 08:08 Acetaminophen 325 Mg Tablet PO 650 mg Q6H PRN Administration Pain Rated 1-3 Allopurinol 100 mg 06/09/24 09:00 06/12/24 08:07 Allopurinol 100 Mg Tablet PO 100 mg DAILY JUNE Administration Bupropion HCl 150 mg 06/09/24 09:00 06/12/24 08:07 Bupropion Hcl Xl (24 Hr) 150 Mg Tabcr PO 150 mg QAM JUNE Administration Carvedilol 12.5 mg 06/09/24 09:00 06/12/24 08:07 Carvedilol 12.5 Mg Tablet PO 12.5 mg Q12HR JUNE Administration Clonazepam 0.5 mg 06/08/24 21:47 06/12/24 13:25 Clonazepam (*Crx) 0.5 Mg Tablet PO 0.5 mg TID PRN Administration anxiety Dextrose 12.5 gm 06/08/24 23:39 Dextrose 50% 25 Gm/50 Ml Syringe IV PUSH PRN PRN Hypoglycemia Protocol Enoxaparin Sodium 40 mg 06/09/24 09:00 06/12/24 08:08 Enoxaparin 40 Mg/0.4 Ml Syringe SUB-Q 40 mg DAILY JUNE Administration Escitalopram Oxalate 10 mg 06/09/24 09:00 06/12/24 08:07 Escitalopram Oxalate 10 Mg Tablet PO 10 mg DAILY JUNE Administration Famotidine 20 mg 06/09/24 09:00 06/12/24 08:07 Famotidine 20 Mg Tablet PO 20 mg Q12HR JUNE Administration Fish Oil 2 gm 06/09/24 09:00 06/12/24 08:03 [place] 3 Polyunsat Fatty Acids 1 Gm Cap PO Not Given BID JUNE Glucagon 1 mg 06/08/24 23:39 Glucagon For Inj 1 Mg Vial IM PRN PRN Hypoglycemia Protocol Glucose 15 gm 06/08/24 23:39 Glucose Oral Gel 15
[2024-06-12 15:31] LABS: Glucose Point of Care 181 mg/dl (65-105)
[2024-06-12 19:59] LABS: Glucose Point of Care 196 mg/dl (65-105)
[2024-06-12] MEDS: SENNA/DOCUSATE SODIUM TABLET 1 TAB PO (20:00)
[2024-06-13] MEDS: PIPERACILLN/TAZ 3.375GM/NS50ML 3.375 GM/50 ML BAG IVPB ×4 (02:42→20:24)
[2024-06-13] MEDS: HYDROmorphone HCL INJ (*CRX) 1 MG/ML SYR IV PUSH ×2 (04:04→13:56)
[2024-06-13 05:54] VITALS: BP 170/88; PULSE 92; RESP 14; TEMP 36.7; O2SAT 92
[2024-06-13 07:13] LABS: Basophils Absolute Auto 0.1 K/mm3 (0.0-0.1); Basophils Percent Auto 0.4 % (0.2-1.2); Eosinophils Absolute Auto 0.2 K/mm3 (0-0.3); Eosinophils Percent Auto 1.6 % (0-4.4); Hemoglobin 10.3 g/dL (14.0-18.0); Immature Granulocyte Absolute 0.19 K/mm3 (0.00-0.031); Immature Granulocyte Percent A 1.4 % (0-0.5); Lymphocytes Absolute Auto 1.32 K/mm3 (0.9-3.2); Lymphocytes Percent Auto 9.8 % (18.3-44.2); Mean Corpuscular HGB Conc 32.2 g/dl (32-36); Mean Corpuscular Hemoglobin 29.9 pg (26-34); Mean Platelet Volume 9.5 fl (7.4-10.4); Monocytes Absolute Auto 1.1 K/mm3 (0.1-0.6); Monocytes Percent Auto 8.2 % (2.6-8.5); Neutrophils Absolute Auto 10.5 K/mm3 (1.3-6.7); Neutrophils Percent Auto 78.6 % (45.5-73.1); Platelet Count Result 199 k/mm3 (150-375); Red Blood Count 3.44 M/mm3 (4.6-6.20); White Blood Count 13.4 K/mm3 (4.5-10.0)
[2024-06-13 07:26] LABS: Alanine Aminotransferase 56 U/L (6-50); Albumin Level 3.3 g/dL (3.5-5.1); Alkaline Phosphatase 205 U/L (38-126); Anion Gap 11 mmol/L (4-12); Aspartate Amino Transferase 31 U/L (17-59); Bilirubin,Total 0.7 mg/dL (0.2-1.3); Blood Urea Nitrogen 11 mg/dL (9-20); Calcium 8.4 mg/dL (8.4-10.2); Carbon Dioxide 26 mmol/L (22-30); Chloride 97 mmol/L (98-107); Estimated CRCL calculation 109 ml/min; Estimated Glomerular Filt Rate > 60; Glucose 169 mg/dL (65-110); Potassium 3.1 mmol/L (3.4-5.0); Sodium 134 mmol/L (137-145)
[2024-06-13] MEDS: PANTOPRAZOLE SODIUM IV 40 MG VIAL IV PUSH ×2 (07:45→20:28)
[2024-06-13] MEDS: polyethylene glycoL 3350 17 GM POWD.PACK PO (07:45)
[2024-06-13] MEDS: ENOXAPARIN 40 MG/0.4 ML SYRINGE SUB-Q (07:45)
[2024-06-13] MEDS: buPROPion HCL XL (24 HR) 150 MG TABCR PO (07:46)
[2024-06-13] MEDS: carvediloL 12.5 MG TABLET PO ×2 (07:46→20:23)
[2024-06-13] MEDS: clonazePAM (*CRX) 0.5 MG TABLET PO ×2 (07:46→12:40)
[2024-06-13] MEDS: ESCITALOPRAM OXALATE 10 MG TABLET PO (07:46)
[2024-06-13] MEDS: lisinopriL 20 MG TABLET 40 MG PO (07:46)
[2024-06-13] MEDS: allopurinoL 100 MG TABLET PO (07:46)
[2024-06-13] MEDS: TAMSULOSIN HCL 0.4 MG CAPSULE PO (07:46)
[2024-06-13] MEDS: oxyCODONE/ACETAMINOPHEN (*CRX) 10-325 MG TABLET 1 TAB PO ×3 (07:46→21:40)
[2024-06-13] MEDS: FAMOTIDINE 20 MG TABLET PO ×2 (07:47→20:23)
[2024-06-13 07:49] LABS: Glucose Point of Care 175 mg/dl (65-105)
--- NOTE | 2024-06-13 07:52 | P.PNIM_ITS ---
Progress Note: A&P Assessment and Plan (1) Acute pancreatitis: Code(s): K85.90 - Acute pancreatitis without necrosis or infection, unspecified Status: Acute (2) Type 2 diabetes mellitus without complications: Qualifiers: Diabetes mellitus long-term insulin use: without watermelon inspector use Qualified Code(s): E11.9 - Type 2 diabetes mellitus without complications Code(s): E11.9 - Type 2 diabetes mellitus without complications Status: Acute (3) Essential (primary) hypertension: Code(s): I10 - Essential (primary) hypertension Status: Acute (4) Constipation: Code(s): K59.00 - Constipation, unspecified Status: Acute (5) Elevated liver enzymes: Code(s): R74.8 - Abnormal levels of other serum enzymes Status: Acute (6) Rash: Code(s): R21 - Rash and other nonspecific skin eruption Status: Acute (7) Dilation of biliary tract: Code(s): K83.8 - Other specified diseases of biliary tract Status: Acute Plan Pancreatitis * elevated Lipase POA * pain control * PPI * Leukocytosis coverage with IV Zosyn * Farxiga D/C Biliary dilation/elevated LFTS * Surgery/GI consulted * USGB ordered showing Mild intrahepatic and extrahepatic biliary duct dilatation, stable from 05/16/2024 and worsened from 12/25/2019 * WBC 14-->12.6->10.3-->13.4 * Fever 101.4 on 06/08, TMAX overnight 100.5 * Zosyn IV * LFTS down trending * MRCP shows acute interstitial pancreatitis and mild intrahepatic and extrahepatic biliary duct dilatation and gallbladder distention. Sludge and small stones in the common duct and gallbladder. * ERCP completed * POD 2 from lap becky--low fat diet, up to chair, incentive spirometer ordered * Persistent leukocytosis. Blood cultures pending. Repeat lipase today * May need CT abdomen and pelvis is WBC worsens. Constipation * Chronic narcotic use * Stool softener--miralax and senna * KUB no ileus * Encourage ambulation * 06/12 patient had 2 bowel movements Diabetes * Accu-Cheks a.c. HS * sliding scale insulin * D/C Farxiga due to acute pancreatitis * resume patient's home long-acting * Hemoglobin A1c goal less than 7 pending * lipid panel shows triglycerides normal, total cholesterol 89, LDL 41, HDL 23 * Diabetic diet * Optimize Robe inhibitors and statins. * Watch for hypoglycemia/hypoglycemic protocol ordered Hypertension * mildly hypertensive * resume home medications * BP per unit protocol Rash * itchy rash on arms and legs and abdomen * denies bites or cuts * ? dermatitis * He has outpatient follow up with dermatology HX BPH: resumed flomax HX Anxiety: Resumed home medication clonazepam/Lexapro HX chronic narcotic use Code status: Full code per patient DVT prophylaxis: Lovenox Stress ulcer prophylaxis: Protonix BID PT/OT notes: ambulatory Disposition: Patient was admitted for acute pancreatitis biliary dilation and constipation. ERCP completed and shows biliary sludge, gastritis, and duodenitis. Patient is postop day 2 after laparoscopic cholecystectomy. Advance to low-fat diet per surgery. WBC increased today. Suspect atelectasis. Will get a chest x-ray. Afebrile overnight. Patient is ambulatory and likely discharge back to home when medically stable. Subjective Date/time seen: 06/13/24 07:52 Interval history: 63 y/o M presents here with nausea, vomiting, and abdominal known with PMH of a
--- NOTE | 2024-06-13 07:52 | PM.IMPN ---
Progress Note: A&P Assessment and Plan (1) Acute pancreatitis: Code(s): K85.90 - Acute pancreatitis without necrosis or infection, unspecified Status: Acute (2) Type 2 diabetes mellitus without complications: Qualifiers: Diabetes mellitus intermediate insulin use: without longwall shearer operator use Qualified Code(s): E11.9 - Type 2 diabetes mellitus without complications Code(s): E11.9 - Type 2 diabetes mellitus without complications Status: Acute (3) Essential (primary) hypertension: Code(s): I10 - Essential (primary) hypertension Status: Acute (4) Constipation: Code(s): K59.00 - Constipation, unspecified Status: Acute (5) Elevated liver enzymes: Code(s): R74.8 - Abnormal levels of other serum enzymes Status: Acute (6) Rash: Code(s): R21 - Rash and other nonspecific skin eruption Status: Acute (7) Dilation of biliary tract: Code(s): K83.8 - Other specified diseases of biliary tract Status: Acute Plan Pancreatitis elevated Lipase POA pain control PPI Leukocytosis coverage with IV Zosyn Farxiga D/C Biliary dilation/elevated LFTS Surgery/GI consulted USGB ordered showing Mild intrahepatic and extrahepatic biliary duct dilatation, stable from 05/16/2024 and worsened from 12/25/2019 WBC 14-->12.6->10.3-->13.4 Fever 101.4 on 06/08, TMAX overnight 100.5 Zosyn IV LFTS down trending MRCP shows acute interstitial pancreatitis and mild intrahepatic and extrahepatic biliary duct dilatation and gallbladder distention. Sludge and small stones in the common duct and gallbladder. ERCP completed POD 2 from lap becky--low fat diet, up to chair, incentive spirometer ordered Persistent leukocytosis. Blood cultures pending. Repeat lipase today May need CT abdomen and pelvis is WBC worsens. Constipation Chronic narcotic use Stool softener--miralax and senna KUB no ileus Encourage ambulation 06/12 patient had 2 bowel movements Diabetes Accu-Cheks a.c. HS sliding scale insulin D/C Farxiga due to acute pancreatitis resume patient's home long-acting Hemoglobin A1c goal less than 7 pending lipid panel shows triglycerides normal, total cholesterol 89, LDL 41, HDL 23 Diabetic diet Optimize Robe inhibitors and statins. Watch for hypoglycemia/hypoglycemic protocol ordered Hypertension mildly hypertensive resume home medications BP per unit protocol Rash itchy rash on arms and legs and abdomen denies bites or cuts ? dermatitis He has outpatient follow up with dermatology HX BPH: resumed flomax HX Anxiety: Resumed home medication clonazepam/Lexapro HX chronic narcotic use Code status: Full code per patient DVT prophylaxis: Lovenox Stress ulcer prophylaxis: Protonix BID PT/OT notes: ambulatory Disposition: Patient was admitted for acute pancreatitis biliary dilation and constipation. ERCP completed and shows biliary sludge, gastritis, and duodenitis. Patient is postop day 2 after laparoscopic cholecystectomy. Advance to low-fat diet per surgery. WBC increased today. Suspect atelectasis. Will get a chest x-ray. Afebrile overnight. Patient is ambulatory and likely discharge back to home when medically stable. Subjective Date/time seen: 06/13/24 07:52 Interval history: 63 y/o M presents here with nausea, vomiting, and abdominal known with PMH of anxiety, arthritis, BPH, depression, diabetes, diverticulitis, HTN, gout, MARIA ANTONIA, and HLD. 06/10: Patient is seen in bed resting in bed after his ERCP. He states that his pain is slightly improved, 06/10 with pain medications. He has tolerated clear liquids without increased pain, nausea, or vomiting. He reports having an episode of loose stool this morning. I confirmed with him that surgery is planning on [facility] tomorrow. 06/11: No acute events overnight. He is resting in bed awaiting surgery at 1300. 06/12: Postop day
[2024-06-13 11:22] LABS: Glucose Point of Care 183 mg/dl (65-105)
--- NOTE | 2024-06-13 12:02 | PM.PNGS ---
Progress Note: A&P Assessment and Plan (1) Gallstone pancreatitis: Code(s): K85.10 - Biliary acute pancreatitis without necrosis or infection Status: Acute Assessment and Plan: Still having pain, agree with checking Lipase today. Continue IV antibiotics. Home once pain improved and no further concerns for infection. (2) Elevated liver enzymes: Code(s): R74.8 - Abnormal levels of other serum enzymes Status: Acute Subjective Subjective Date/Time Seen: 06/13/24 12:02 Interval history: Still experiencing upper abdominal pain. No more fevers. Tolerating low fat diet. Exam GI: Inspection: non-distended and incision (intact with glue) GI Palp: Yes Soft to palpation and Yes Tenderness to palpation present (GI) (incisional) Objective Data Vital Signs Vital Signs: Vital Signs - 24 hr 06/12/24 13:22 06/12/24 15:30 06/12/24 20:46 Temperature 36.8 C 36.7 C 37.3 C Pulse Rate 76 80 Respiratory Rate 17 17 Blood Pressure 117/85 116/69 Pulse Oximetry 98 96 Oxygen Delivery 06/12/24 21:01 06/12/24 20:00 06/13/24 05:54 Temperature 36.9 C 36.7 C Pulse Rate 92 92 Respiratory Rate 14 14 Blood Pressure 157/82 H 170/88 H Pulse Oximetry 99 92 Oxygen Delivery Room Air 06/13/24 08:00 Temperature Pulse Rate Respiratory Rate Blood Pressure Pulse Oximetry Oxygen Delivery Room Air Intake/Output Intake/Output: Intake & Output 06/10/24 06/11/24 06/12/24 06/13/24 23:59 23:59 23:59 23:59 Intake Total 2590 1620 2220 836 Output Total 3 950 Balance 2587 670 2220 836 Meds/Results Medications: Active Medications Generic Name Dose Route Start Last Admin Trade Name Freq PRN Reason Stop Dose Admin Acetaminophen 650 mg 06/11/24 15:37 06/12/24 08:08 Acetaminophen 325 Mg Tablet PO 650 mg Q6H PRN Administration Pain Rated 1-3 Allopurinol 100 mg 06/09/24 09:00 06/13/24 07:46 Allopurinol 100 Mg Tablet PO 100 mg DAILY JUNE Administration Bupropion HCl 150 mg 06/09/24 09:00 06/13/24 07:46 Bupropion Hcl Xl (24 Hr) 150 Mg Tabcr PO 150 mg QAM JUNE Administration Carvedilol 12.5 mg 06/09/24 09:00 06/13/24 07:46 Carvedilol 12.5 Mg Tablet PO 12.5 mg Q12HR JUNE Administration Clonazepam 0.5 mg 06/08/24 21:47 06/13/24 07:46 Clonazepam (*Crx) 0.5 Mg Tablet PO 0.5 mg TID PRN Administration anxiety Dextrose 12.5 gm 06/08/24 23:39 Dextrose 50% 25 Gm/50 Ml Syringe IV PUSH PRN PRN Hypoglycemia Protocol Enoxaparin Sodium 40 mg 06/09/24 09:00 06/13/24 07:45 Enoxaparin 40 Mg/0.4 Ml Syringe SUB-Q 40 mg DAILY JUNE Administration Escitalopram Oxalate 10 mg 06/09/24 09:00 06/13/24 07:46 Escitalopram Oxalate 10 Mg Tablet PO 10 mg DAILY JUNE Administration Famotidine 20 mg 06/09/24 09:00 06/13/24 07:47 Famotidine 20 Mg Tablet PO 20 mg Q12HR JUNE Administration Glucagon 1 mg 06/08/24 23:39 Glucagon For Inj 1 Mg Vial IM PRN PRN Hypoglycemia Protocol Glucose 15 gm 06/08/24 23:39 Glucose Oral Gel 15 Gm Of Glucse In 37.5 Gm Tube PO PRN PRN Hypoglycemia Protocol Hydromorphone HCl 1 mg 06/11/24 15:37 06/13/24 04:04 Hydromorphone Hcl Inj (*Crx) 1 Mg/Ml Syr IV PUSH 1 mg Q2H PRN Administration Breakthrough Pain Rated 7-10 or NPO Hydromorphone HCl 0.5 mg 06/11/24 15:37 Hydromorphone Hcl Inj (*Crx) 1 Mg/Ml Syr IV PUSH Q2H PRN Breakthrough Pain Rated 4-6 or NPO Dextrose 1,000 mls @ 100 mls/hr 06/08/24 23:39 Dextrose 5% 1,000 Ml IVPB PRN PRN Hypoglycemia Protocol Piperacillin/Tazobactam/Dextrose 3.375 gm in 50 mls @ 100 mls/hr 06/10/24 09:00 06/13/24 08:15 Zosyn 3.375 Gm/Ns 50 Ml IVPB Infused Q6H JUNE Infusion Insulin Aspart 3 - 6 units 06/09/24 08:00 06/13/24 11:28 Insulin Aspart (*Bkc) 100 Units/Ml SUB-Q Not Given TIDWM [facility] Protocol Lisinopril 40 mg
[2024-06-13 12:30] LABS: Lipase 125 U/L (23-300)
[2024-06-13] MEDS: POTASSIUM CHLORIDE 20 MEQ ER TABLET 40 MEQ PO (12:40)
[2024-06-13 14:00] VITALS: BP 136/74; PULSE 88; RESP 20; TEMP 37; O2SAT 97
[2024-06-13] MEDS: ACETAMINOPHEN 325 MG TABLET 650 MG PO (14:40)
[2024-06-13 16:59] LABS: Glucose Point of Care 238 mg/dl (65-105)
[2024-06-13] MEDS: INSULIN ASPART (*BKC) 100 UNITS/ML SUB-Q (17:30)
[2024-06-13 19:49] LABS: Glucose Point of Care 275 mg/dl (65-105)
[2024-06-13 20:23] VITALS: PULSE 81
[2024-06-13 20:48] VITALS: BP 144/77; PULSE 76; RESP 14; TEMP 36.4; O2SAT 98
[2024-06-14] MEDS: PIPERACILLN/TAZ 3.375GM/NS50ML 3.375 GM/50 ML BAG IVPB ×2 (03:16→09:18)
[2024-06-14] MEDS: HYDROmorphone HCL INJ (*CRX) 1 MG/ML SYR IV PUSH ×2 (03:17→10:48)
[2024-06-14] MEDS: ONDANSETRON INJ 4 MG/2 ML VIAL IV PUSH (03:28)
--- NOTE | 2024-06-14 03:51 | PC.NURSE ---
Pt is constantly asking for pain meds. Pt claims pain is 10/10 despite not displaying any signs or symptoms of pain. Pt given pain meds within 4 minutes of when they are available; however, pt calls demanding more pain meds within 2 hours of previous administration claiming it has been more than 6 hours since last administration. Pt repeatedly states that the pain is not surgery or pancreatic related but is limited to his chronic pain located in his lower back and shoulder. Pt is not having any pain in his abdomen. Breakthrough pain med administered but pt continues to call demanding more and more pain meds.
[2024-06-14 05:53] VITALS: BP 148/79; PULSE 83; RESP 12; TEMP 36.8; O2SAT 92
[2024-06-14 07:25] LABS: Glucose Point of Care 178 mg/dl (65-105)
--- NOTE | 2024-06-14 07:33 | P.PNIM_ITS ---
Progress Note: A&P Assessment and Plan (1) Acute pancreatitis: Code(s): K85.90 - Acute pancreatitis without necrosis or infection, unspecified Status: Acute (2) Type 2 diabetes mellitus without complications: Qualifiers: Diabetes mellitus residential insulin use: without superintendent container terminal use Qualified Code(s): E11.9 - Type 2 diabetes mellitus without complications Code(s): E11.9 - Type 2 diabetes mellitus without complications Status: Acute (3) Essential (primary) hypertension: Code(s): I10 - Essential (primary) hypertension Status: Acute (4) Constipation: Code(s): K59.00 - Constipation, unspecified Status: Acute (5) Elevated liver enzymes: Code(s): R74.8 - Abnormal levels of other serum enzymes Status: Acute (6) Rash: Code(s): R21 - Rash and other nonspecific skin eruption Status: Acute (7) Dilation of biliary tract: Code(s): K83.8 - Other specified diseases of biliary tract Status: Acute Plan Pancreatitis * elevated Lipase POA * pain control * PPI * Leukocytosis coverage with IV Zosyn * Farxiga D/C Biliary dilation/elevated LFTS * Surgery/GI consulted * USGB ordered showing Mild intrahepatic and extrahepatic biliary duct dilatation, stable from 05/16/2024 and worsened from 12/25/2019 * WBC 14-->12.6->10.3-->13.4 * Fever 101.4 on 06/08, TMAX overnight 100.5 * Zosyn IV * LFTS down trending * MRCP shows acute interstitial pancreatitis and mild intrahepatic and extrahepatic biliary duct dilatation and gallbladder distention. Sludge and small stones in the common duct and gallbladder. * ERCP completed * POD 3 from lap becky--low fat diet, up to chair, incentive spirometer ordered * Ecchymosis to his RUQ, umbilicus, and right flank. Labs have been ordered. Will CT him if significant drop in his H/H. Hold on his lovenox for now. If his H/H and WBC are stable (resolving) anticipate discharging him home today. Constipation * Chronic narcotic use * Stool softener--miralax and senna * KUB no ileus * Encourage ambulation * 06/12 patient had 2 bowel movements Diabetes * Accu-Cheks a.c. HS * sliding scale insulin * D/C Farxiga due to acute pancreatitis * resume patient's home long-acting * Hemoglobin A1c goal less than 7 pending * lipid panel shows triglycerides normal, total cholesterol 89, LDL 41, HDL 23 * Diabetic diet * Optimize Robe inhibitors and statins. * Watch for hypoglycemia/hypoglycemic protocol ordered Hypertension * mildly hypertensive * resume home medications * BP per unit protocol Rash * itchy rash on arms and legs and abdomen * denies bites or cuts * ? dermatitis * He has outpatient follow up with dermatology HX BPH: resumed flomax HX Anxiety: Resumed home medication clonazepam/Lexapro HX chronic narcotic use Code status: Full code per patient DVT prophylaxis: Lovenox Stress ulcer prophylaxis: Protonix BID PT/OT notes: ambulatory Disposition: Patient was admitted for acute pancreatitis biliary dilation and constipation. ERCP completed and shows biliary sludge, gastritis, and duodenitis. Patient is postop day 2 after laparoscopic cholecystectomy. Advance to low-fat diet per surgery. WBC increased today. Suspect atelectasis. Will get a chest x-ray. Afebrile overnight. Patient is ambulatory and likely discharge back to home when medically stable. Subjective Date/time seen: 06/14/24 07:33
--- NOTE | 2024-06-14 07:33 | PM.IMPN ---
Progress Note: A&P Assessment and Plan (1) Acute pancreatitis: Code(s): K85.90 - Acute pancreatitis without necrosis or infection, unspecified Status: Acute (2) Type 2 diabetes mellitus without complications: Qualifiers: Diabetes mellitus fci insulin use: without terminal manager use Qualified Code(s): E11.9 - Type 2 diabetes mellitus without complications Code(s): E11.9 - Type 2 diabetes mellitus without complications Status: Acute (3) Essential (primary) hypertension: Code(s): I10 - Essential (primary) hypertension Status: Acute (4) Constipation: Code(s): K59.00 - Constipation, unspecified Status: Acute (5) Elevated liver enzymes: Code(s): R74.8 - Abnormal levels of other serum enzymes Status: Acute (6) Rash: Code(s): R21 - Rash and other nonspecific skin eruption Status: Acute (7) Dilation of biliary tract: Code(s): K83.8 - Other specified diseases of biliary tract Status: Acute Plan Pancreatitis elevated Lipase POA pain control PPI Leukocytosis coverage with IV Zosyn Farxiga D/C Biliary dilation/elevated LFTS Surgery/GI consulted USGB ordered showing Mild intrahepatic and extrahepatic biliary duct dilatation, stable from 05/16/2024 and worsened from 12/25/2019 WBC 14-->12.6->10.3-->13.4 Fever 101.4 on 06/08, TMAX overnight 100.5 Zosyn IV LFTS down trending MRCP shows acute interstitial pancreatitis and mild intrahepatic and extrahepatic biliary duct dilatation and gallbladder distention. Sludge and small stones in the common duct and gallbladder. ERCP completed POD 3 from lap becky--low fat diet, up to chair, incentive spirometer ordered Ecchymosis to his RUQ, umbilicus, and right flank. Labs have been ordered. Will CT him if significant drop in his H/H. Hold on his lovenox for now. If his H/H and WBC are stable (resolving) anticipate discharging him home today. Constipation Chronic narcotic use Stool softener--miralax and senna KUB no ileus Encourage ambulation 06/12 patient had 2 bowel movements Diabetes Accu-Cheks a.c. HS sliding scale insulin D/C Farxiga due to acute pancreatitis resume patient's home long-acting Hemoglobin A1c goal less than 7 pending lipid panel shows triglycerides normal, total cholesterol 89, LDL 41, HDL 23 Diabetic diet Optimize Robe inhibitors and statins. Watch for hypoglycemia/hypoglycemic protocol ordered Hypertension mildly hypertensive resume home medications BP per unit protocol Rash itchy rash on arms and legs and abdomen denies bites or cuts ? dermatitis He has outpatient follow up with dermatology HX BPH: resumed flomax HX Anxiety: Resumed home medication clonazepam/Lexapro HX chronic narcotic use Code status: Full code per patient DVT prophylaxis: Lovenox Stress ulcer prophylaxis: Protonix BID PT/OT notes: ambulatory Disposition: Patient was admitted for acute pancreatitis biliary dilation and constipation. ERCP completed and shows biliary sludge, gastritis, and duodenitis. Patient is postop day 2 after laparoscopic cholecystectomy. Advance to low-fat diet per surgery. WBC increased today. Suspect atelectasis. Will get a chest x-ray. Afebrile overnight. Patient is ambulatory and likely discharge back to home when medically stable. Subjective Date/time seen: 06/14/24 07:33 Interval history: 63 y/o M presents here with nausea, vomiting, and abdominal known with PMH of anxiety, arthritis, BPH, depression, diabetes, diverticulitis, HTN, gout, MARIA ANTONIA, and HLD. 06/10: Patient is seen in bed resting in bed after his ERCP. He states that his pain is slightly improved, 06/10 with pain medications. He has tolerated clear liquids without increased pain, nausea, or vomiting. He reports having an episode of loose stool this morning. I confirmed with him that [facility]
[2024-06-14] MEDS: allopurinoL 100 MG TABLET PO (09:17)
[2024-06-14] MEDS: ESCITALOPRAM OXALATE 10 MG TABLET PO (09:17)
[2024-06-14] MEDS: lisinopriL 20 MG TABLET 40 MG PO (09:17)
[2024-06-14] MEDS: TAMSULOSIN HCL 0.4 MG CAPSULE PO (09:17)
[2024-06-14] MEDS: FAMOTIDINE 20 MG TABLET PO (09:17)
[2024-06-14] MEDS: PANTOPRAZOLE SODIUM IV 40 MG VIAL IV PUSH (09:18)
[2024-06-14] MEDS: polyethylene glycoL 3350 17 GM POWD.PACK PO (09:18)
[2024-06-14] MEDS: carvediloL 12.5 MG TABLET PO (09:18)
[2024-06-14] MEDS: buPROPion HCL XL (24 HR) 150 MG TABCR PO (09:18)
[2024-06-14 11:20] LABS: Basophils Percent Auto 0.4 % (0.2-1.2); Eosinophils Absolute Auto 0.2 K/mm3 (0-0.3); Eosinophils Percent Auto 1.4 % (0-4.4); Hematocrit 29.6 % (42.0-52.0); Hemoglobin 9.8 g/dL (14.0-18.0); Immature Granulocyte Absolute 0.15 K/mm3 (0.00-0.031); Immature Granulocyte Percent A 1.4 % (0-0.5); Lymphocytes Absolute Auto 1.03 K/mm3 (0.9-3.2); Lymphocytes Percent Auto 9.5 % (18.3-44.2); Mean Corpuscular HGB Conc 33.1 g/dl (32-36); Mean Corpuscular Hemoglobin 30.1 pg (26-34); Mean Corpuscular Volume 90.8 fl (80-100); Mean Platelet Volume 8.9 fl (7.4-10.4); Monocytes Absolute Auto 0.9 K/mm3 (0.1-0.6); Monocytes Percent Auto 8.6 % (2.6-8.5); Neutrophils Absolute Auto 8.6 K/mm3 (1.3-6.7); Neutrophils Percent Auto 78.7 % (45.5-73.1); Platelet Count Result 208 k/mm3 (150-375); Red Blood Count 3.26 M/mm3 (4.6-6.20); Red Cell Distribution Width 12.7 % (11.5-14.5); White Blood Count 10.9 K/mm3 (4.5-10.0)
[2024-06-14 11:24] LABS: Glucose Point of Care 172 mg/dl (65-105)
[2024-06-14 11:30] LABS: INR 1.1; Prothrombin Time 14.1 Seconds (11.1-14.7)
[2024-06-14 11:31] LABS: Partial Thromboplastin Time 38.6 Seconds (22.3-36.8)
[2024-06-14 11:38] LABS: Alanine Aminotransferase 51 U/L (6-50); Albumin Level 3.4 g/dL (3.5-5.1); Alkaline Phosphatase 190 U/L (38-126); Anion Gap 9 mmol/L (4-12); Aspartate Amino Transferase 35 U/L (17-59); Bilirubin,Total 0.6 mg/dL (0.2-1.3); Blood Urea Nitrogen 7 mg/dL (9-20); Calcium 8.4 mg/dL (8.4-10.2); Carbon Dioxide 32 mmol/L (22-30); Chloride 94 mmol/L (98-107); Estimated CRCL calculation 109 ml/min; Estimated Glomerular Filt Rate > 60; Glucose 169 mg/dL (65-110); Potassium 3.1 mmol/L (3.4-5.0); Sodium 135 mmol/L (137-145)
[2024-06-14 14:00] VITALS: BP 143/70; PULSE 78; RESP 20; TEMP 36.5; O2SAT 95
--- NOTE | 2024-06-14 14:32 | PM.PNGS ---
Progress Note: A&P Assessment and Plan (1) Gallstone pancreatitis: Code(s): K85.10 - Biliary acute pancreatitis without necrosis or infection Status: Acute Assessment and Plan: Continues to improve. Surgically stable for discharge. Follow up instructions discussed with patient. Follow up in 2 weeks. Subjective Subjective Date/Time Seen: 06/14/24 14:32 Interval history: Feeling better today. No fevers. Pain controlled. Exam GI: Inspection: non-distended, incision (intact with glue) and other (ecchymosis along right incisions and abdomen) GI Palp: Yes Soft to palpation, No Tenderness to palpation present (GI) and No Guarding due to palpation present (GI) Objective Data Vital Signs Vital Signs: Vital Signs - 24 hr 06/13/24 20:23 06/13/24 20:48 06/13/24 20:20 Temperature 36.4 C L Pulse Rate 81 76 Respiratory Rate 14 Blood Pressure 144/77 H Pulse Oximetry 98 Oxygen Delivery Room Air 06/14/24 05:53 Temperature 36.8 C Pulse Rate 83 Respiratory Rate 12 Blood Pressure 148/79 H Pulse Oximetry 92 Oxygen Delivery Intake/Output Intake/Output: Intake & Output 06/11/24 06/12/24 06/13/24 06/14/24 23:59 23:59 23:59 23:59 Intake Total 1620 2220 1824 772 Output Total 950 Balance 670 2220 1824 772 Meds/Results Medications: Active Medications Generic Name Dose Route Start Last Admin Trade Name Freq PRN Reason Stop Dose Admin Acetaminophen 650 mg 06/11/24 15:37 06/13/24 14:40 Acetaminophen 325 Mg Tablet PO 650 mg Q6H PRN Administration Pain Rated 1-3 Allopurinol 100 mg 06/09/24 09:00 06/14/24 09:17 Allopurinol 100 Mg Tablet PO 100 mg DAILY JUNE Administration Bupropion HCl 150 mg 06/09/24 09:00 06/14/24 09:18 Bupropion Hcl Xl (24 Hr) 150 Mg Tabcr PO 150 mg QAM JUNE Administration Carvedilol 12.5 mg 06/09/24 09:00 06/14/24 09:18 Carvedilol 12.5 Mg Tablet PO 12.5 mg Q12HR JUNE Administration Clonazepam 0.5 mg 06/08/24 21:47 06/13/24 12:40 Clonazepam (*Crx) 0.5 Mg Tablet PO 0.5 mg TID PRN Administration anxiety Dextrose 12.5 gm 06/08/24 23:39 Dextrose 50% 25 Gm/50 Ml Syringe IV PUSH PRN PRN Hypoglycemia Protocol Enoxaparin Sodium 40 mg 06/09/24 09:00 06/13/24 07:45 Enoxaparin 40 Mg/0.4 Ml Syringe SUB-Q 40 mg DAILY JUNE Administration Escitalopram Oxalate 10 mg 06/09/24 09:00 06/14/24 09:17 Escitalopram Oxalate 10 Mg Tablet PO 10 mg DAILY JUNE Administration Famotidine 20 mg 06/09/24 09:00 06/14/24 09:17 Famotidine 20 Mg Tablet PO 20 mg Q12HR JUNE Administration Glucagon 1 mg 06/08/24 23:39 Glucagon For Inj 1 Mg Vial IM PRN PRN Hypoglycemia Protocol Glucose 15 gm 06/08/24 23:39 Glucose Oral Gel 15 Gm Of Glucse In 37.5 Gm Tube PO PRN PRN Hypoglycemia Protocol Hydromorphone HCl 1 mg 06/11/24 15:37 06/14/24 10:48 Hydromorphone Hcl Inj (*Crx) 1 Mg/Ml Syr IV PUSH 1 mg Q2H PRN Administration Breakthrough Pain Rated 7-10 or NPO Hydromorphone HCl 0.5 mg 06/11/24 15:37 Hydromorphone Hcl Inj (*Crx) 1 Mg/Ml Syr IV PUSH Q2H PRN Breakthrough Pain Rated 4-6 or NPO Dextrose 1,000 mls @ 100 mls/hr 06/08/24 23:39 Dextrose 5% 1,000 Ml IVPB PRN PRN Hypoglycemia Protocol Piperacillin/Tazobactam/Dextrose 3.375 gm in 50 mls @ 100 mls/hr 06/10/24 09:00 06/14/24 09:18 Zosyn 3.375 Gm/Ns 50 Ml IVPB 100 mls/hr Q6H JUNE Administration Insulin Aspart 3 - 6 units 06/09/24 08:00 06/14/24 08:41 Insulin Aspart (*Bkc) 100 Units/Ml SUB-Q Not Given TIDWM JUNE Protocol Lisinopril 40 mg 06/09/24 09:00 06/14/24 09:17 Lisinopril 20 Mg Tablet PO 40 mg DAILY JUNE Administration Meloxicam 15 mg 06/09/24 09:00 Meloxicam 7.5 Mg Tablet PO DAILY JUNE Naloxone HCl 0.1 mg 06/11/24 15:37 Naloxone Hcl 0.4 Mg/Ml Vial IV PUSH Q2M PRN Opia
--- NOTE | 2024-06-14 14:50 | P.DS_ITS ---
DS: Admitting Diagnosis Discharge Date 06/14 Admitting Diagnosis Abdominal pain DS: Discharge Diagnosis Discharge Diagnosis (1) Acute pancreatitis: Code(s): K85.90 - Acute pancreatitis without necrosis or infection, unspecified Status: Acute (2) Type 2 diabetes mellitus without complications: Qualifiers: Diabetes mellitus halfway insulin use: without halfway use Qualified Code(s): E11.9 - Type 2 diabetes mellitus without complications Code(s): E11.9 - Type 2 diabetes mellitus without complications Status: Acute (3) Essential (primary) hypertension: Code(s): I10 - Essential (primary) hypertension Status: Acute (4) Constipation: Code(s): K59.00 - Constipation, unspecified Status: Acute (5) Elevated liver enzymes: Code(s): R74.8 - Abnormal levels of other serum enzymes Status: Acute (6) Rash: Code(s): R21 - Rash and other nonspecific skin eruption Status: Acute (7) Dilation of biliary tract: Code(s): K83.8 - Other specified diseases of biliary tract Status: Acute Plan Pancreatitis * elevated Lipase POA * pain control * PPI * Leukocytosis coverage with IV Zosyn * Farxiga D/C Biliary dilation/elevated LFTS * Surgery/GI consulted * USGB ordered showing Mild intrahepatic and extrahepatic biliary duct dilatati on, stable from 05/16/2024 and worsened from 12/25/2019 * WBC 14-->12.6->10.3-->13.4 * Fever 101.4 on 06/08, TMAX overnight 100.5 * Zosyn IV * LFTS down trending * MRCP shows acute interstitial pancreatitis and mild intrahepatic and extrahepatic biliary duct dilatation and gallbladder distention. Sludge and small stones in the common duct and gallbladder. * ERCP completed * POD 3 from lap becky--low fat diet, up to chair, incentive spirometer ordered * Ecchymosis to his RUQ, umbilicus, and right flank. Labs have been ordered. Will CT him if significant drop in his H/H. Hold on his lovenox for now. If his H/H and WBC are stable (resolving) anticipate discharging him home today. Constipation * Chronic narcotic use * Stool softener--miralax and senna * KUB no ileus * Encourage ambulation * 06/12 patient had 2 bowel movements Diabetes * Accu-Cheks a.c. HS * sliding scale insulin * D/C Farxiga due to acute pancreatitis * resume patient's home long-acting * Hemoglobin A1c goal less than 7 pending * lipid panel shows triglycerides normal, total cholesterol 89, LDL 41, HDL 23 * Diabetic diet * Optimize Robe inhibitors and statins. * Watch for hypoglycemia/hypoglycemic protocol ordered Hypertension * mildly hypertensive * resume home medications * BP per unit protocol Rash * itchy rash on arms and legs and abdomen * denies bites or cuts * ? dermatitis * He has outpatient follow up with dermatology HX BPH: resumed flomax HX Anxiety: Resumed home medication clonazepam/Lexapro HX chronic narcotic use Code status: Full code per patient DVT prophylaxis: Lovenox Stress ulcer prophylaxis: Protonix BID PT/OT notes: ambulatory Disposition: Patient was admitted for acute pancreatitis biliary dilation and constipation. ERCP completed and shows biliary sludge, gastritis, and duodenitis. Patient is postop day 2 after laparoscopic cholecystectomy. Advance to low-fat diet per surgery. WBC increased today. Suspect atelectasis. Will get a chest x-ray. Afebrile overnight. Patient is ambulatory and likely discharge back to home
--- NOTE | 2024-06-14 14:50 | PM.DS ---
DS: Admitting Diagnosis Discharge Date 06/14 Admitting Diagnosis Abdominal pain DS: Discharge Diagnosis Discharge Diagnosis (1) Acute pancreatitis: Code(s): K85.90 - Acute pancreatitis without necrosis or infection, unspecified Status: Acute (2) Type 2 diabetes mellitus without complications: Qualifiers: Diabetes mellitus penitentiary insulin use: without penitentiary use Qualified Code(s): E11.9 - Type 2 diabetes mellitus without complications Code(s): E11.9 - Type 2 diabetes mellitus without complications Status: Acute (3) Essential (primary) hypertension: Code(s): I10 - Essential (primary) hypertension Status: Acute (4) Constipation: Code(s): K59.00 - Constipation, unspecified Status: Acute (5) Elevated liver enzymes: Code(s): R74.8 - Abnormal levels of other serum enzymes Status: Acute (6) Rash: Code(s): R21 - Rash and other nonspecific skin eruption Status: Acute (7) Dilation of biliary tract: Code(s): K83.8 - Other specified diseases of biliary tract Status: Acute Plan Pancreatitis elevated Lipase POA pain control PPI Leukocytosis coverage with IV Zosyn Farxiga D/C Biliary dilation/elevated LFTS Surgery/GI consulted USGB ordered showing Mild intrahepatic and extrahepatic biliary duct dilatation, stable from 05/16/2024 and worsened from 12/25/2019 WBC 14-->12.6->10.3-->13.4 Fever 101.4 on 06/08, TMAX overnight 100.5 Zosyn IV LFTS down trending MRCP shows acute interstitial pancreatitis and mild intrahepatic and extrahepatic biliary duct dilatation and gallbladder distention. Sludge and small stones in the common duct and gallbladder. ERCP completed POD 3 from lap becky--low fat diet, up to chair, incentive spirometer ordered Ecchymosis to his RUQ, umbilicus, and right flank. Labs have been ordered. Will CT him if significant drop in his H/H. Hold on his lovenox for now. If his H/H and WBC are stable (resolving) anticipate discharging him home today. Constipation Chronic narcotic use Stool softener--miralax and senna KUB no ileus Encourage ambulation 06/12 patient had 2 bowel movements Diabetes Accu-Cheks a.c. HS sliding scale insulin D/C Farxiga due to acute pancreatitis resume patient's home long-acting Hemoglobin A1c goal less than 7 pending lipid panel shows triglycerides normal, total cholesterol 89, LDL 41, HDL 23 Diabetic diet Optimize Robe inhibitors and statins. Watch for hypoglycemia/hypoglycemic protocol ordered Hypertension mildly hypertensive resume home medications BP per unit protocol Rash itchy rash on arms and legs and abdomen denies bites or cuts ? dermatitis He has outpatient follow up with dermatology HX BPH: resumed flomax HX Anxiety: Resumed home medication clonazepam/Lexapro HX chronic narcotic use Code status: Full code per patient DVT prophylaxis: Lovenox Stress ulcer prophylaxis: Protonix BID PT/OT notes: ambulatory Disposition: Patient was admitted for acute pancreatitis biliary dilation and constipation. ERCP completed and shows biliary sludge, gastritis, and duodenitis. Patient is postop day 2 after laparoscopic cholecystectomy. Advance to low-fat diet per surgery. WBC increased today. Suspect atelectasis. Will get a chest x-ray. Afebrile overnight. Patient is ambulatory and likely discharge back to home when medically stable. DS: Summary Hospital Course Reason for hospitalization: Biliary pancreatitis, status post laparoscopic cholecystectomy Hospital Course: 63-year-old male with a past medical history significant for anxiety, arthritis, BPH, depression, diabetes, diverticulitis, HTN, gout, MARIA ANTONIA, and HLD. He was found to have pancreatitis thought to be secondary from biliary colic. He underwent laparoscopic cholecystectomy with Dr Zarate on 06/11. His stay was prolonged as he had a persiste
== END 2024-06-14 15:50 | disposition home or self-care (01) | DRG 418 ==
LOC: ANHED 18:57 → ANH3MEDSUR 19:15
PROVIDERS: Family Medicine; Internal Medicine Gastroenterology; Nurse Practitioner Acute Care; Nurse Practitioner Family; Surgery; Admitting Provider Student in an Organized Health Care Education/Training Program; Emergency Provider Emergency Medicine; PCP Family Medicine; Visit Provider Nurse Practitioner Acute Care
PROC: 0FCC8ZZ Extirpation of Matter from Ampulla of Vater, Via Natural or Artificial Opening Endoscopic (ICD-10-PCS; CPT 43260; principal; 2024-06-10 16:30)
PROC: 0FT44ZZ Resection of Gallbladder, Percutaneous Endoscopic Approach (ICD-10-PCS; CPT 47562; principal; 2024-06-11 13:00)
DX: K85.10 Biliary acute pancreatitis without necrosis or infection (principal); K80.44 Calculus of bile duct with chronic cholecystitis without obstruction; K82.8 Other specified diseases of gallbladder; I12.9 Hypertensive chronic kidney disease with stage 1 through stage 4 chronic kidney disease, or unspecified chronic kidney disease; N18.9 Chronic kidney disease, unspecified; D50.9 Iron deficiency anemia, unspecified; E11.22 Type 2 diabetes mellitus with diabetic chronic kidney disease; E78.5 Hyperlipidemia, unspecified; E53.8 Deficiency of other specified B group vitamins; E55.9 Vitamin D deficiency, unspecified; K57.10 Diverticulosis of small intestine without perforation or abscess without bleeding; K29.80 Duodenitis without bleeding; K29.70 Gastritis, unspecified, without bleeding; K57.30 Diverticulosis of large intestine without perforation or abscess without bleeding; K59.03 Drug induced constipation; T40.605A Adverse effect of unspecified narcotics, initial encounter; N40.0 Benign prostatic hyperplasia without lower urinary tract symptoms; M10.9 Gout, unspecified; M19.012 Primary osteoarthritis, left shoulder; R50.82 Postprocedural fever; R21 Rash and other nonspecific skin eruption; F41.9 Anxiety disorder, unspecified; F40.240 Claustrophobia; F32.A Depression, unspecified; Z86.010 Personal history of colon polyps
CPT/HCPCS: 36415; 71045; 74018; 74177; 74183; 74329; 76376; 76705; 80053; 80061; 81001; 82948; 83036; 83605; 83690; 85025; 85610; 85730; 86850; 86900; 86901; 87040; 88304; 96361; 96374; 96375; 96376; 99285; A9270; A9577; G0378; J0330; J0690; J1170; J1650; J1815; J2270; J2405; J2470; J2543; J2704; J3010; J7030; J7120; Q9966; Q9967

== ENCOUNTER 2024-07-29 08:20 | Outpatient (CLI) | payer OTHER, SELFPAY ==
[2024-07-29 08:58] LABS: Alanine Aminotransferase 19 U/L (6-50); Albumin Level 4.2 g/dL (3.5-5.1); Alkaline Phosphatase 126 U/L (38-126); Amylase 113 U/L (30-110); Anion Gap 13 mmol/L (4-12); Aspartate Amino Transferase 20 U/L (17-59); Bilirubin,Total 1.1 mg/dL (0.2-1.3); Blood Urea Nitrogen 23 mg/dL (9-20); Calcium 9.4 mg/dL (8.4-10.2); Carbon Dioxide 24 mmol/L (22-30); Chloride 99 mmol/L (98-107); Estimated Glomerular Filt Rate > 60; Glucose 179 mg/dL (65-110); Lipase 241 U/L (23-300); Potassium 4.1 mmol/L (3.4-5.0); Sodium 136 mmol/L (137-145)
[2024-07-29 09:35] LABS: Basophils Percent Auto 0.4 % (0.2-1.2); Eosinophils Absolute Auto 0.2 K/mm3 (0-0.3); Eosinophils Percent Auto 1.9 % (0-4.4); Hematocrit 33.6 % (42.0-52.0); Hemoglobin 10.7 g/dL (14.0-18.0); Immature Granulocyte Absolute 0.05 K/mm3 (0.00-0.031); Immature Granulocyte Percent A 0.6 % (0-0.5); Lymphocytes Absolute Auto 1.91 K/mm3 (0.9-3.2); Mean Corpuscular HGB Conc 31.8 g/dl (32-36); Mean Corpuscular Hemoglobin 29.5 pg (26-34); Mean Corpuscular Volume 92.6 fl (80-100); Mean Platelet Volume 9.9 fl (7.4-10.4); Monocytes Absolute Auto 0.9 K/mm3 (0.1-0.6); Monocytes Percent Auto 9.4 % (2.6-8.5); Neutrophils Absolute Auto 6.1 K/mm3 (1.3-6.7); Neutrophils Percent Auto 66.7 % (45.5-73.1); Platelet Count Result 190 k/mm3 (150-375); Red Blood Count 3.63 M/mm3 (4.6-6.20); Red Cell Distribution Width 13.1 % (11.5-14.5); White Blood Count 9.1 K/mm3 (4.5-10.0)
== END 2024-07-29 08:21 | disposition home or self-care (01) ==
PROVIDERS: PCP Family Medicine; Visit Provider Nurse Practitioner Family
DX: K85.10 Biliary acute pancreatitis without necrosis or infection (principal); K85.90 Acute pancreatitis without necrosis or infection, unspecified; R74.8 Abnormal levels of other serum enzymes; I10 Essential (primary) hypertension; R01.1 Cardiac murmur, unspecified
CPT/HCPCS: 36415; 80053; 82150; 83690; 85025

== ENCOUNTER 2024-09-05 10:24 | Outpatient (CLI) | payer OTHER, SELFPAY ==
[2024-09-05 10:49] LABS: Hematocrit 38.1 % (42.0-52.0); Hemoglobin 12.3 g/dL (14.0-18.0); Mean Corpuscular HGB Conc 32.3 g/dl (32-36); Mean Corpuscular Hemoglobin 29.5 pg (26-34); Mean Corpuscular Volume 91.4 fl (80-100); Mean Platelet Volume 9.6 fl (7.4-10.4); Platelet Count Result 173 k/mm3 (150-375); Red Blood Count 4.17 M/mm3 (4.6-6.20); White Blood Count 8.3 K/mm3 (4.5-10.0)
[2024-09-05 10:56] LABS: Anion Gap 14 mmol/L (4-12); Blood Urea Nitrogen 37 mg/dL (9-20); Calcium 9.5 mg/dL (8.4-10.2); Carbon Dioxide 24 mmol/L (22-30); Chloride 99 mmol/L (98-107); Estimated Glomerular Filt Rate 55; Glucose 190 mg/dL (65-110); Potassium 4.6 mmol/L (3.4-5.0); Sodium 137 mmol/L (137-145)
[2024-09-05 11:12] LABS: Iron 86 ug/dL (49-181)
[2024-09-05 11:21] LABS: Percent Iron Saturation 22 % (20-50)
[2024-09-05 12:07] LABS: Folic Acid > 20.0 ng/mL (2.76->20)
== END 2024-09-05 10:25 | disposition home or self-care (01) ==
PROVIDERS: PCP Family Medicine; Visit Provider Nurse Practitioner Family
DX: I10 Essential (primary) hypertension (principal); D64.9 Anemia, unspecified; R01.1 Cardiac murmur, unspecified
CPT/HCPCS: 36415; 80048; 82607; 82746; 83540; 83550; 85027

== ENCOUNTER 2025-09-06 13:15 | Outpatient (CLI) | payer OTHER, SELFPAY ==
--- OUTSIDE RECORDS SUMMARY | 2025-09-06 13:31 | XMS_ITS | Patient Health Record ---
Author Organization [facility] [employer] [facility] Address [address] [place] [address] Care Team Providers Care Felling Bucking Supervisor Name Role Phone Aashish Arriaza Unavailable [phone] Reason For Referral No Information Medications Medication SIG (Take, Route, Frequency, Duration) Notes Start Date End Date Status metFORMIN HCl ER 500 MG Tablet Extended Release 24 Hour Oral Active clonazePAM 0.5 MG Tablet Oral Active buPROPion HCl ER (XL) 150 MG Tablet Extended Release 24 Hour Oral Active Meloxicam 15 MG Tablet Oral Active Lisinopril 30 MG Tablet Oral Active Rosuvastatin Calcium 20 MG Tablet Oral Active traMADol HCl 50 MG Tablet Oral Active Allopurinol 100 MG Tablet Oral Active Carvedilol 12.5 MG Tablet Oral Active Tamsulosin HCl 0.4 MG Capsule Oral Active Social History Social History Additional Details Category Social Info Options Details Migrated Social History Migrated Social History Tobacco Years: Never smoker 02/01/2021 Plan Of Treatment No Information Insurance Providers Payer Name Payer Address Payer Phone Subscriber Number Group Number Insured Name Patient Relationship to Insured Coverage Start Date Coverage End Date [facility] [facility] [employer] [address] [place] [address] [id number] YOLA REAGAN Self - patient is the insured
--- OUTSIDE RECORDS SUMMARY | 2025-09-06 13:31 | XMS_ITS | Encounter Summary ---
Author Organization [facility] Address [facility] [place] [address] Care Team Providers Care Tile Erector Name Role Phone Debbie Matta PTA Primary Care Provider Unava ilable Encounter Details Date Type Department Care Team (Late st Contact Info) Description 05/09/[address] 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
--- OUTSIDE RECORDS SUMMARY | 2025-09-06 13:31 | XMS_ITS | Clinical Summary ---
Author Organization [facility] [address] Address [address] [place] [address] Care Team Providers Care Government Relations Director Name Role Phone Humble Redmond MD Primary Care Provider + [phone] Allergies Active Allergy Reactions Criticality Noted Date Comments Codeine Naproxen Medications clonazePAM (KlonoPIN) 0.5 mg tablet take 1 tablet by oral route 3 times every day 0 0 6 Active tamsulosin (FLOMAX) 0.4 mg capsule,extende d release 24hr take 1 by Oral route every day 0 0 6 Active Additional Information Patient taking differently:0.4 mgoral Every morning, Indications: benign prostatic hyperplasia with lower urinary tract sx, Informant: Self, Reported on 01/31/2024 carvedilol (COREG) 12.5 mg tablet take by Oral route 2 times every 0 0 6 Active Additional Information Patient taking differently:12.5 mgoral 2 times daily with meals (bkfst, dinner), Indications: hypertension, Informant: Self, Reported on 01/31/2024 rosuvastatin (CRESTOR) 40 mg tabletIndicatio ns:hyperlipidem ia Take 1 tablet (40 mg total) by mouth every morning at bedtime 4 Active lisinopriL (PRINIVIL,ZESTR IL) 40 mg tabletIndicatio ns:hypertension Take 1 tablet (40 mg total) by mouth every evening 4 Active allopurinoL (ZYLOPRIM) 100 mg tabletIndicatio ns:prevention of acute gout attack Take 1 tablet (100 mg total) by mouth every morning 4 Active icosapent ethyL (VASCEPA) 1 gram capsuleIndicati ons:hypertrigly ceridemia Take 2 capsules (2 g total) by mouth 2 (two) times a day 4 Active Farxiga 10 mg tabletIndicatio ns:type 2 diabetes mellitus Take 1 tablet (10 mg total) by mouth every evening 3 Active buPROPion XL (WELLBUTRIN XL) 150 mg 24 hr tabletIndicatio ns:Anxiety with Depression Take 1 tablet (150 mg total) by mouth every morning 4 Active acetaminophen (TYLENOL) 325 mg tabletIndicatio ns:Pain Take 2 tablets (650 mg total) by mouth every 6 (six) hours as needed for pain Active cholecalciferol (VITAMIN D-3) 50,000 unit capsule Take one capsule a week for 8 weeks. 8 capsule 4 Active celecoxib (CeleBREX) 100 mg capsule Take 1 capsule (100 mg total) by mouth 2 (two) times a day 60 capsule 4 Active aspirin 81 mg enteric coated tablet Take 1 tablet (81 mg total) by mouth 2 (two) times a day 28 tablet 4 Active senna-docusate (PERICOLACE) 8.6-50 mg Take 1 tablet by mouth 2 (two) times a day as needed for constipation 30 tablet 4 Active oxyCODONE (ROXICODONE) 5 mg immediate release tabletIndicatio ns:Pain Take 1 tablet (5 mg total) by mouth every 8 (eight) hours as needed for pain 24 tablet 4 Active Active Problems Problem Noted Date Diagnosed Date Glenohumeral arthritis, left 02/14/2024 Arthritis of left glenohumeral joint 01/28/2024 Multiple-type hyperlipidemia 07/09/2016 Overview (03/07/2017): Mixed hyperlipidemia Dyspnea on exertion 07/09/2016 Overview (03/07/2017): COX (dyspnea on exertion) Essential hypertension 07/09/2016 Overview (03/07/2017): Essential hypertension 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 Overview (03/07/2017): Pulmonary valve disorder Chronic kidney disease 07/09/2016 Overview (03/07/2017): Chronic kidney disease, unspecified Disorder of right ventricle of heart 07/09/2016 Overview (03/07/2017): Right ventricular enlargement Encounters Date Type Department Care Team Description 09/06/2025 5:45 PM CDT Hospital Encounter [address] [address] from Last 3 Months Surgical History Surgery Date Site/Laterality Comments COLONOSCOPY Medical History Medical History Date Comments Kidney disorder Renal disease Hx Other Medical panic attacks; Comments: [facility] 07/09/2016 - Hx Other Medical diverticulitis; Comments: [facility] 07/09/2016 - Hx Other Medical BPH, GERD, gout , arthritis; Comments: [facility] 07/09/2016 - OA (osteoarthritis) History of BPH HTN (hypertension) DM2 (diabetes mellitus, type 2) Family History Medical History Relation Name Comments Hypertension Brother Hypertension; Heart attack Father 2 Myocardial infa rction; Cause of : Myocardial infarction Other Mother Unknown; Cause of : Unknown Relation Name Status Comments Brother Father 1 (Age 66) Father 2 Mother Social History Tobacco Use Types Packs/Day Years Used Date Smoking Tobacco: Never Smokeless Tobacco: Never Tobacco Cessation:Counseling Given: Not Answered Alcohol Use Standard Drinks/Week Comments No 0 (1 standard drink = 0.6 oz pur e alcohol) AUDIT-C Answer Date Recorded Q1: How often do you have a drink containing alcohol? Never 02/14/2024 Q2: How many drinks containi ng alcohol do you have on a typical day when you are drinking? Patient does not drink Q3: How often do you have si x or more drinks on one occasion? Never 02/14/2024 Personal Safety Answer Date Recorded Have you ever been in or are you currently in a harmful physical or emotional relationship or is someone making you feel afraid or unsafe? 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 Gender Identity Not on file Sexual Orientation Not on file Obstetrics History Last Filed Vital Signs Vital Sign Reading Time Taken Comments Blood Pressure 141/80 02/14/2024 11:37 AM CDT Pulse 80 02/14/2024 10:20 AM CDT Temperature 36.5 C (97.7 F) 02/14/2024 10:07 AM CDT Respiratory Rate 18 02/14/2024 10:2 0 AM CDT Oxygen Saturation 91% 02/14/2024 10: 20 AM CDT Inhaled Oxygen Concentration - - Weight 106.4 kg (234 lb 9.1 oz) 024 12:45 PM SPOOLING MACHINE OPERATOR Height 180.3 cm (5' 11) 01/31/2024 12: 45 PM SPOOLING MACHINE OPERATOR Body Mass Index 32.72 01/31/2024 12:45 PM SPOOLING MACHINE OPERATOR Plan of Treatment Upcoming Encounters Date Type Department Care Team (Late st Contact Info) Description 09/06/2025 5:45 PM CDT Hospital Encounter [address] [address] Health Maintenance Due Date Last Done Comments Colon Cancer Screening-Colonoscopy 1960 Depression Screening 1960 Hepatitis C Screening 1960 Prostate Cancer Screening-PSA 1958 Hepatitis B Screening 1976 Pneumococcal vaccine 65+ (1 of 1 - PCV) 2008 Zoster Vaccine (1 of 2) 2008 Well Visit 65+ 2023 Fall Risk Assessment 02/13/2025 02/14/2024 Covid-19 Vaccine (7 - 2024-2 6 season) 2025 09/27/2023, 10/26/2022, 06/02/2022, Additional history exists Influenza Vaccine (#1) 2025 , 10/26/2022, 11/14/2021, Additional history exists DTaP/Tdap/Td Vaccine (2 - Td or Tdap) 07/24/2028 07/24/2018 Medical Devices Implanted Type Area Forensic Psychologist Device Identifier Shelf Expiration Date Model / Serial / Lot Audaster 29mm Full Wedge Augment Shoulder 15d Baseplate Glenoid [id number] - [id number] Implanted:Qty: 1 on 02/14/2024 by Jania Cano MD at [facility] Left: Shoulder [employer] 10/25/2028 [id number] / / [employer] Aequalis Perform Reversed Od6.5 Mm L30 Mm Central Glenoid Screw Baseplate Nonsterile [id number] - [id number] Implanted:Qty: 1 on 02/14/2024 by Jania Cano MD at [facility] Left: Shoulder [employer] [id number] / / [employer] Aequalis Perform Reversed 5mm 34mm Peripheral Glenoid Screw [id number] - [id number] Implanted:Qty: 1 on 02/14/2024 by Jania Cano MD at [facility] Left: Shoulder [employer] [id number] / / [employer] Aequalis Perform Reversed 5mm 26mm Peripheral Glenoid Screw [id number] - [id number] Implanted:Qty: 1 on 02/14/2024 by Jania Cano MD at [facility] Left: Shoulder [employer] [id number] / / [employer] Aequalis Perform Reversed 5mm 22mm Peripheral Glenoid Screw [id number] - [id number] Implanted:Qty: 1 on 02/14/2024 by Jania Cano MD at [facility] Left: Shoulder [employer] [id number] / / [employer] Aequalis Perform Reversed 5mm 38mm Peripheral Glenoid Screw [id number] - [id number] Implanted:Qty: 1 on 02/14/2024 by Jania Cano MD at [facility] Left: Shoulder [employer] [id number] / / [employer] Tornier Aequalis Perform Od42 Mm Reverse Shoulder Standard Sphere Glenoid [id number] - [id number] - [id number] Implanted:Qty: 1 on 02/14/2024 by Jania Cano MD at [facility] Left: Shoulder [employer] 07/09/2028 [id number] / [id number] / [employer] Stem Perform Sz 3 Plus Humeral Long Dwx3pl - [id number] Implanted:Qty: 1 on 02/14/2024 by Jania Cano MD at [facility] [employer] 10/21/2028 [id number] / / [employer] Insert Humeral Size 3/4 +0 Aequalis Perform 42mm [id number] - [id number] Implanted:Qty: 1 on 02/14/2024 by Jania Cano MD at [facility] [employer] 08/04/2028 [id number] / / Insurance BL CHO[place] PRF PPO [place] [facility] ADVANTAGE CHOICE PPO [employer] CHOICE PPO Care Teams Government Relations Director Relationship Specialty Start Date End Date Humble Redmond MD PCP - General 06/21/10
--- OUTSIDE RECORDS SUMMARY | 2025-09-06 13:31 | XMS_ITS | Clinical Summary ---
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 Gender Identity Not on file Sexual Orientation Not on file Plan of Treatment Health Maintenance Due Date Last Done Comments Colorectal Cancer Screening Colonoscopy (10 Years) 1958 Hepatitis C 1976 DTaP, Tdap and Td Vaccines ( 1 - Tdap) 1977 Pneumococcal Vaccine: 50+ Ye ars (1 of 1 - PCV) 2008 Zoster Vaccines (1 of 2) 2008 COVID-19 Vaccine (2023-2 5 season) 2025 RSV Immunization or 60+ Years (1 - 1-dose 75+ series) 2033 Meningococcal B Vaccine Aged Out No l onger eligible based on patient's age to complete this topic Meningococcal Vaccine Aged Out No angelito earlene eligible based on patient's age to complete this topic RSV Immunizations Under 20 Months Aged Out No longer eligible based on patient's age to complete this topic Insurance [facility] Care Teams Otolaryngology Teacher Relationship Specialty Start Date End Date Debbie Matta PTA PCP - General PHYSICAL THERAPY 06/29/19
--- OUTSIDE RECORDS SUMMARY | 2025-09-06 13:31 | XMS_ITS | Clinical Summary ---
Author Organization [facility] Address [address] [place] [address] Phone Care Team Providers Care Survey Crew Chief Name Role Phone Unavailable Primary Care Provider Unavailabl e Medications carvedilol (COREG) 12.5 MG tablet 1 tab/cap bid 0 07/14/2017 Active allopurinol (ZYLOPRIM) 100 MG tablet 1 tab/cap qday 0 07/14/2017 Active clonazePAM (KlonoPIN) 0.5 MG tablet 1 tab/cap tid PRN 0 07/14/2017 Active tamsulosin (FLOMAX) 0.4 MG 24 hr capsule 1 tab/cap qday 0 07/14/2017 Active Linagliptin (TRADJENTA) 5 MG tablet 1 tab/cap qday 0 07/15/2017 Active cyclobenzaprine (FLEXERIL) 10 MG tablet 1 tab/cap bid PRN 0 07/14/2017 Active traMADol (ULTRAM) 50 MG tablet 1 tab/cap q6hr PRN 0 07/14/2017 Active rosuvastatin (CRESTOR) 20 MG tablet 1 tab/cap qday 0 07/14/2017 Active lisinopril (PRINIVIL,ZESTRI L) 30 MG tablet 1 tab/cap qday 0 07/14/2017 Active Active Problems Problem Noted Date Diagnosed Date Chronic kidney disease, stage 3 (moderate) 07/14 Hypertensive chronic kidney disease with stage 1 through stage 4 chronic kidney disease, or unspecified chronic kidney disease 07/14/2017 Other hyperlipidemia 07/14/2017 Overview (02/14/2019): Converted unresolved ICD9, potential mismatch. Gout 07/14/2017 Benign prostatic hyperplasia without lower urinary tract symptom 07/14/2017 Type 2 diabetes mellitus without complication Type 2 diabetes mellitus wit h other diabetic kidney complication 07/14/2017 Family History Medical History Relation Comments Heart disease Father Hypertensive disorder Mother Malignant neoplastic disease Mother Kidney disease Neg Hx Kidney stone Neg Hx Relation Status Comments Father Mother Social History Tobacco Use Types Packs/Day Years Used Date Smoking Tobacco: Never Assessed Sex and Gender Information Value Date Recorded Sex Assigned at Not on file Legal Sex Male 7:43 AM MST Gender Identity Not on file Sexual Orientation Not on file Last Filed Vital Signs Vital Sign Reading Time Taken Comments Blood Pressure 128/74 08/26/2017 12:01 AM CDT Sitting, Right Pulse - - Temperature 36.6 C (97.8 F) 08/26/2017 12:01 AM CDT Respiratory Rate - - Oxygen Saturation - - Inhaled Oxygen Concentration - - Weight 107 kg (235 lb) 08/26/2017 12:01 AM CDT Height 177.8 cm (5' 10) 08/26/2017 12: 01 AM CDT Body Mass Index 33.72 08/26/2017 12:01 AM CDT Plan of Treatment Not on file
--- OUTSIDE RECORDS SUMMARY | 2025-09-06 13:31 | XMS_ITS | Encounter Summary ---
Author Organization [facility] Address [facility] [place] [address] Care Team Providers Care Radar Technician Name Role Phone Debbie Matta PTA Primary Care Provider Unava ilable Encounter Details Date Type Department Care Team (Late st Contact Info) Description 08/29/[address] 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
[2025-09-06 13:45] LABS: Hematocrit 37.7 % (42.0-52.0); Hemoglobin 12.4 g/dL (14.0-18.0); Mean Corpuscular HGB Conc 32.9 g/dl (32-36); Mean Corpuscular Hemoglobin 29.4 pg (26-34); Mean Corpuscular Volume 89.3 fl (80-100); Platelet Count Result 169 k/mm3 (150-375); Red Blood Count 4.22 M/mm3 (4.6-6.20); White Blood Count 10.0 K/mm3 (4.5-10.0)
[2025-09-06 14:07] LABS: Alanine Aminotransferase 24 U/L (6-50); Albumin Level 4.6 g/dL (3.5-5.1); Alkaline Phosphatase 79 U/L (38-126); Anion Gap 13 mmol/L (4-12); Aspartate Amino Transferase 33 U/L (17-59); Bilirubin,Total 1.4 mg/dL (0.2-1.3); Blood Urea Nitrogen 20 mg/dL (9-20); Calcium 9.5 mg/dL (8.4-10.2); Carbon Dioxide 23 mmol/L (22-30); Chloride 98 mmol/L (98-107); Cholesterol 95 mg/dL (0-200); Estimated Glomerular Filt Rate > 60; Glucose 179 mg/dL (65-110); HDL Direct 36 mg/dL; Potassium 4.6 mmol/L (3.4-5.0); Sodium 134 mmol/L (137-145); Total Protein 8.2 g/dL (6.3-8.2); Triglycerides 335 mg/dL (<150)
--- OUTSIDE RECORDS SUMMARY | 2025-09-06 14:11 | XMS_ITS | Clinical Summary ---
Author Organization [facility] [address] Address [address] [place] [address] Care Team Providers Care Certified Medical Biller Name Role Phone Humble Redmond MD Primary Care Provider + [phone] Allergies Active Allergy Reactions Criticality Noted Date [...] Description 09/06/2025 5:45 PM CDT Hospital Encounter [address] [address] from Last 3 Months Surgical History Surgery Date Site/Laterality Comments COLONOSCOPY Medical History Medical History Date Comments Kidney disorder Renal disease Hx Other Medical panic attacks; Comments: [facility] 07/09/2016 - Hx Other Medical diverticulitis; Comments: [facility] 07/09/2016 - Hx Other Medical BPH, GERD, gout , arthritis; Comments: [facility] 07/09/2016 - OA (osteoarthritis) History of BPH [...] on file 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 Gender Identity Not on file Sexual [...] (234 lb 9.1 oz) 024 12:45 PM WELDING ROBOT OPERATOR Height 180.3 cm (5' 11) 01/31/2024 12: 45 PM WELDING ROBOT OPERATOR Body Mass Index 32.72 01/31/2024 12:45 PM WELDING ROBOT OPERATOR Plan of Treatment Upcoming Encounters Date Type Department Care Team (Late st Contact Info) Description 09/06/2025 5:45 PM CDT Hospital Encounter [address] [address] Health Maintenance Due Date Last Done Comments [...] 07/24/2028 07/24/2018 Medical Devices Implanted Type Area Vault Custodian Device Identifier Shelf Expiration Date Model / Serial / Lot [employer] 29mm Full Wedge Augment Shoulder 15d Baseplate Glenoid [id number] - [id number] Implanted:Qty: 1 on 02/14/2024 by Jania Cano MD at [facility] Left: Shoulder [employer] 10/25/2028 [id number] / / [employer] Aequalis Perform Reversed Od6.5 Mm L30 Mm Central Glenoid Screw Baseplate Nonsterile [id number] - [id number] Implanted:Qty: 1 on 02/14/2024 by Jania Cano MD at [facility] Left: Shoulder [employer] [id number] / / [employer] Aequalis Perform Reversed 5mm 34mm Peripheral Glenoid Screw [id number] - [id number] Implanted:Qty: 1 on 02/14/2024 by Jania Cano MD at [facility] Left: Shoulder [employer] [id number] / / [employer] Aequalis Perform Reversed 5mm 26mm Peripheral Glenoid Screw [id number] - [id number] Implanted:Qty: 1 on 02/14/2024 by Jania Cano MD at [facility] Left: Shoulder [employer] [id number] / / [employer] Aequalis Perform Reversed 5mm 22mm Peripheral Glenoid Screw [id number] - [id number] Implanted:Qty: 1 on 02/14/2024 by Jania Cano MD at [facility] Left: Shoulder [employer] [id number] / / [employer] Aequalis Perform Reversed 5mm 38mm Peripheral Glenoid Screw [id number] - [id number] Implanted:Qty: 1 on 02/14/2024 by Jania Cano MD at [facility] Left: Shoulder [employer] [id number] / / [employer] Tornier Aequalis Perform Od42 Mm Reverse Shoulder Standard Sphere Glenoid [id number] - [id number] - [id number] Implanted:Qty: 1 on 02/14/2024 by Jania Cano MD at [facility] Left: Shoulder [employer] 07/09/2028 [id number] / [id number] / [employer] Stem Perform Sz 3 Plus Humeral Long Dwx3pl - [id number] Implanted:Qty: 1 on 02/14/2024 by Jania Cano MD at [facility] [employer] 10/21/2028 [id number] / / [employer] Insert Humeral Size 3/4 +0 Aequalis Perform 42mm [id number] - [id number] Implanted:Qty: 1 on 02/14/2024 by Jania Cano MD at [facility] [employer] 08/04/2028 [id number] / / Insurance BL CHOICE PRF [place] [facility] ADVANTAGE CHOICE PPO [employer] ADVANTAGE CHOICE PPO Care Teams Certified Medical Biller Relationship Specialty Start Date End Date Humble Redmond MD PCP - General 06/21/10
--- OUTSIDE RECORDS SUMMARY | 2025-09-06 14:11 | XMS_ITS | Clinical Summary ---
Author Organization [facility] Address [address] [place] [address] Phone Care Team Providers Care City Editor Name Role Phone Unavailable Primary Care Provider [...]
--- OUTSIDE RECORDS SUMMARY | 2025-09-06 14:11 | XMS_ITS | Encounter Summary ---
Author Organization [facility] Address [facility] [place] [address] Care Team Providers Care Hardware Installation Coordinator Name Role Phone Debbie Matta PTA Primary Care Provider Unava ilable Encounter Details Date Type Department Care Team (Late st Contact Info) Description 05/09/[address] 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
--- OUTSIDE RECORDS SUMMARY | 2025-09-06 14:11 | XMS_ITS | Encounter Summary ---
Author Organization [facility] Address [facility] [place] [address] Care Team Providers Care Ncqa Specialist Name Role Phone Debbie Matta PTA Primary Care Provider Unava ilable Encounter Details Date Type Department Care Team (Late st Contact Info) Description 08/29/[address] 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
--- OUTSIDE RECORDS SUMMARY | 2025-09-06 14:11 | XMS_ITS | Clinical Summary ---
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
[2025-09-06 14:42] LABS: Prostate Specific Antigen 1.6 ng/mL (< OR = 4.0)
--- OUTSIDE RECORDS SUMMARY | 2025-09-06 17:45 | XMS_ITS | Encounter Summary ---
Author Organization [facility] Address [address] [place] [address] Care Team Providers Care Farm Management Teacher Name Role Phone Humble Redmond MD Primary Care Provider [phone] Reason for Visit * Diagnostic Imaging (Routine) - Authorized Specialty Diagnoses / Procedures Referred By Frank lao Referred To Contact Radiology Diagnoses Personal history of other diseases of the digestive system Diarrhea, unspecified type Generalized abdominal pain Procedures CT Abdomen Pelvis W WO Contrast Thuy Nobles NP [address] [facility] [address] [place] [address] Phone: tel: fax: [address] [address] Referral ID Status Reason Start Date Expiration Date V isits Requested Visits Authorized [id number] Authorized 08/18/2025 09/17/2026 1 1 Encounter Details Date Type Department Care Team (Late st Contact Info) Description 09/06/2025 5:45 PM CDT Hospital Encounter [address] [id number] Social History Tobacco Use Types Packs/Day Years Used Date Smoking Tobacco: Never Smokeless Tobacco: Never Alcohol Use Standard Drinks/Week Comments No 0 [...] on file 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 Gender Identity Not on file Sexual Orientation Not on file documented as of this encounter Plan of Treatment Scheduled Orders Name Type Priority Associated Diagnoses Orde r Schedule CT Abdomen Pelvis W WO Contrast Imaging Schedule Routine, Read Routine (OP Routine) Personal history of other diseases of the digestive system Diarrhea, unspecified type Generalized abdominal pain Expected: 08/18/2025, Expires: 08/18/2026 documented as of this encounter Visit Diagnoses Not on filedocumented in this encounter Care Teams Farm Management Teacher Relationship Specialty Start Date End Date Humble Redmond MD PCP - General 06/21/10 documented as of this encounter
--- OUTSIDE RECORDS SUMMARY | 2025-09-06 17:45 | XMS_ITS | Encounter Summary ---
Author Organization [facility] Healthcare Address [address] [place] [address] Care Team Providers Care Grassroots Organizer Name Role Phone Humble Redmond MD Primary Care Provider [phone] Reason for Visit * Diagnostic Imaging (Routine) - Authorized Specialty Diagnoses / Procedures Referred By Frank lao Referred To Contact Radiology Diagnoses Personal history of other diseases of the digestive system Diarrhea, unspecified type Generalized abdominal pain Procedures CT Abdomen Pelvis W WO Contrast Thuy Nobles NP [address] [facility] [address] [place] [address] Phone: tel: fax: [address] [phone] Referral ID Status Reason Start Date Expiration Date V isits Requested Visits Authorized [id number] Authorized 08/18/2025 09/17/2026 1 1 Encounter Details Date Type Department Care Team (Late st Contact Info) Description 09/06/2025 5:45 PM CDT Hospital Encounter [address] [address] Social History Tobacco Use Types Packs/Day Years [...] on file 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
[2025-09-07 15:09] LABS: Deamidated Gliadin Abs, IgA 9 units (0-19); Deamidated Gliadin Abs, IgG 2 units (0-19); Immunoglobulin A, Qn 558 mg/dL (61-437)
[2025-09-08 14:08] LABS: Calprotectin, Fecal 224 ug/g (0-120); Pancreatic Elastase, Fecal >800 (>200)
== END 2025-09-06 13:16 | disposition home or self-care (01) ==
PROVIDERS: PCP Family Medicine; Referring Provider Nurse Practitioner Family; Visit Provider Nurse Practitioner Family
DX: R19.7 Diarrhea, unspecified (principal); E11.9 Type 2 diabetes mellitus without complications; R68.81 Early satiety; I10 Essential (primary) hypertension; E78.2 Mixed hyperlipidemia; E55.9 Vitamin D deficiency, unspecified; R74.8 Abnormal levels of other serum enzymes; Z12.5 Encounter for screening for malignant neoplasm of prostate; R41.3 Other amnesia; R14.0 Abdominal distension (gaseous)
CPT/HCPCS: 36415; 80053; 80061; 82306; 82653; 82784; 83993; 84153; 85027; 86231; 86258; 87045; 87427; G0103